=== PATIENT | male | born 1940 | race Caucasian/White ===

== ENCOUNTER 2019-01-05 12:33 | Inpatient (IN) ==
--- NOTE | 2019-01-05 09:19 | Discharge Summary ---
<Rey Arana - Last Filed: 01/05/19 09:22> Date of Encounter: 01/05/19 - Discharge Diagnosis (1) Status post right hip replacement Priority: Primary Status: Acute (2) Right hip pain Priority: Primary Status: Acute (3) Renal mass Priority: Secondary Status: Chronic (4) AAA (abdominal aortic aneurysm) Priority: Secondary Status: Chronic Qualifiers: Presence of rupture: without rupture Qualified Code(s): I71.4 - Abdominal aortic aneurysm, without rupture (5) Mass of right hip region Status: Acute (6) COPD (chronic obstructive pulmonary disease) Priority: Secondary Status: Acute Qualifiers: COPD type: unspecified COPD Qualified Code(s): J44.9 - Chronic obstructive pulmonary disease, unspecified (7) Afib Priority: Secondary Status: Acute Qualifiers: Atrial fibrillation type: unspecified Qualified Code(s): I48.91 - Unspecified atrial fibrillation (8) CAD (coronary artery disease) Priority: Secondary Status: Acute Qualifiers: Coronary Disease-Associated Artery/Lesion type: unspecified vessel or lesion type - Hospital Course Hospital course: Mr. Parker is a 78 year old male - Time Spent with Patient Total time spent providing and/or coordinating discharge services: - Discharge Medications Prescriptions: New Docusate [Colace] 100 mg PO BID 5 Days #10 capsule OxyCODONE Immed Rel [Roxicodone 5 MG] 5 mg PO Q6HR PRN 5 Days #20 tablet PRN Reason: Severe Pain OxyCODONE Immed Rel [Roxicodone 5 MG] 5 mg PO Q6HR PRN 5 Days #20 tablet PRN Reason: Pain Metoprolol XL (24 HR) Succ [Toprol Xl] 100 mg PO DAILY #30 tab.er.24h Continued Aspirin [Adult Aspirin] 81 mg PO DAILY Dabigatran Etexilate Mesylate [Pradaxa] 150 mg PO BID Diltiazem CD (24hr) [Cardizem CD] 240 mg PO DAILY GlipiZIDE XL (24 HR) [Glucotrol XL] 10 mg PO DAILY Ipratropium Neb [Atrovent Neb] 0.5 mg IH Q6HR PRN PRN Reason: Shortness Of Breath Levalbuterol Neb [Xopenex Neb] 1.25 mg IH Q8H PRN PRN Reason: Shortness Of Breath Losartan Potassium 100 mg PO DAILY Docusate [Colace] 100 mg PO QPM PRN PRN Reason: Constipation Changed Metoprolol Succinate 100 mg PO HS 30 Days #30 tab.er.24h Discontinued Metoprolol Tartrate 100 mg PO QAM Home Medications: Aspirin [Adult Aspirin] 81 mg PO DAILY 01/05/19 [History] Dabigatran Etexilate Mesylate [Pradaxa] 150 mg PO BID 01/05/19 [History] Diltiazem CD (24hr) [Cardizem CD] 240 mg PO DAILY 01/05/19 [History] Docusate [Colace] 100 mg PO BID 5 Days #10 capsule 01/05/19 [Rx] Docusate [Colace] 100 mg PO QPM PRN 01/05/19 [History] GlipiZIDE XL (24 HR) [Glucotrol XL] 10 mg PO DAILY 01/05/19 [History] Ipratropium Neb [Atrovent Neb] 0.5 mg IH Q6HR PRN 01/05/19 [History] Levalbuterol Neb [Xopenex Neb] 1.25 mg IH Q8H PRN 01/05/19 [History] Losartan Potassium 100 mg PO DAILY 01/05/19 [History] OxyCODONE Immed Rel [Roxicodone 5 MG] 5 mg PO Q6HR PRN 5 Days #20 tablet 01/05/19 [Rx] OxyCODONE Immed Rel [Roxicodone 5 MG] 5 mg PO Q6HR PRN 5 Days #20 tablet 01/05/19 [Rx] Metoprolol Succinate 100 mg PO HS 30 Days #30 tab.er.24h 01/08/19 [Rx] Metoprolol XL (24 HR) Succ [Toprol Xl] 100 mg PO DAILY #30 tab.er.24h 01/08/19 [Rx] Allergies/Adverse Reactions: Allergy/AdvReac Type Severity Reaction Status Date / Time albuterol Allergy See Verified 01/05/19 13:07 Comments heparin Allergy See Verified 01/05/19 13:22 Comments - Patient Status Disposition: Home Health Service Condition: Good - Discharge Instructions Instructions: Minimally Invasive Total Hip Replacement (DC), Precautions after Total Joint Replacement Surgery (DC), Joint Replacement Surgery (DC) Follow Up With: Ratna Arambula, REED WORKER [Primary Care Provider] - (Please call the office of your PCP on Wednesday to schedule a follow-up appointment. Make sure to tell the office that you were discharged on 01/08/19 and need to make an appointment.) <Crystal Ramirez - Last Filed: 01/09/19 18:02> - NOTES TO OUTPATIENT PROVIDER Notes to Outpatient Provider: Follow up cardiology within 1 week for afib management. Follow up oncology within 1 week for metastatic renal cell carcinoma. Date of Encounter: 01/09/19 Time of Encounter: 17:55 - Discharge Diagnosis (1) Status post right hip replacement Priority: Primary Status: Acute (2) Osteoarthritis of right hip Priority: Primary Status: Chronic Qualifiers: Osteoarthritis type: unspecified Qualified Code(s): M16.11 - Unilateral primary osteoarthritis, right hip (3) Lytic bone lesion of right femur Priority: Primary Status: Acute (4) Diabetes mellitus Priority: Secondary Status: Chronic Qualifiers: Diabetes mellitus type: type 2 Diabetes mellitus box brander insulin use: without fpc use Diabetes mellitus complication status: without complication Qualified Code(s): E11.9 - Type 2 diabetes mellitus without complications (5) History of CHF (congestive heart failure) Priority: Secondary Status: Chronic (6) Pacemaker Priority: Secondary Status: Chronic (7) Tobacco dependence Priority: Secondary Status: Chronic (8) HTN (hypertension) Priority: Secondary Status: Chronic Qualifiers: Hypertension type: unspecified Qualified Code(s): I10 - Essential (primary) hypertension (9) HLD (hyperlipidemia) Priority: Secondary Status: Chronic Qualifiers: Hyperlipidemia type: unspecified Qualified Code(s): E78.5 - Hyperlipidemia, unspecified (10) Rheumatoid arthritis Priority: Secondary Status: Chronic Qualifiers: Rheumatoid arthritis location: unspecified site Rheumatoid factor presence: unspecified presence Qualified Code(s): M06.9 - Rheumatoid arthritis, unspecified (11) Afib Priority: Secondary Status: Chronic Qualifiers: Atrial fibrillation type: chronic Qualified Code(s): I48.2 - Chronic atrial fibrillation (12) CAD (coronary artery disease) Priority: Secondary Status: Chronic Qualifiers: Coronary Disease-Associated Artery/Lesion type: unspecified vessel or lesion type [place] vs. transplanted heart: [place] heart Associated angina: angina presence unspecified Qualified Code(s): I25.10 - Atherosclerotic heart disease of [place] coronary artery without angina pectoris (13) COPD (chronic obstructive pulmonary disease) Priority: Secondary Status: Chronic Qualifiers: COPD type: unspecified COPD Qualified Code(s): J44.9 - Chronic obstructive pulmonary disease, unspecified (14) AAA (abdominal aortic aneurysm) Priority: Secondary Status: Acute Qualifiers: Presence of rupture: without rupture Qualified Code(s): I71.4 - Abdominal aortic aneurysm, without rupture (15) Renal mass Priority: Secondary Status: Acute - Hospital Course Hospital course: Mr. Parker is a 78 year old male status post right THR 01/05 secondary to OA and right proximal femur lytic mass with medical history of DM, CAD on pradaxa, CHF, Afib with pacemaker, COPD, smoker, HTN, RA, AAA and renal mass. Hospitalist team consulted for medical management and patient did develop afib rvr after surgery which was controlled with cardizem drip then weaned to PO cardizem. Patient will have follow up with steam shovel oiler within 1 week for fu rther management and evaluation. Oncology was consulted for the new finding of renal mass just before surgery with likely diagnosis of metastatic renal cell carcinoma and secondary lytic lesion to right hip. chest scan did also show multiple noncalcified pulmonary nodules. Patient will follow up with oncology later this week to discuss further management. Patient did participate in therapy and was deemed stable at time of discharge, order given by Dr. Carr yesterday. He will follow up in [facility] office in 1 week for reevaluation. - Time Spent with Patient Total time spent providing and/or coordinating discharge services: Date of admission: 01/05/19 Consults: 01/05/19 14:35 Consult to Hospitalist [CONS] Routine Consulting Provider: Hospitalist Zack Reason for Consult: postop medical care - significant comorbidities, new renal mass Time Notified: 14:42 Call Completed: Yes 01/05/19 14:46 Consult to Oncology [CONS] Routine Consulting Provider: Oncology [facility] Reason for Consult: renal mass Time Notified: 14:48 Call Completed: Yes 01/05/19 18:28 Consult to Nurse Navigator [CONS] Routine Comment: ortho navigator Consult to Nutrition [CONS] Routine Comment: Chocolate Ensure or Boost Consulting Provider: NUTRITION Reason for Dietary Consult: Other PO Supplementation Other:: Proper nutrition to facilitate wound healing Consult to Occupational Therapy [CONS] Routine Comment: Evaluate, develop and implement POC Reason for Consult: total hip replacement Does patient have active BEDREST order?: No Is patient medically & hemodynamically stable?: Yes Consult to Physical Therapy [CONS] Routine Comment: Evaluate, develop and implement POC Reason for Consult: total hip replacement Does patient have active BEDREST order?: No Is patient medically & hemodynamically stable?: Yes Consult to Filter Operator [CONS] Routine Reason for SW Consult: post op joint replacement RT Post Op Consult [CONS] Routine 01/06/19 06:03 Consult to Filter Operator [CONS] Routine Reason for SW Consult: d/c planning Discharging clinician: Chico Carr Anticipated date of discharge: 01/08/19 Labs on day of discharge: All Lab Results (24 Hours) 01/06/19 Range/Units 18:22 Prot Electrophor EER SEE NOTE Total Protein (PEP) 5.90 L (6.00-8.30) g/dL Albumin (PEP) 3.17 L (3.75-5.01) g/dL Weonz-6-Crelmredc 0.47 H (0.19-0.46) g/dL Unlsn-0-Sgyoxanvs 0.71 (0.48-1.05) g/dL Beta Globulins 0.81 (0.48-1.10) g/dL Gamma Globulins 0.74 (0.62-1.51) g/dL PEP Interpretation SEE NOTE Serum Immunofix Reflex NOT DONE IgG TNP IgA TNP IgM TNP - Impressions Hip X-Ray 01/05/19 01:00 IMPRESSION: Anatomic alignment status post right hip arthroplasty. No evidence of hardware complication. D/ / Valeriy Diehl MD / Valeriy Diehl MD Interpreting Provider: Valeriy Diehl MD Chest CT 01/06/19 15:40 IMPRESSION: Small bilateral pleural effusions with bilateral dependent lower lobe consolidation, likely passive atelectasis, new since 01/03/2019. Scattered noncalcified pulmonary nodules throughout both lungs most compatible with metastatic disease, new since 2013, measuring up to 1.1 cm. Focal area of ill-defined increased attenuation within the lateral right upper lobe, increased in extent and density since the prior study, worrisome for neoplasm to adenocarcinoma. D/ / Samantha Dempsey Cha, MD / Samantha Dempsey Cha, MD Interpreting Provider: Samantha Dempsey Cha, MD Bone Scan Nuclear Medicine 01/07/19 06:00 IMPRESSION: Focal activity at the right greater trochanter can be in keeping with recent postoperative change. Residual metastasis at the site cannot be excluded given patient history of femoral mass. Left hydronephrosis. Multifocal degenerative changes are otherwise favored as outlined above. D/ / Efrain Woody MD / Efrain Woody MD Interpreting Provider: Efrain Woody MD - Patient Status Functional capacity at discharge: uses cane/walker Overall status at discharge: patient is progressing back to baseline - Diet and Activity Activity: ambulate only with your walker, as per physical therapy Diet: advance to your usual diet
--- NOTE | 2019-01-05 12:06 | Physician Discharge Referral ---
ExtendedCare Referral Info Transfer To: [facility] Provider in Charge: Dr. Carr - Diagnosis (1) Status post right hip replacement Priority: Primary Status: Acute (2) Osteoarthritis of right hip Priority: Primary Status: Chronic (3) Lytic bone lesion of right femur Priority: Primary Status: Acute (4) Diabetes mellitus Priority: Secondary Status: Chronic (5) History of CHF (congestive heart failure) Priority: Secondary Status: Chronic (6) Pacemaker Priority: Secondary Status: Chronic (7) Tobacco dependence Priority: Secondary Status: Chronic (8) HTN (hypertension) Priority: Secondary Status: Chronic (9) HLD (hyperlipidemia) Priority: Secondary Status: Chronic (10) Rheumatoid arthritis Priority: Secondary Status: Chronic (11) Afib Priority: Secondary Status: Chronic (12) CAD (coronary artery disease) Priority: Secondary Status: Chronic (13) COPD (chronic obstructive pulmonary disease) Priority: Secondary Status: Chronic (14) AAA (abdominal aortic aneurysm) Priority: Secondary Status: Acute (15) Renal mass Priority: Secondary Status: Acute Expected Duration of Placement: <30 days Prognosis: Good Aware of Diagnosis: Patient Aware of Prognosis: Patient - Transfer Medications Prescriptions: Docusate [Colace] 100 mg PO BID 5 Days #10 capsule OxyCODONE Immed Rel [Roxicodone 5 MG] 5 mg PO Q6HR PRN 5 Days #20 tablet PRN Reason: Severe Pain OxyCODONE Immed Rel [Roxicodone 5 MG] 5 mg PO Q6HR PRN 5 Days #20 tablet PRN Reason: Pain Home Medications: Docusate [Colace] 100 mg PO BID 5 Days #10 capsule 01/05/19 [Rx] OxyCODONE Immed Rel [Roxicodone 5 MG] 5 mg PO Q6HR PRN 5 Days #20 tablet 01/05/19 [Rx] OxyCODONE Immed Rel [Roxicodone 5 MG] 5 mg PO Q6HR PRN 5 Days #20 tablet 01/05/19 [Rx] Allergies/Adverse Reactions: Allergy/AdvReac Type Severity Reaction Status Date / Time heparin Allergy Anaphylaxis Verified 01/03/19 12:58 - Respiratory Orders Oxygen / L per min (1.5L O2 as needed at home) Smoking Cessation: Smoking cessation has been advised. For more information, call the [place] Tobacco Quit Line at 7-931-XUAC-NOW. - Ancillary Orders May use pressure relief devices daily prn, May go on ARCELIA w/family/respon libertarian w/meds at nurse discretion PRN, May consult with Dentist, Auto Transport Driver, Plumber Apprentice PRN - Advance Directives Code Status: Full Code - Mobility Orders Chair, Ambulate - Rehabiliation Orders Rehab Potential: Good Rehab Orders: ROM Exercises, Evaluation for Physical Therapy, Evaluation for Occupational Therapy Other: Opsite dressing, leave intact until first post-operative visit. If dressing becomes >50% saturated, contact office, remove dressing and place appropriate dressing in its place. Do not allow for dressing to get wet. Zipline/Stan[place] in place, plan to remove at post-operative day #14-16. Total Joint Precautions x 6 weeks Apply cold therapy wrap 3-6x/day for 20 minutes at a time. Encourage ambulation throughout the day Use Incentive spirometer 10x/hour. Elevate affected extremity above heart as tolerated. Brace: Wear hip abductor brace at night x 6 weeks. - Treatments Skin tear care topically daily PRN per policy - Diet Orders Regular CERTIFICATION: I certify that the transfer of the above named patient to an Extended Care Facility is necessary for the continuing treatment of the diagnosis listed. The above information is true and accurate reflection of patient's current condition. Confidential - Redisclosure prohibited without a patient's written consent.
--- NOTE | 2019-01-05 13:26 | Anesthesia Evaluation PreOp ---
Date of Encounter: 01/05/19 Time of Encounter: 13:49 - Past History Planned Operation: Total robotic hip arthroplasty Cardiac History: [place] (1999), HTN, Hyperlipidemia, Arrhythmia (chronic Afib/SVT - poorly controlled - on pradaxa (last dose yesterday AM)), Cardiac Surgery ([facility] in 1999), Pacemaker/ICD (pacemaker), Other (prior to hip fracture, good functional capacity) Pulmonary History: Smoker, COPD (uses oxygen at home as needed) PARKING REGULATION ENFORCEMENT OFFICER History: Denies Any Significant HX Other Medical History: Renal (mass on left kidney (renal carcinoma likely), left hydronephrosis, lytic bone lesion), Diabetes Type II (oral medications only), Other (AAA, 3.[address] 12/2018) Anesthesia History: No Prior Anesthetic Complications, Past Anesthesia Medications and Allergies Aspirin [Adult Aspirin] 81 mg PO DAILY 01/05/19 [History] Dabigatran Etexilate Mesylate [Pradaxa] 150 mg PO BID 01/05/19 [History] Diltiazem CD (24hr) [Cardizem CD] 240 mg PO DAILY 01/05/19 [History] Docusate [Colace] 100 mg PO BID 5 Days #10 capsule 01/05/19 [Rx] Docusate [Colace] 100 mg PO QPM PRN 01/05/19 [History] GlipiZIDE XL (24 HR) [Glucotrol XL] 10 mg PO DAILY 01/05/19 [History] Ipratropium Neb [Atrovent Neb] 0.5 mg IH Q6HR PRN 01/05/19 [History] Levalbuterol Neb [Xopenex Neb] 1.25 mg IH Q8H PRN 01/05/19 [History] Losartan Potassium 100 mg PO DAILY 01/05/19 [History] Metoprolol Succinate 50 mg PO HS 01/05/19 [History] Metoprolol Tartrate 100 mg PO QAM 01/05/19 [History] OxyCODONE Immed Rel [Roxicodone 5 MG] 5 mg PO Q6HR PRN 5 Days #20 tablet 01/05/19 [Rx] OxyCODONE Immed Rel [Roxicodone 5 MG] 5 mg PO Q6HR PRN 5 Days #20 tablet 01/05/19 [Rx] Allergy/AdvReac Type Severity Reaction Status Date / Time albuterol Allergy See Verified 01/05/19 13:07 Comments heparin Allergy See Verified 01/05/19 13:22 Comments - Meds/Allergy Pre-op Review Medications Reviewed: Yes Allergies Reviewed: Yes Beta Blockers on Current Med List: Yes (metoprolol) If Beta Blockers taken, Date/Time (Last Dose taken): 01-05-2019 metoprolol at 9:30 Anesthesia Results - Labs Laboratory Tests 01/03/19 01/03/19 01/03/19 13:53 13:53 13:53 WBC 11.2 H Hgb 15.0 Hct 48.1 Plt Count 193 PT 21.0 H INR 1.8 APTT 75.3 H Sodium Potassium Chloride Carbon Dioxide BUN Creatinine Est GFR ( Amer) Est GFR (Non-Af Amer) BUN/Creatinine Ratio Est Mean Plasma Glucose 134 Hemoglobin A1c 6.3 H 01/03/19 13:53 WBC Hgb Hct Plt Count PT INR APTT Sodium 139 Potassium 4.5 Chloride 104 Carbon Dioxide 27 BUN 11 Creatinine 1.06 Est GFR ( Amer) > 60 Est GFR (Non-Af Amer) > 60 BUN/Creatinine Ratio 10 Est Mean Plasma Glucose Hemoglobin A1c - Imaging EKG: report reviewed, image reviewed (ATRIAL FIBRILLATION WITH ABERRANT CONDUCTION OR VENTRICULAR PREMATURE COMPLEXES PROBABLE INFERIOR MYOCARDIAL INFARCTION, OF INDETERMINATE AGE) Anesthesia Exam Last Vital Signs Temp 98.0 F 01/05/19 12:56 Pulse 99 01/05/19 12:56 Resp 18 01/05/19 12:56 BP 133/71 01/05/19 12:56 Pulse Ox 96 01/05/19 12:56 Weight: 82 kg NPO (# of Hours): > 8 hrs - HEENT Pupil (Motor): Pupils equal, EOMI Mallampati: III Teeth: Edentulous Oral Opening: Greater than 3 - PARKING [employer]ATION ENFORCEMENT OFFICER LOC: Oriented - Cardiac Rhythm: Irregular - Pulmonary Breath Sounds: bilateral Clear Respiratory Effort: Symmetrical Anesthesia Assess/Plan ASA Score: 4 Level of consciousness: Cooperative Anesthetic Plan: General Reason for No Neuroaxial/Regional Block: Patient on blood thinner Monitoring Plan: Standard Monitors Recovery Plan: PACU
--- NOTE | 2019-01-05 13:27 | History & Physical Report ---
Date of Encounter: 01/05/19 Time of Encounter: 13:27 24 Hour HP Update - Instructions Instructions: If the History and Physical is less than 30 days old and was completed prior to A.M. admission and or procedure and has NOT been updated on calendar day of procedure please complete this update prior to performing procedure. - Update Patient reports changes in Medical Condition: No Changes in examination, assessment, or condition: No Changes in Medication: No Preop tests/diagnostics Reviewed: Yes Surgery Remains Indicated: Yes Consent for Planned Operative Procedure(s) Verified: Yes - Pre-Operative Checklist Preoperative Checklist Indicated: No Prophylactic Antibiotic Ordered: Yes Is VTE Prophylaxis Indicated?: Yes
[2019-01-05] MEDS ORDERED: CeFAZolin Syr 2,000MG/20 ML 2,000 MG/20 ML SYRINGE IVPB ONE (13:29)
[2019-01-05] MEDS ORDERED: Albuterol 2.5 MG/3 ML NEBULIZER IH ONE (13:30)
[2019-01-05] MEDS ORDERED: Ringers Solution, Lactated 1,000 ML IVC SCH (13:30)
[2019-01-05] MEDS ORDERED: Levalbuterol Neb 1.25 MG/3 ML IH STA (13:49)
[2019-01-05] MEDS ORDERED: *HR* OxyCODONE ER (12 HR) 10 MG TABLET PO ONE (14:00)
[2019-01-05] MEDS ORDERED: Ethanol\\Acetic Acid\\Na Ace\\Ben 1,000 ML IRRIG.SOLN IR ONE (14:48)
[2019-01-05] MEDS ORDERED: Lidocaine -MPF 2% 2 ML VIAL ONE (14:52)
[2019-01-05] MEDS ORDERED: *HR* Propofol 200 MG/20 ML VIAL IVP ONE (14:52)
[2019-01-05] MEDS ORDERED: *HR* Midazolam HCl 2 MG/2 ML VIAL ONE (14:52)
[2019-01-05] MEDS ORDERED: *HR* Succinylcholine 200 MG/10 ML VIAL IVP ONE (14:52)
[2019-01-05] MEDS ORDERED: *HR* FentaNYL (PF) 100 MCG/2 ML VIAL ONE (14:52)
[2019-01-05] MEDS ORDERED: Lidocaine HCL 4 ML Topical Solution (Laryng-O-Jet Kit Sterile Pak) TP ONE (14:53)
[2019-01-05] MEDS ORDERED: *HR* Rocuronium Bromide 50 MG/5 ML VIAL ONE (14:54)
--- NOTE | 2019-01-05 15:02 | Event Note ---
Date of Encounter: 01/05/19 Time of Encounter: 14:54 Due to patient's significant medical comorbidities and recent finding of renal mass consult placed to hospitalist group. I did speak with Dr. Don who agreed to see patient for medical management of comorbidities. I spoke with 3NE charge nurse who is aware to call the hospitalist admitter phone once this patient arrives to the floor so they are aware this patient is ready to be seen. I also consulted oncology for further evaluation of patient's recent discovery of renal mass. I spoke with Lissy Duque. I believe Dr. Allen has already spoken to Dr. Marks about this patient and he will be concrete bucket hooker tomorrow with plans to see patient tomorrow.
[2019-01-05] MEDS ORDERED: EPHEDrine 50 MG/ML VIAL ONE (15:44)
[2019-01-05] MEDS ORDERED: Ondansetron 4 MG/2 ML VIAL ONE (15:44)
[2019-01-05] MEDS ORDERED: Dexamethasone 4 MG/ML VIAL ONE (15:44)
--- NOTE | 2019-01-05 16:41 | Orthopedic Operative Note ---
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 [place] DM Cup: 58 cup Femoral size 7 Anato Anteverted stem Head: 0 head with Shanita Procedural Notes: Palpable soft lesion superior femoral neck through the cortex, procedure performed with robotic assistance. Operative leg 2 mm longer than nonoperative as measured by preoperative CT scan. Operative procedure: The patient was brought to the operating room and placed on the operating room table. After general anesthesia was administered the patient was placed in the lateral decubitus position with the operative leg up. All pressure points were padded appropriately and the head was stabilized in the neutral position. The operative extremity was prepped and draped in the sterile surgical fashion patient received IV antibiotic prior to skin incision. 3 Steinmann pins were placed in the iliac crest 3 cm proximal to the anterior superior iliac spine this was for the robotic-assisted sensor. This was done through a small 2 cm incision. A standard posterior approach is made to the operative hip, the incision was made through the skin and subcutaneous tissue hemostasis was obtained with Bovie cautery. Using careful sharp dissection the fascia was i dentified and incised exposing the external rotators. The greater trochanter was marked, and length was measured at this time utilizing robotic assistance. The external rotators were released off the greater trochanter and tagged with #2 FiberWire suture. The capsule was T'd open and the hip was brought into internal rotation. Patient noted to have palpable softness in the area the lesion superior femoral neck. The femoral neck cut was made at the appropriate level roughly 15 mm proximal to the lesser trochanter aced on preoperative templating. An anterior capsulotomy was performed for the anterior retractor. Soft tissues removed from the acetabulum. The acetabulum reference point was confirmed. The acetabulum was then mapped with robotic assistance. Based on the preoperative plan the acetabulum was reamed in one step with a 58 reamer. The 58 acetabulum was impacted with robotic assistance and 40 degrees of abduction and 23 degrees of anteversion. The hip was brought back in to internal rotation and prepared with the box brander followed by the canal finder followed by the reaming process to a size 4 broaching process in 20 degrees anteversion. It was broached up to the appropriate size 7 Trial reduction revealed leg lengths close to normal. The femoral implant was impacted in place in 20 degrees of anteversion. Trial reduction found the hip to be stable with 0 head and Shanita. The trials were removed and the real implants were impacted in place. The hip was reduced, patient had robotic confirmed leg length of 10 mm longer than the contralateral side. The hip had excellent stability with forward flexion to 90 degrees adduction of 30 degrees and internal rotation of 60 degrees. The hip had no shuck. The hip sat with an antibacterial solution. It was irrigated out with 2 L of pulse irrigation. The Steinmann pins were removed. The hip was closed by the PA. The deep tissue was irrigated and closed deep with #1 PDS suture superficially with 0 PDS suture and skin was closed with skin luciano and zip tie. The patient was placed in a sterile dressing and abduction pillow. The patient was extubated and transferred to the recovery room in stable condition. Anesthesia: GETA Surgeon: Chico Carr Was there an mri assistant present: Yes Production Broacher: Rey Arana Estimated blood loss (cc): 400 Condition: stable Disposition: PACU
[2019-01-05] MEDS ORDERED: *HR* OxyCODONE Immed Rel 5 MG TABLET PO ONE (17:11)
[2019-01-05] MEDS ORDERED: Ondansetron 4 MG/2 ML VIAL IVP ONE (17:11)
[2019-01-05] MEDS: *HR* HYDROmorphone (PF) 1 MG/ML SYRINGE IVP PRN ×4 (17:18→17:40)
[2019-01-05] MEDS ORDERED: *HR* Promethazine 25 MG/ML VIAL IVP PRN ×2 (17:43→18:28)
[2019-01-05] MEDS ORDERED: *HR* Enoxaparin 30 MG/0.3 ML SYRINGE SQ SCH (18:00)
[2019-01-05 18:05] LABS: Hemoglobin 13.8 g/dL (12.9-16.9)
--- NOTE | 2019-01-05 18:12 | Anesthesia Evaluation Post Op ---
Date of Encounter: 01/05/19 Time of Encounter: 18:11 - Vital Signs Vital Signs: Vital Signs/O2 Sat, Most Current Temp Pulse Resp BP Pulse Ox 97.0 F L 105 18 139/80 93 01/05/19 18:09 01/05/19 18:09 01/05/19 18:09 01/05/19 18:09 01/05/19 18:09 - Lungs Lungs: Clear Ascult./Percussion - Airway Airway: Non-obstructed - Cardiovascular Regular Rate - Mental Status Mental Status: Asleep with brisk response to light stimulation - Pain Pain Scale: 1 Pain Scale used: Numeric (1 - 10) - Nausea Vomiting Nausea Vomiting: Responds to treatment with IV Meds - Hydration Hydration: NPO, Has not voided - Discharge PostOp Status: Transfer Patient to floor
[2019-01-05] MEDS ORDERED: Dextrose Gel 15 GM/37.5 ML TUBE PO PRN ×2 (18:28)
[2019-01-05] MEDS ORDERED: Levalbuterol Neb 1.25 MG/3 ML IH PRN (18:28)
[2019-01-05] MEDS ORDERED: *HR* Dextrose 50 % in Water (Syg) 50 ML SYRINGE IVP PRN (18:28)
[2019-01-05] MEDS ORDERED: Ondansetron 4 MG/2 ML VIAL IVP PRN (18:28)
[2019-01-05] MEDS ORDERED: Ipratropium Neb 0.5 MG NEBULIZER IH PRN (18:28)
[2019-01-05] MEDS ORDERED: Temazepam 15 MG CAPSULE PO PRN (18:28)
[2019-01-05] MEDS ORDERED: Naloxone 0.4 MG/ML INJ IVP PRN (18:28)
[2019-01-05] MEDS ORDERED: D5% in Water 1,000 ML IVC PRN (18:28)
[2019-01-05] MEDS ORDERED: traMADol 50 MG TABLET PO PRN (18:28)
[2019-01-05] MEDS ORDERED: Sennosides 8.6 MG TABLET PO PRN (18:28)
[2019-01-05] MEDS ORDERED: MOM Conc 10 ML UD.LIQ PO PRN (18:28)
[2019-01-05] MEDS: Ascorbic Acid 500 MG TABLET PO SCH (21:03)
[2019-01-05] MEDS: Insulin LISPRO 300 UNITS/3 ML VIAL SQ SCH ×2 (21:04→21:15)
[2019-01-05] MEDS: *HR* OxyCODONE Immed Rel 5 MG TABLET PO PRN (21:05)
[2019-01-05] MEDS: Metoprolol XL (24 HR) Succ 50 MG TAB.ER.24H PO SCH (21:05)
[2019-01-05] MEDS: Ringers Solution, Lactated 1,000 ML IVC SCH (21:12)
[2019-01-05] MEDS ORDERED: *HR* Promethazine 25 MG/ML VIAL IVP ONE (21:15)
[2019-01-05] MEDS: *HR* Dabigatran 150 MG CAPSULE PO SCH (22:24)
--- NOTE | 2019-01-06 00:59 | Internal Medicine Consult Note ---
Date of Encounter: 01/05/19 Time of Encounter: 23:15 - Assessment and Plan (1) Status post right hip replacement Current Visit: Yes Status: Acute Assessment and plan: Acute status post-right hip replacement on 01/05/19. Prior to surgery, it was discovered that the pt. 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 Patient reports no pain post-procedure and is resting comfortably. Stair-step pain medications ordered for pain mgmt. PT/OT consults ordered for rehabilitation needs. Pt. to be followed by Ortho. Patient is high risk for complications and further morbidity d/t discovered metastatic cancer to right femorial neck, new discovery of renal mass and concern for further metastases, advanced age; and risk factors and co-morbidities. Inpatient. (2) Renal mass Current Visit: Yes Status: Acute Assessment and plan: Acute renal mass discovered recently. Oncology consulted for mgmt. (3) HTN (hypertension) Current Visit: Yes Status: Chronic Assessment and plan: Hx of chronic HTN. Monitor pt. and VS. Will continue pts. HTN medications and approach cautiously d/t current hypotension. Monitor. Qualifiers: Hypertension type: essential hypertension Qualified Code(s): I10 - Essential (primary) hypertension (4) Afib Current Visit: Yes Status: Chronic Assessment and plan: Hx of chronic atrial fibrillation. Patient takes PO Cardizem daily but states he is always in Afib. On exam, patient is in Afib w/RVR according to ordered EKG, with HR bouncing from 100s to 130s but asymptomatic. Will hold PO Cardizem and start Cardizem gtt w/parameters. Monitor. Qualifiers: Atrial fibrillation type: chronic Qualified Code(s): I48.2 - Chronic atrial fibrillation (5) CAD (coronary artery disease) Current Visit: Yes Status: Chronic Assessment and plan: Hx of CAD. Pacemaker. Continuous cardiac telemetry. Will continue pts. HTN medications. Qualifiers: Coronary Disease-Associated Artery/Lesion type: unspecified vessel or lesion type [place] vs. transplanted heart: jamul heart Associated angina: angina presence unspecified Qualified Code(s): I25.10 - Atherosclerotic heart disease of [place] coronary artery without angina pectoris (6) COPD (chronic obstructive pulmonary disease) Current Visit: Yes Status: Chronic Assessment and plan: Hx of chronic COPD. Supplemental O2 w/titration and SpO2 monitoring. Continue pts. home dose Nebs. Qualifiers: COPD type: unspecified COPD Qualified Code(s): J44.9 - Chronic obstructive pulmonary disease, unspecified (7) Diabetes mellitus Current Visit: Yes Status: Chronic Assessment and plan: Hx of chronic diabetes controlled by oral anti-hyperglycemic medication. Glipizide has been continued. BG checks ACHS. Medium dose correction sliding scale insulin at bedtime and high dose correction sliding scale insulin TIDWM. A1c in a.m. labs. Qualifiers: Diabetes mellitus type: type 2 Diabetes mellitus care home insulin use: without care home use Diabetes mellitus complication status: without complicat ion Qualified Code(s): E11.9 - Type 2 diabetes mellitus without complications (8) Pacemaker Current Visit: Yes Status: Chronic Assessment and plan: Hx of Pacemaker placement. Monitor. (9) Tobacco dependence Current Visit: Yes Status: Chronic Assessment and plan: Hx of chronic tobacco abuse. Patient reports smoking 1 PPD. Denies current need for nicotine patch. Patient counseled on cessation. (10) Tobacco abuse counseling Current Visit: Yes Status: Acute Assessment and plan: Patient counseled >10 minutes on the dangers of continued tobacco abuse and the benefits of cessation, especially regarding his CAD and Afib hx. (11) DVT prophylaxis Current Visit: Yes Status: Acute Assessment and plan: Bilateral SCDs on LEs for DVT prophylaxis. - Time Spent With Patient Total time spent is greater than 50% in coordination of care (as documented) at patient's floor/unit and/or counseling patient: Greater than 35 minutes Internal Medicine - CN: HPI - Data of Consult Patient: new to practice Consult date: 01/05/19 Requesting Physician: Chico Carr MD - Consult Narrative Reason for consult: Medical mgmt of co-morbidities History of present illness: Mr. Parker is a 78 year old male w/PMH of HTN, DM, Atrial fibrillation, Pacemaker, CAD, COPD, and current tobacco abuse who was admitted for right total hip replacement. It was discovered that the pt. 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 Patient was also recently found to have a newly discovered renal mass. Oncology has been consulted. On exam, patient reports that he is not having any pain post-surgery. However, patient is in Afib w/RVR. During examination, the patient's HR was bouncing from 100s to 130s. Patient states that he is always in atrial fibrillation and that he takes Cardizem PO daily but it doesn't seem to help. Patient denies any SOB or CP. Patient reports he has had no real appetite recently and doesn't eat much. He also reports constipation and back pain but denies recent sick contacts, fever, chills, nausea, vomiting, headache, changes in vision, unusual bleeding, abdominal pain, diarrhea, cough, chest congestion, numbness, tingling, dizziness, lightheadedness, pre-syncope, or syncope. Past Med Surg Social Fam HX - Past Medical History Source: patient, old records reviewed Medical history: cancer, CHF, COPD, coronary artery disease, diabetes, hypertension Additional medical history: Pacemaker. PVD. Irregular Heart Beat. CVD. Rheumatiod Arthritis. Cataracts. Home O2 at 1.5L/Min PRN. Heart Attack. Right Hip Lytic Lesion Femoral Neck Psychiatric history: no psych history - Past Surgical History Surgical History: cancer surgery, cataract Additional surgical history: Stent to Kidney. Left Carotid Artery. Open Heart Sx - Social History Smoking Status: Current every day smoker Packs per day: 1 PPD Smokeless Tobacco Status: No Alcohol use: occasionally Drug use: none Current living situation: Home, With Family Activity Level: Independent ambulation Recent Out of Country Travel Within the Last 8 Weeks: No Exposure or Possible Exposure to Illness During Travel: No - Family History Father Race: Family Member Ethnicity: Non- Living Status: Age at : 66 Cause of : CVA Hx Family Cardiac Disorders: Yes (CVA) Hx Family Cancer: Yes (Type unknown) Hx Family Neurologic Disorders: Yes (CVA) Mother Race: Family Member Ethnicity: Non- Living Status: Age at : 88 Cause of : Natural causes Hx Family Medical Disorders: No Brother Race: Family Member Ethnicity: Non- Living Status: Age at : 89 Cause of : Cancer - Type unknown Hx Family Cardiac Disorders: Yes (CAD) Hx Family Cancer: Yes (Type unknown) Sister Race: Family Member Ethnicity: Non- Living Status: Age at : 79 Cause of : Cancer - Type unknown Hx Family Cancer: Yes (Type unknown) - Constitutional Constitutional: as per HPI - EENT Eyes: as per HPI Ears: as per HPI Nose, mouth and throat: as per HPI - Breasts Breasts: as per HPI - Cardiovascular Cardiovascular ROS IM: as per HPI - Respiratory Respiratory: as per HPI - Gastrointestinal Gastrointestinal: as per HPI, constipation, other (Reduced appetite) - Genitourinary Genitourinary ROS male: as per HPI - Musculoskeletal Musculoskeletal ROS IM: as per HPI, back pain - Integumentary Integumentary IM: as per HPI - Neurological Neurological ROS: as per HPI - Psychiatric Psychiatric: as per HPI - Endocrine Endocrine IM: as per HPI - Hematologic/Lymphatic Hematologic/Lymphatic: as per HPI - Allergic/Immunologic Allergic/Immunologic: as per HPI Internal Medicine - CN: Meds Aspirin [Adult Aspirin] 81 mg PO DAILY 01/05/19 [History] Dabigatran Etexilate Mesylate [Pradaxa] 150 mg PO BID 01/05/19 [History] Diltiazem CD (24hr) [Cardizem CD] 240 mg PO DAILY 01/05/19 [History] Docusate [Colace] 100 mg PO BID 5 Days #10 capsule 01/05/19 [Rx] Docusate [Colace] 100 mg PO QPM PRN 01/05/19 [History] GlipiZIDE XL (24 HR) [Glucotrol XL] 10 mg PO DAILY 01/05/19 [History] Ipratropium Neb [Atrovent Neb] 0.5 mg IH Q6HR PRN 01/05/19 [History] Levalbuterol Neb [Xopenex Neb] 1.25 mg IH Q8H PRN 01/05/19 [History] Losartan Potassium 100 mg PO DAILY 01/05/19 [History] Metoprolol Succinate 50 mg PO HS 01/05/19 [History] Metoprolol Tartrate 100 mg PO QAM 01/05/19 [History] OxyCODONE Immed Rel [Roxicodone 5 MG] 5 mg PO Q6HR PRN 5 Days #20 tablet 01/05/19 [Rx] OxyCODONE Immed Rel [Roxicodone 5 MG] 5 mg PO Q6HR PRN 5 Days #20 tablet 01/05/19 [Rx] Allergy/AdvReac Type Severity Reaction Status Date / Time albuterol Allergy See Verified 01/05/19 13:07 Comments heparin Allergy See Verified 01/05/19 13:22 Comments Hospitalist - CN: Exam - Constitutional Vitals: Temp Pulse Resp BP Pulse Ox 98.1 F 112 15 123/64 97 01/05/19 18:19 01/05/19 23:41 01/05/19 23:41 01/05/19 23:41 01/05/19 23:41 General appearance IM: Present: cooperative, A&O X 3, pleasant, no acute distress, answers questions appropriately Exam: Patient examined at bedside. Patient reports no pain currently. Patient is in Afib w/RVR but asymptomatic. HR bouncing from 100s to 130s. Patient denies any other symptoms or complaints at this time. VS: 98.1F temp, HR 112, RR 15, BP 123/64, SpO2 97% on RA. - Head Head exam: Present: atraumatic, normal inspection - Eye Eye exam: Present: normal appearance, PERRL, conjuntiva pink Pupils: Present: normal accommodation, PERRL - ENT ENT exam: Present: normal exam - Neck Neck exam general surgery: Present: normal inspection, supple, trachea midline - Respiratory Respiratory exam: Present: CTAB - Cardiovascular Cardiovascular exam IM: Present: irregular rhythm - GI/Abdominal GI/Abdominal exam IM: Present: soft, no peritoneal signs - Rectal Rectal exam: Present: deferred - Additional comments: exam deferred. - Extremities Exam Extremities exam IM: Present: warm, radial pulses palpable and symmetrical - Back Exam Back exam: Present: normal inspection - Neurological Exam Neurological exam: Present: alert, CN II-XII intact, oriented X3, no focal deficits, strengths equal and symetr throughout - Psychiatric Psychiatric exam: Present: normal affect, normal mood - Skin Skin exam IM: Present: dry, intact Internal Medicine - CN: Reslt - Labs CBC & Chem 7: 01/05/19 17:53 Labs: Short CBC 01/05/19 Range/Units 17:53 Hgb 13.8 (12.9-16.9) g/dL Hct 42.0 (37.5-50.1) % - Impressions Impressions Hip X-Ray 01/05/19 01:00 IMPRESSION: Anatomic alignment status post right hip arthroplasty. No evidence of hardware complication. D/ / Valeriy Diehl MD / Valeriy Diehl MD Interpreting Provider: Valeriy Diehl MD - Diagnostic Studies Other Images Additional comments: EXAMINATION: 2 XRAY VIEWS OF THE RIGHT HIP 01/05/2019 5:48 pm COMPARISON: 01/03/2019 HISTORY: ORDERING SYSTEM PROVIDED HISTORY: s/p thr Follow-up after hip surgery. Subsequent exam. FINDINGS: Postsurgical changes status post right hip arthroplasty. There is anatomic alignment of the hardware. No evidence of complication. No acute fracture or dislocation is demonstrated. Soft tissue air and skin luciano due to the recent surgery are noted. XR/XR hip complete RT IMPRESSION: Anatomic alignment status post right hip arthroplasty. No evidence of hardware complication. D/ / Valeriy Diehl MD / Valeriy Diehl MD Interpreting Provider: Valeriy Diehl MD Consult Discharge Plan - Plan Referrals: Ratna Arambula, [facility] [Primary Care Provider] -
[2019-01-06] MEDS: HYDROcodone BIT/Homatropine 5 MG TABLET PO PRN ×2 (03:36→12:34)
[2019-01-06 05:24] LABS: Basophils % 0.1 %; Hematocrit 39.1 % (37.5-50.1); Hemoglobin 12.3 g/dL (12.9-16.9); Immature Granulocytes % 0.5 % (0-4); Lymphocytes # 0.5 K/mcL (0.6-4.6); Lymphocytes % 3.6 %; Mean Corpuscular HGB Conc 31.5 g/dL (31.6-35.5); Mean Corpuscular Hemoglobin 30.2 pg (28.0-33.3); Mean Corpuscular Volume 96.1 fL (83.0-100.0); Mean Platelet Volume 11.1 fL (9.4-12.4); Monocytes # 1.1 K/mcL (0.0-1.3); Monocytes % 7.9 %; Neutrophils # 12.5 K/mcL (1.6-8.9); Platelet Count 164 K/mcL (140-400); Red Blood Count 4.07 M/mcL (4.19-5.50); Red Cell Distribution Width 13.2 % (11.5-14.5); Segmented Neutrophils % 87.9 %; White Blood Count 14.2 K/mcL (4.3-11.1)
[2019-01-06 05:43] LABS: BUN/Creatinine Ratio 14 (6-26); Blood Urea Nitrogen 20 mg/dL (8-23); Calcium 8.7 mg/dL (8.6-10.3); Carbon Dioxide 22 mEq/L (23-29); Chloride 100 mEq/L (98-107); Glucose 389 mg/dL (70-105); Osmolality,Calculated 289 (280-300); Potassium 5.3 mEq/L (3.5-5.1); Sodium 130 mEq/L (136-145); eGFR For African Americans > 60 (> 60); eGFR For Non-African Americans 50 (> 60)
[2019-01-06 06:01] LABS: Chol/HDL Ratio 3.3 (0-4.9)
--- NOTE | 2019-01-06 06:47 | Orthopedics Progress Note ---
Date of Encounter: 01/06/19 Time of Encounter: 06:46 Subjective Interval history: Patient was seen this morning doing well without complaints. Afebrile vital signs stable. Operative extremity: Neurovascularly intact Dressing clean dry and intact Calves nontender Assessment and plan: Continue with postoperative care Hematocrit 39 possible discharge today Objective Vital signs: Vital Signs Temp Pulse Resp BP Pulse Ox 01/06/19 03:38 97.6 F 109 15 122/64 96 01/06/19 01:30 88 110/68 01/06/19 01:15 109 109/70 01/06/19 00:59 108 112/69 01/05/19 23:41 112 15 123/64 97 01/05/19 21:40 131 116/70 95 01/05/19 21:16 93 01/05/19 20:40 126 117/77 93 01/05/19 19:40 113 129/79 95 01/05/19 19:19 110 117/76 93 01/05/19 18:19 98.1 F 104 18 132/78 94 01/05/19 18:09 97.0 F L 105 18 139/80 93 01/05/19 17:59 97.0 F L 99 18 123/84 93 01/05/19 17:49 120 20 133/85 93 01/05/19 17:39 84 20 133/71 93 01/05/19 17:29 97.5 F L 89 20 116/79 93 01/05/19 17:19 92 20 126/72 93 01/05/19 17:09 107 20 127/76 95 01/05/19 16:59 99.0 F 95 22 117/66 95 01/05/19 14:47 98.0 F 99 18 133/71 96 01/05/19 14:01 18 133/71 96 01/05/19 12:56 98.0 F 99 18 133/71 96 Intake and Output 01/05/19 01/05/19 01/06/19 15:59 23:59 07:59 Intake Total 20 / 260 240 / 260 110.4 / 110.4 Output Total 400 / 400 475 / 475 Balance 20 / -140 -160 / -140 -364.6 / -364.6 Intake: IV Fluids 20 / 20 110.4 / 110.4 Cardizem 50 MG In 0.9 % Sodium 10.4 / 10.4 Chloride 40 ML @ 2.5 MG/HR 2.5 mls/hr IVC CONT MOISES Rx#: [id number] Ancef Syringe 2,000 MG/20 ML 2, 20 / 20 000 mg In 20 ml @ 200 mls/hr IVPB PREOP ONE Rx#:[id number] Ancef 2,000 MG In 0.9 % Sodium 100 / 100 Chloride 100 ML @ 200 mls/hr IVPB Q8HR MOISES Rx#:[id number] Oral 240 / 240 Output: Urine 0 / 0 225 / 225 Emesis 250 / 250 Estimated Blood Loss 400 / 400 Other: Weight 82.1 kg 82.3 kg Blood Glucose* 84 230 Patient Weight 01/06/19 23:59 Weight 82.3 kg - Labs CBC & BMP: 01/06/19 05:09 01/06/19 05:09 Labs: Abnormal lab results WBC 14.2 K/mcL (4.3-11.1) H 01/06/19 05:09 RBC 4.07 M/mcL (4.19-5.50) L 01/06/19 05:09 Hgb 12.3 g/dL (12.9-16.9) L D 01/06/19 05:09 MCHC 31.5 g/dL (31.6-35.5) L 01/06/19 05:09 Neutrophils # 12.5 K/mcL (1.6-8.9) H 01/06/19 05:09 Lymphocytes # 0.5 K/mcL (0.6-4.6) L 01/06/19 05:09 Sodium 130 mEq/L (136-145) L 01/06/19 05:09 Potassium 5.3 mEq/L (3.5-5.1) H 01/06/19 05:09 Carbon Dioxide 22 mEq/L (23-29) L 01/06/19 05:09 Creatinine 1.38 mg/dL (0.70-1.30) H 01/06/19 05:09 Est GFR (Non-Af Amer) 50 (> 60) L 01/06/19 05:09 Glucose 389 mg/dL (70-105) H 01/06/19 05:09 POC Glucose 230 mg/dL (70-99) H 01/05/19 21:13 HDL Cholesterol 28 mg/dL (40-59) L 01/06/19 05:09 Consult Discharge Plan - Plan Referrals: Ratna Arambula, [employer] [Primary Care Provider] -
[2019-01-06 08:27] LABS: Estimated Average Glucose 131 mg/dl
[2019-01-06] MEDS: Metoprolol 100 MG TABLET PO SCH (08:41)
[2019-01-06] MEDS: Multivit/Ca/Min/Fe/FA 1 TAB TABLET PO SCH (08:41)
[2019-01-06] MEDS: *HR* GlipiZIDE XL (24 HR) 10 MG TABLET PO SCH ×2 (08:41→08:42)
[2019-01-06] MEDS: Ascorbic Acid 500 MG TABLET PO SCH ×2 (08:41→17:23)
[2019-01-06] MEDS: *HR* Dabigatran 150 MG CAPSULE PO SCH ×2 (08:41→22:03)
[2019-01-06] MEDS: Insulin LISPRO 300 UNITS/3 ML VIAL SQ SCH ×4 (08:42→22:05)
[2019-01-06] MEDS ORDERED: Diltiazem CD (24hr) 240 MG CAPSULE PO SCH (09:00)
--- NOTE | 2019-01-06 09:23 | Event Note ---
Date of Encounter: 01/06/19 Time of Encounter: 10:00 I have seen and assessed this patient and I agree with plan per night team Plan Atrial fibrillation with RVR. Weaned off cardizem drip and started on po cardizem and beta blockers. Rate controlled. Continue pradaxa for anticoagulation Renal mass and right hip mass. Oncology consulted. Hip biopsy report pending
[2019-01-06] MEDS: Aspirin Enteric Coated 81 MG Tablet PO SCH (09:32)
--- NOTE | 2019-01-06 10:42 | Oncology Inp Consult Note ---
<Enzo Schultz - Last Filed: 01/06/19 16:15> Date of Encounter: 01/06/19 Time of Encounter: 10:10 Assessment and Plan (1) Renal mass Status: Acute Assessment and plan: 7.6x 7.2 x 4.6 cm mass in lower pole of left kidney, previously unidentified Unclear at this time what the origin is, possibly RCC vs. Lung cancer vs. Myeloma, etc Concern for metastatic disease with bony involvement in right femoral head, biopsy pending We will check SPEP, Free Labette light chains, LDH CT Chest w/o, Bone scan F/u at cancer center on 01/12/19 (2) Mass of right hip region Status: Acute Assessment and plan: Right femoral neck lytic lesion, suspect metastatic disease S/p total right hip replacement yesterday Intraoperative biopsy is pending (3) History of skin cancer of unknown type Status: Chronic Assessment and plan: Unknown type, poorly ressected per patient Not clearly evident on PE (4) History of bladder cancer Status: Resolved Assessment and plan: Remote history - Data of Consult Patient: new to practice Consult date: 01/06/19 Requesting Physician: Chico Carr MD Primary Care Provider: Ratna Arambula CNP - Consult Narrative Reason for consult: Concern for metastatic cancer to right femoral neck History of present illness: Mr. Parker is a 78yo man who presented to [facility] on 01/05/19 due to new mass on his right femoral neck. Hematology oncology was consulted on 01/06/19 due to concern for metastatic disease with masses noted on left kidney and right femoral neck. In short, Mr. Parker is a 78-year-old gentleman with history of extensive CAD status post CABG, carotid stenosis status post carotid endarterectomy, renal artery stenosis status post stent, unknown skin malignancy on his nose one year ago, bladder cancer in 2004 with chemotherapy lost follow-up 3 years ago who presented to [facility] for total right hip replacement after identification of mass on right femoral neck with suspicion of metastatic cancer to the right small neck and large lytic lesion. The patient states that he has had pain in his bilateral hips for approximately 6-7 years which he assumed was arthritic pain, however approximately 4-5 days ago he had sudden onset severe right hip pain which caused him to go to his primary care physician. This pain was sharp in nature, and it made it difficult for him to walk. He had never had anything quite so severe as for his hip pain was concerned. The pain was also worse when he pushed on his hip. He does say that he recently bought some shoe inserts and had been walking on them. He was told initially that he should only use them for 1 hour a day, however he wore them for about a week. He has not suffered any recent injuries or traumas. He is unsure whether or not there is anything else going on with this hip. He does deny any fevers, chills, however he says that he occasionally does have some night sweats which are infrequent. He says that he has lost approximately 20 pounds over the past 2-3 years which has been unintentional. He does say that he is had poor by mouth intake due to early satiety he otherwise has no positive review of systems. The patient did visit his primary care provider at which time he had x-rays of his hip that demonstrated a large lytic lesion of his right femoral neck. He was admitted to [facility] for right total hip replacement but also had a CT of his abdomen and pelvis at which time he was found to have a mass in the lower pole of his left kidney that is 7.6 cm in diameter with obstruction to the left ureter. Oncology Hx The patient does have history of bladder cancer in 2004 which was treated in [place]. He states that he had intravesicular chemotherapy once weekly for a number of weeks however he is unsure of exactly what the regimen was. He did have yearly follow-up for several years, however he apparently stopped approximately 3 years ago. 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 Social Hx The patient does have a [id number] history of smoking and continues to smoke this time. He does drink approximately 3 drinks 3-4 times a week. He drinks several cups of coffee a day. He lives with his . Family Hx Admits to extensive family history of cancer with 2 brothers who had cancer and 3 sisters who have had cancer however he is unsure of what types of cancers they had. Past Med Surg Social Fam HX - Past Medical History Medical history: cancer, CHF, COPD, coronary artery disease, diabetes, hypertension Additional medical history: Pacemaker. PVD. Irregular Heart Beat. CVD. Rheumatiod Arthritis. Cataracts. Home O2 at 1.5L/Min PRN. Heart Attack. Right Hip Lytic Lesion Femoral Neck Psychiatric history: no psych history - Past Surgical History Surgical History: cancer surgery, cataract Additional surgical history: Stent to Kidney. Left Carotid Artery. Open Heart Sx - Social History Smoking Status: Current every day smoker Packs per day: 1 PPD Smokeless Tobacco Status: No Alcohol use: occasionally Drug use: none - Family History Father Race: Family Member Ethnicity: Non- Living Status: Age at : 66 Cause of : CVA Hx Family Cardiac Disorders: Yes (CVA) Hx Family Cancer: Yes (Type unknown) Hx Family Neurologic Disorders: Yes (CVA) Mother Race: Family Member Ethnicity: Non- Living Status: Age at : 88 Cause of : Natural causes Hx Family Medical Disorders: No Brother Race: Family Member Ethnicity: Non- Living Status: Age at : 89 Cause of : Cancer - Type unknown Hx Family Cardiac Disorders: Yes (CAD) Hx Family Cancer: Yes (Type unknown) Sister Race: Family Member Ethnicity: Non- Living Status: Age at : 79 Cause of : Cancer - Type unknown Hx Family Cancer: Yes (Type unknown) Medications and Allergies Aspirin [Adult Aspirin] 81 mg PO DAILY 01/05/19 [History] Dabigatran Etexilate Mesylate [Pradaxa] 150 mg PO BID 01/05/19 [History] Diltiazem CD (24hr) [Cardizem CD] 240 mg PO DAILY 01/05/19 [History] Docusate [Colace] 100 mg PO BID 5 Days #10 capsule 01/05/19 [Rx] Docusate [Colace] 100 mg PO QPM PRN 01/05/19 [History] GlipiZIDE XL (24 HR) [Glucotrol XL] 10 mg PO DAILY 01/05/19 [History] Ipratropium Neb [Atrovent Neb] 0.5 mg IH Q6HR PRN 01/05/19 [History] Levalbuterol Neb [Xopenex Neb] 1.25 mg IH Q8H PRN 01/05/19 [History] Losartan Potassium 100 mg PO DAILY 01/05/19 [History] Metoprolol Succinate 50 mg PO HS 01/05/19 [History] Metoprolol Tartrate 100 mg PO QAM 01/05/19 [History] OxyCODONE Immed Rel [Roxicodone 5 MG] 5 mg PO Q6HR PRN 5 Days #20 tablet 01/05/19 [Rx] OxyCODONE Immed Rel [Roxicodone 5 MG] 5 mg PO Q6HR PRN 5 Days #20 tablet 01/05/19 [Rx] Allergy/AdvReac Type Severity Reaction Status Date / Time albuterol Allergy See Verified 01/05/19 13:07 Comments heparin Allergy See Verified 01/05/19 13:22 Comments Review of systems: Constitutional: Denies fevers, chills, generalized fatigue. Admits to 40 pound weight loss over 2-3 years, admits to night sweats Head/Neck: Denies JARAMILLO, neck stiffness EENT: Denies vision changes/blurriness, rhinorrhea, congestion, sore throat CVS: Denies chest pain, palpitations, RAINES, orthopnea, edema, PND Pulm: Denies SOB, cough, sputum, hemoptysis, wheezing GI: Denies abdominal pain, nausea, vomiting, diarrhea, constipation, melena, hematemasis. Admits to early satiety. : Denies dysuria, increased frequency, urgency, hematuria Heme: Denies ease of bleeding or bruising MSK: Admits to bilateral hip pain. Skin: Denies rashes, ulcers, color changes Neuro: Denies JARAMILLO, paresthesias, focal deficits, ataxia Oncology - Exam - Constitutional Exam: Gen: Vitals noted. No acute distress. Eyes: anicteric sclerae, moist conjunctivae; no lid-lag; Pupils equal and reactive to light HENT: Atraumatic; oropharynx clear with moist mucous membranes and no mucosal ulcerations; normal hard and soft palate Neck: Trachea midline; supple, no thyromegaly or lymphadenopathy Cardiac: RRR, no murmur, +S1/S2 Pulmonary: CTA bilaterally, no wheezes, rales or rhonchi, equal chest expansion Abdomen: soft, nontender, no guarding. Fullness noted in left lower quadrant without discrete margins which is nontender. MSK: ROM intact, no joint swelling noted Extremities: no BLE edema, nontender calf, no cyanosis or clubbing. Post op right hip which is tender to palpation Skin: Normal temperature, turgor and texture; no rash, ulcers or subcutaneous nodules Neuro: moves all extremities, no focal deficits. Psych: Appropriate mood and behavior. A&Ox3 Consult Discharge Plan - Plan Instructions: Minimally Invasive Total Hip Replacement (DC), Precautions after Total Joint Replacement Surgery (DC), Joint Replacement Surgery (DC) Referrals: Ratna Arambula CNP [Primary Care Provider] - Inpatient Charges Provider: Dr. Toro Marks <Vinay Marks - Last Filed: 01/06/19 21:57> Date of Encounter: 01/06/19 - Data of Consult Requesting Physician: Chico Carr MD Primary Care Provider: Ratna Arambula CNP - Attending Attestation I have seen and examined Mr. Parker and agree with the assessment put in place by the resident. Mr. Parker presented with an impending right hip pathologic fracture and is s/p right CECI. CT A/P with left renal mass most c/w RCC, the likely primary site. Other considerations include lung cancer and myeloma. I have requested CT chest and bone scan to complete workup. He may be d/c from the hospital, and I will arrange for f/u next to review pathology and finalize treatment plan. We did discuss potential treatment options using immunotherapy working under the assumption of RCC. He would be interested in pursuing therapy. All questions answered to the best of my ability. Inpatient Charges Provider: Dr. Toro Marks Consult - Inpatient Medicare Only: [id number]
[2019-01-06] MEDS: Ringers Solution, Lactated 1,000 ML IVC SCH ×3 (11:48→23:34)
--- NOTE | 2019-01-06 13:30 | Event Note ---
Date of Encounter: 01/06/19 Time of Encounter: 12:00 PCR - POD#1 s/p right THR 01/05/19 secondary to arthritis and lytic lesion to proximal femur Patient seen at bedside, without complaints. A&O x 3 Afebrile, vital signs stable. Dressings c/d/i, no calf tenderness to palpation, good dorsiflexion of foot, sensation intact distally. Labs reviewed. H/H - 12.3/39.1 stable, asymptomatic Pain control: adequate Participating in PT. All questions and concerns addressed. Educated on use of incentive spirometer. Encouraged ambulation and proper hydration. Patient educated on post-operative restrictions and post-operative care. Appreciate hospitalist input on medical management. Patient did require cardizem drip overnight after surgery due to afib rvr. stable today. Oncology has also been consulted due to recent finding of renal mass. Pending work up recommendations from oncology team. Assessment and plan: Continue with postoperative care Discharge plan: Home with home health, discharge pending medical clearance.
--- NOTE | 2019-01-06 13:33 | Physician Discharge Referral ---
<Crystal Ramirez - Last Filed: 01/06/19 13:32> Home Health/Hosp Referral Info Transfer to: Home Health Attending Provider: Dr. Carr - Diagnosis (1) Status post right hip replacement Priority: Primary Status: Acute (2) Osteoarthritis of right hip Priority: Primary Status: Chronic (3) Lytic bone lesion of right femur Priority: Primary Status: Acute (4) Diabetes mellitus Priority: Secondary Status: Chronic (5) History of CHF (congestive heart failure) Priority: Secondary Status: Chronic (6) Pacemaker Priority: Secondary Status: Chronic (7) Tobacco dependence Priority: Secondary Status: Chronic (8) HTN (hypertension) Priority: Secondary Status: Chronic (9) HLD (hyperlipidemia) Priority: Secondary Status: Chronic (10) Rheumatoid arthritis Priority: Secondary Status: Chronic (11) Afib Priority: Secondary Status: Chronic (12) CAD (coronary artery disease) Priority: Secondary Status: Chronic (13) COPD (chronic obstructive pulmonary disease) Priority: Secondary Status: Chronic (14) AAA (abdominal aortic aneurysm) Priority: Secondary Status: Acute (15) Renal mass Priority: Secondary Status: Acute - Respiratory Orders Smoking Cessation: Smoking cessation has been advised. For more information, call the [place] Tobacco Quit Line at 6-018-CIAS-NOW. - Diet/Nutrition Diet/Nutrition Orders: Regular - Activity Activity Orders: Ambulate, Chair, Walker - Services Needed Following services are medically necessary services: Nursing, Home Health Aide, Physical Therapy, Occupational Therapy Home Care Orders: Opsite dressing, leave intact until first post-operative visit. If dressing becomes >50% saturated, contact office, remove dressing and place appropriate dressing in its place. Do not allow for dressing to get wet. Zipline/Vladimir in place, plan to remove at post-operative day #14-16. Total Joint Precautions x 6 weeks Apply cold therapy wrap 3-6x/day for 20 minutes at a time. Encourage ambulation throughout the day Use Incentive spirometer 10x/hour. Elevate affected extremity above heart as tolerated. Brace: Wear hip abductor brace at night x 6 weeks. - Transfer Medications Prescriptions: Metoprolol Succinate 100 mg PO HS 30 Days #30 tab.er.24h Metoprolol XL (24 HR) Succ [Toprol Xl] 100 mg PO DAILY #30 tab.er.24h Home Medications: Aspirin [Adult Aspirin] 81 mg PO DAILY 01/05/19 [History] Dabigatran Etexilate Mesylate [Pradaxa] 150 mg PO BID 01/05/19 [History] Diltiazem CD (24hr) [Cardizem CD] 240 mg PO DAILY 01/05/19 [History] Docusate [Colace] 100 mg PO BID 5 Days #10 capsule 01/05/19 [Rx] Docusate [Colace] 100 mg PO QPM PRN 01/05/19 [History] GlipiZIDE XL (24 HR) [Glucotrol XL] 10 mg PO DAILY 01/05/19 [History] Ipratropium Neb [Atrovent Neb] 0.5 mg IH Q6HR PRN 01/05/19 [History] Levalbuterol Neb [Xopenex Neb] 1.25 mg IH Q8H PRN 01/05/19 [History] Losartan Potassium 100 mg PO DAILY 01/05/19 [History] OxyCODONE Immed Rel [Roxicodone 5 MG] 5 mg PO Q6HR PRN 5 Days #20 tablet 01/05/19 [Rx] OxyCODONE Immed Rel [Roxicodone 5 MG] 5 mg PO Q6HR PRN 5 Days #20 tablet 01/05/19 [Rx] Metoprolol Succinate 100 mg PO HS 30 Days #30 tab.er.24h 01/08/19 [Rx] Metoprolol XL (24 HR) Succ [Toprol Xl] 100 mg PO DAILY #30 tab.er.24h 01/08/19 [Rx] Allergies/Adverse Reactions: Allergy/AdvReac Type Severity Reaction Status Date / Time albuterol Allergy See Verified 01/05/19 13:07 Comments heparin Allergy See Verified 01/05/19 13:22 Comments Certification: Further, I certify that my clinical findings support that this patient is homebound (i.e. absences from home require considerable and taxing effort and are for medical reasons or anabaptist services or infrequently or short duration when for other reasons) because: Homebound Reason: Post-surgery restriction and or conditions limit ability to leave home Attestation: My signature below is to certify that this patient is under my care and that I, or nurse practitioner, or a physician dental laboratory assistant working with me, has a [id number] encounter with this patient. <Ty Lindsey - Last Filed: 01/08/19 14:40> - Diagnosis (1) Atrial fibrillation with RVR Status: Acute (2) Renal mass Status: Acute (3) Status post right hip replacement Status: Acute (4) COPD (chronic obstructive pulmonary disease) Status: Chronic (5) CAD (coronary artery disease) Status: Chronic (6) Diabetes mellitus Status: Chronic (7) Pacemaker Status: Chronic (8) Tobacco dependence Status: Chronic (9) HTN (hypertension) Status: Chronic (10) DVT prophylaxis Status: Acute (11) Tobacco abuse counseling Status: Acute - Respiratory Orders Smoking Cessation: Smoking cessation has been advised. For more information, call the [place] Tobacco Quit Line at 6-280-RGZNNOW. Certification: Further, I certify that my clinical findings support that this patient is homebound (i.e. absences from home require considerable and taxing effort and are for medical reasons or anabaptist services or infrequently or short duration when for other reasons) because: Attestation: My signature below is to certify that this patient is under my care and that I, or nurse practitioner, or a physician's dental laboratory assistant working with me, has a [id number] encounter with this patient.
[2019-01-06] MEDS: Metoprolol XL (24 HR) Succ 50 MG TAB.ER.24H PO SCH (22:04)
[2019-01-07] MEDS: HYDROcodone BIT/Homatropine 5 MG TABLET PO PRN ×2 (01:19→12:03)
[2019-01-07 02:32] LABS: Basophils % 0.2 %; Eosinophils % 0.2 %; Hematocrit 35.4 % (37.5-50.1); Hemoglobin 11.4 g/dL (12.9-16.9); Immature Granulocytes % 0.5 % (0-4); Lymphocytes # 1.3 K/mcL (0.6-4.6); Lymphocytes % 7.4 %; Mean Corpuscular HGB Conc 32.2 g/dL (31.6-35.5); Mean Corpuscular Hemoglobin 29.7 pg (28.0-33.3); Mean Corpuscular Volume 92.2 fL (83.0-100.0); Mean Platelet Volume 11.4 fL (9.4-12.4); Monocytes # 1.6 K/mcL (0.0-1.3); Monocytes % 8.8 %; Neutrophils # 14.9 K/mcL (1.6-8.9); Platelet Count 178 K/mcL (140-400); Red Blood Count 3.84 M/mcL (4.19-5.50); Red Cell Distribution Width 13.1 % (11.5-14.5); Segmented Neutrophils % 82.9 %; White Blood Count 17.9 K/mcL (4.3-11.1)
[2019-01-07 02:46] LABS: Calcium 9.2 mg/dL (8.6-10.3); Potassium 4.8 mEq/L (3.5-5.1)
[2019-01-07] MEDS: *HR* OxyCODONE Immed Rel 5 MG TABLET PO PRN (05:38)
[2019-01-07] MEDS: *HR* Dabigatran 150 MG CAPSULE PO SCH ×2 (08:24→21:35)
[2019-01-07] MEDS: Multivit/Ca/Min/Fe/FA 1 TAB TABLET PO SCH (08:25)
[2019-01-07] MEDS: Metoprolol 100 MG TABLET PO SCH (08:25)
[2019-01-07] MEDS: Aspirin Enteric Coated 81 MG Tablet PO SCH (08:25)
[2019-01-07] MEDS: Insulin LISPRO 300 UNITS/3 ML VIAL SQ SCH ×4 (08:25→21:36)
[2019-01-07] MEDS: Ascorbic Acid 500 MG TABLET PO SCH ×2 (08:25→16:16)
[2019-01-07] MEDS: Metoprolol XL (24 HR) Succ 50 MG TAB.ER.24H PO SCH (09:25)
--- NOTE | 2019-01-07 09:28 | Internal Med Progress Note ---
Hospitalist Progress Note - Encounter Date of Encounter: 01/07/19 Time of Encounter: 10:00 - Subjective Interval History: No acute events overnight - Exam Vitals: Temp Pulse Resp BP Pulse Ox 97.9 F 107 17 108/52 89 01/07/19 05:42 01/07/19 05:42 01/07/19 05:42 01/07/19 05:42 01/07/19 05:42 Exam: General appearance: Present: A&O X 3, no acute distress Head exam: Present: normocephalic Respiratory exam: Present: CTAB. Absent: accessory muscle use, rales, rhonchi, wheezes Cardiovascular exam: Irregularly irregular GI/Abdominal exam: Soft, NT, ND, +BS Extremities exam: Absent: pedal edema Neurological exam: Present: alert, oriented X3, no focal deficits. Absent: altered - Assessment and Plan (1) Atrial fibrillation with RVR Current Visit: Yes Status: Acute Assessment and Plan: Patient went into afib with RVR post surgery and was started on a cardizem drip Was successfully weaned to po cardizem and beta blockers yesterday but reportedly was in RVR this am Back on oral rate control meds. Will increase night time dose of beta blockers Can be discharged in am if rate controlled over next 24hrs (2) Renal mass Current Visit: Yes Status: Acute Assessment and Plan: Renal mass and right hip mass discovered incidentally. Oncology consulted and will follow up outpatient CT chest and bone scan done for screening Increased activity noted at greater trochanter on bone scan may represent metastases (3) Status post right hip replacement Current Visit: Yes Status: Acute Assessment and Plan: Acute status post-right hip replacement on 01/05/19. Prior to surgery, it was discovered that the pt. 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 Patient reports no pain post-procedure and is resting comfortably. Stair-step pain medications ordered for pain mgmt. PT/OT consults ordered for rehabilitation needs. Pt. to be followed by Ortho. Patient is high risk for complications and further morbidity d/t discovered metastatic cancer to right femorial neck, new discovery of renal mass and concern for further metastases, advanced age; and risk factors and co-morbidities. Inpatient. (4) COPD (chronic obstructive pulmonary disease) Current Visit: Yes Status: Chronic Assessment and Plan: Hx of chronic COPD. Supplemental O2 w/titration and SpO2 monitoring. Continue pts. home dose Nebs. (5) CAD (coronary artery disease) Current Visit: Yes Status: Chronic Assessment and Plan: Hx of CAD. Pacemaker. Continuous cardiac telemetry. Will continue pts. HTN medications. (6) Diabetes mellitus Current Visit: Yes Status: Chronic Assessment and Plan: Hx of chronic diabetes controlled by oral anti-hyperglycemic medication. Glipizide has been continued. BG checks ACHS. Medium dose correction sliding scale insulin at bedtime and high dose correction sliding scale insulin TIDWM. A1c in a.m. labs. (7) Pacemaker Current Visit: Yes Status: Chronic Assessment and Plan: Hx of Pacemaker placement. Monitor. (8) Tobacco dependence Current Visit: Yes Status: Chronic Assessment and Plan: Hx of chronic tobacco abuse. Patient reports smoking 1 PPD. Denies current need for nicotine patch. Patient counseled on cessation. (9) HTN (hypertension) Current Visit: Yes Status: Chronic Assessment and Plan: Hx of chronic HTN. Monitor pt. and VS. Will continue pts. HTN medications and approach cautiously d/t current hypotension. Monitor. (10) DVT prophylaxis Current Visit: Yes Status: Acute Assessment and Plan: Bilateral SCDs on LEs for DVT prophylaxis. (11) Tobacco abuse counseling Current Visit: Yes Status: Acute Assessment and Plan: Patient counseled >10 minutes on the dangers of continued tobacco abuse and the benefits of cessation, especially regarding his CAD and Afib hx. - Time Spent with Patient Total time spent is greater than 50% in coordination of care (as documented) at patient's floor/unit and/or counseling patient: Internal Medicine: Result - Labs CBC & Chem 7: 01/07/19 02:00 01/07/19 02:00 Labs: Short CBC 01/07/19 Range/Units 02:00 WBC 17.9 H (4.3-11.1) K/mcL Hgb 11.4 L (12.9-16.9) g/dL Hct 35.4 L (37.5-50.1) % Plt Count 178 (140-400) K/mcL Neutrophils # 14.9 H (1.6-8.9) K/mcL BMP 01/07/19 02:00 Sodium 135 L Potassium 4.8 Chloride 100 Carbon Dioxide 25 BUN 27 H Creatinine 1.51 H Glucose 163 H Calcium 9.2 - Impressions Impressions Chest CT 01/06/19 15:40 IMPRESSION: Small bilateral pleural effusions with bilateral dependent lower lobe consolidation, likely passive atelectasis, new since 01/03/2019. Scattered noncalcified pulmonary nodules throughout both lungs most compatible with metastatic disease, new since 2013, measuring up to 1.1 cm. Focal area of ill-defined increased attenuation within the lateral right upper lobe, increased in extent and density since the prior study, worrisome for neoplasm to adenocarcinoma. D/ / Samantha Dempsey Cha, MD / Samantha Dempsey Cha, MD Interpreting Provider: Samantha Dempsey Cha, MD Consult Discharge Plan - Plan Instructions: Minimally Invasive Total Hip Replacement (DC), Precautions after Total Joint Replacement Surgery (DC), Joint Replacement Surgery (DC) Referrals: Ratna Arambula, [employer] [Primary Care Provider] - (4) COPD (chronic obstructive pulmonary disease) Qualifiers: COPD type: unspecified COPD Qualified Code(s): J44.9 - Chronic obstructive pulmonary disease, unspecified (5) CAD (coronary artery disease) Qualifiers: Coronary Disease-Associated Artery/Lesion type: unspecified vessel or lesion type [place] vs. transplanted heart: [place] heart Associated angina: angina presence unspecified Qualified Code(s): I25.10 - Atherosclerotic heart disease of [place] coronary artery without angina pectoris (6) Diabetes mellitus Qualifiers: Diabetes mellitus type: type 2 Diabetes mellitus long wall shear operator insulin use: without long wall shear operator use Diabetes mellitus complication status: without complication Qualified Code(s): E11.9 - Type 2 diabetes mellitus without complications (9) HTN (hypertension) Qualifiers: Hypertension type: essential hypertension Qualified Code(s): I10 - Essential (primary) hypertension
[2019-01-07] MEDS: Ringers Solution, Lactated 1,000 ML IVC SCH (16:16)
[2019-01-07] MEDS ORDERED: *HR* Metoprolol 5 MG/5 ML VIAL IVP ONE (18:47)
[2019-01-07] MEDS ORDERED: Metoprolol XL (24 HR) Succ 50 MG TAB.ER.24H PO SCH (21:00)
[2019-01-08] MEDS: Ringers Solution, Lactated 1,000 ML IVC SCH (06:14)
[2019-01-08] MEDS: Insulin LISPRO 300 UNITS/3 ML VIAL SQ SCH ×2 (07:42→12:08)
[2019-01-08] MEDS: Aspirin Enteric Coated 81 MG Tablet PO SCH (07:42)
[2019-01-08] MEDS: Ascorbic Acid 500 MG TABLET PO SCH (07:42)
[2019-01-08] MEDS: Metoprolol XL (24 HR) Succ 50 MG TAB.ER.24H PO SCH (07:42)
[2019-01-08] MEDS: *HR* GlipiZIDE XL (24 HR) 10 MG TABLET PO SCH (07:42)
[2019-01-08] MEDS: *HR* Dabigatran 150 MG CAPSULE PO SCH (07:42)
[2019-01-08] MEDS: Multivit/Ca/Min/Fe/FA 1 TAB TABLET PO SCH (07:42)
--- NOTE | 2019-01-08 08:11 | Internal Med Progress Note ---
Hospitalist Progress Note - Encounter Date of Encounter: 01/08/19 Time of Encounter: 09:00 - Subjective Interval History: No acute events overnight - Exam Vitals: Temp Pulse Resp BP Pulse Ox 97.7 F 113 19 115/71 93 01/08/19 07:13 01/08/19 07:13 01/08/19 07:13 01/08/19 07:13 01/08/19 07:13 Exam: General appearance: Present: A&O X 3, no acute distress Head exam: Present: normocephalic Respiratory exam: Present: CTAB. Absent: accessory muscle use, rales, rhonchi, wheezes Cardiovascular exam: Irregularly irregular GI/Abdominal exam: Soft, NT, ND, +BS Extremities exam: Absent: pedal edema Neurological exam: Present: alert, oriented X3, no focal deficits. Absent: altered - Assessment and Plan (1) Atrial fibrillation with RVR Current Visit: Yes Status: Acute Assessment and Plan: Patient went into afib with RVR post surgery and was started on a cardizem drip Was successfully weaned to po cardizem and beta blockers yesterday but reportedly was in RVR this am Back on oral rate control meds. Inreased beta jorge luis dosing to 100mg BID and switched am metoprolol from tartrate to succinate Will loan counselor follow up with gyroscope repairer in a week. Okay for discharge today (2) Renal mass Current Visit: Yes Status: Acute Assessment and Plan: Renal mass and right hip mass discovered incidentally. Oncology consulted and will follow up outpatient CT chest and bone scan done for screening Increased activity noted at greater trochanter on bone scan may represent metastases (3) Status post right hip replacement Current Visit: Yes Status: Acute Assessment and Plan: Acute status post-right hip replacement on 01/05/19. Prior to surgery, it was discovered that the pt. 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 Patient reports no pain post-procedure and is resting comfortably. Stair-step pain medications ordered for pain mgmt. PT/OT consults ordered for rehabilitation needs. Pt. to be followed by Ortho. Patient is high risk for complications and further morbidity d/t discovered metastatic cancer to right f emorial neck, new discovery of renal mass and concern for further metastases, advanced age; and risk factors and co-morbidities. Inpatient. (4) COPD (chronic obstructive pulmonary disease) Current Visit: Yes Status: Chronic Assessment and Plan: Hx of chronic COPD. Supplemental O2 w/titration and SpO2 monitoring. Continue pts. home dose Nebs. (5) CAD (coronary artery disease) Current Visit: Yes Status: Chronic Assessment and Plan: Hx of CAD. Pacemaker. Continuous cardiac telemetry. Will continue pts. HTN medications. (6) Diabetes mellitus Current Visit: Yes Status: Chronic Assessment and Plan: Hx of chronic diabetes controlled by oral anti-hyperglycemic medication. Glipizide has been continued. BG checks ACHS. Medium dose correction sliding scale insulin at bedtime and high dose correction sliding scale insulin TIDWM. A1c in a.m. labs. (7) Pacemaker Current Visit: Yes Status: Chronic (8) Tobacco dependence Current Visit: Yes Status: Chronic (9) HTN (hypertension) Current Visit: Yes Status: Chronic Assessment and Plan: Hx of chronic HTN. Monitor pt. and VS. Will continue pts. HTN medications and approach cautiously d/t current hypotension. Monitor. (10) DVT prophylaxis Current Visit: Yes Status: Acute Assessment and Plan: Bilateral SCDs on LEs for DVT prophylaxis. (11) Tobacco abuse counseling Current Visit: Yes Status: Acute Assessment and Plan: Patient counseled >10 minutes on the dangers of continued tobacco abuse and the benefits of cessation, especially regarding his CAD and Afib hx. - Time Spent with Patient Total time spent is greater than 50% in coordination of care (as documented) at patient's floor/unit and/or counseling patient: Internal Medicine: Result - Labs CBC & Chem 7: 01/07/19 02:00 01/07/19 02:00 - Impressions Impressions Bone Scan Nuclear Medicine 01/07/19 06:00 IMPRESSION: Focal activity at the right greater trochanter can be in keeping with recent postoperative change. Residual metastasis at the site cannot be excluded given patient history of femoral mass. Left hydronephrosis. Multifocal degenerative changes are otherwise favored as outlined above. D/ / Efrain Woody MD / Efrain Woody MD Interpreting Provider: Efrain Woody MD Consult Discharge Plan - Plan Instructions: Minimally Invasive Total Hip Replacement (DC), Precautions after Total Joint Replacement Surgery (DC), Joint Replacement Surgery (DC) Referrals: Ratna Arambula, RAW MATERIAL HANDLER [Primary Care Provider] - Prescriptions: Metoprolol Succinate 100 mg PO HS 30 Days #30 tab.er.24h Metoprolol XL (24 HR) Succ [Toprol Xl] 100 mg PO DAILY #30 tab.er.24h (4) COPD (chronic obstructive pulmonary disease) Qualifiers: COPD type: unspecified COPD Qualified Code(s): J44.9 - Chronic obstructive p ulmonary disease, unspecified (5) CAD (coronary artery disease) Qualifiers: Coronary Disease-Associated Artery/Lesion type: unspecified vessel or lesion type [place] vs. transplanted heart: [place] heart Associated angina: angina presence unspecified Qualified Code(s): I25.10 - Atherosclerotic heart disease of [place] coronary artery without angina pectoris (6) Diabetes mellitus Qualifiers: Diabetes mellitus type: type 2 Diabetes mellitus [facility] insulin use: without [facility] use Diabetes mellitus complication status: without complication Qualified Code(s): E11.9 - Type 2 diabetes mellitus without complications (9) HTN (hypertension) Qualifiers: Hypertension type: essential hypertension Qualified Code(s): I10 - Essential (primary) hypertension
--- NOTE | 2019-01-08 08:41 | Oncology Inp Progress Note ---
Date of Encounter: 01/08/19 Time of Encounter: 08:40 (1) Renal mass Current Visit: Yes Status: Acute Assessment and plan: Patient with impending pathologic right hip fracture status post right CECI. Imaging revealed left renal mass. Multiple noncalcified pulmonary nodules concerning for metastatic disease. Bone scan without other foci of disease. Clinically is consistent with metastatic renal cell carcinoma. A primary lung malignancy cannot be completely excluded but is less likely. Pathology is currently pending. I have established care with the patient and my office this coming week to review pathology discuss further management. No new recommendations from my perspective. May discharge home when cleared by the primary team. I have discontinued MVI, iron, vitamin C per patient wishes. (2) Status post right hip replacement Current Visit: Yes Status: Acute Assessment and plan: Status post right CECI. Recovery delayed by atrial fibrillation currently managed by the hospitalist. Clinically improving. Oncology: Subj Interval history: Very angry this morning. "Why am I still here?" "I am taking too many pills." Atrial fibrillation remains problematic and patient wishes for d/c. Hip pain is controlled. No fever, chills or symptoms of infection. No N/V. Reviewed scan results with the patient. - Constitutional General appearance: cooperative, no acute distress - Head Head exam: Present: atraumatic, normal inspection, normocephalic - Eye Eye exam: Present: normal appearance, conjuntiva pink, sclera anicteric - ENT ENT exam: Present: mucous membranes moist, normal exam, normal oropharynx - Neck Neck exam: Present: full ROM, normal inspection - Respiratory Respiratory exam: Present: decreased breath sounds, CTAB - Cardiovascular Cardiovascular exam: Present: irregular rhythm, tachycardia - GI/Abdominal GI/Abdominal exam: Present: normal bowel sounds, soft - Extremities Exam Extremities exam: Present: normal inspection - Neurological Exam Neurological exam: Present: alert, CN II-XII intact, no focal deficits Oncology: Obj Data - Labs CBC & Chem 7: 01/07/19 02:00 01/07/19 02:00 - Imaging and cardiology CT scan - chest Status: image reviewed by me Additional comments: CT OF THE CHEST WITHOUT CONTRAST 01/06/2019 5:03 pm FINDINGS: Mediastinum: No mediastinal adenopathy. Coronary arterial and aortic calcifications are present. A left subclavian cardiac device is noted. Lungs/pleura: The central airways are patent. Upper lung predominant centrilobular and paraseptal emphysema is seen. There small bilateral pleural effusions, greater on the with associated dependent lower lobe consolidation, likely passive atelectasis. There are scattered bilateral noncalcified pulmonary nodules which are new since the prior study, most compatible with metastatic disease, measuring up to 1.1 cm in the superior segment left lower lobe. Additionally, there is focal irregular area density within the lateral right upper lobe which is increased in extent and density since the prior study measuring roughly up to 3.1 x 1.3 cm, previously 2.1 x 1.4 cm. Upper Abdomen: Noncontrast images of the upper abdomen show no acute abnormality. Soft Tissues/Bones: No acute or focal suspicious bony abnormality is identified. CT/CT chest wo con IMPRESSION: Small bilateral pleural effusions with bilateral dependent lower lobe consolidation, likely passive atelectasis, new since 01/03/2019. Scattered noncalcified pulmonary nodules throughout both lungs most compatible with metastatic disease, new since 2013, measuring up to 1.1 cm. Focal area of ill-defined increased attenuation within the lateral right upper lobe, increased in extent and density since the prior study, worrisome for neoplasm to adenocarcinoma. Other Images Status: image reviewed by me Additional comments: WHOLE BODY BONE SCAN 01/07/2019 Mild diffuse activity within the spine, focal to the right of midline within the cervical spine, typically degenerative. Photopenia related to right hip arthroplasty. Focal increased activity is seen at the right greater trochanter. By report, patient has had recent placement of the hardware. Linear photopenia within the sternum, compatible with history of sternotomy. Mild activity at bilateral shoulders, sternoclavicular joints, hips, left wrist, knees, ankles, feet, likely degenerative. Left hydronephrosis. Physiologic activity is seen within the bladder. NM/NM bone scan whole body IMPRESSION: Focal activity at the right greater trochanter can be in keeping with recent postoperative change. Residual metastasis at the site cannot be excluded given patient history of femoral mass. Left hydronephrosis. Multifocal degenerative changes are otherwise favored as outlined above. Consult Discharge Plan - Plan Instructions: Minimally Invasive Total Hip Replacement (DC), Precautions after Total Joint Replacement Surgery (DC), Joint Replacement Surgery (DC) Referrals: Ratna Arambula, TITLE I DIRECTOR [Primary Care Provider] - Inpatient Charges Provider: Dr. Toro Marks Follow up - Inpatient: [id number]
[2019-01-08] MEDS ORDERED: Diltiazem CD (24hr) 240 MG CAPSULE PO SCH (09:00)
[2019-01-08] MEDS: HYDROcodone BIT/Homatropine 5 MG TABLET PO PRN (09:44)
[2019-01-08 10:30] VITALS: BP 125/64
[2019-01-09 14:35] LABS: Alpha 2 Globulin (PEP) 0.71 g/dL (0.48-1.05); Beta Globulin (PEP) 0.81 g/dL (0.48-1.10)
[2019-01-09 14:46] LABS: IFE Reflexed NOT DONE
[2019-01-09 15:50] LABS: Kappa Qnt Free Light Chains 2.9 mg/dL (0.33-1.94); Lambda Qnt Free Light Chains 2.21 mg/dL (0.57-2.63)
--- NOTE | 2019-01-11 13:08 | Electrocardiograph Report ---
[address] [place] [id number] Test Date: 2019-01-06 Pat Name: Dimas Parker Department: 114 Room: [facility] Gender: Cardiology Physician: : [id number] Requested By: Dax Loaiza Order Number: [id number] Reading MD: Johnny Kuhn Measurements Intervals [place] Rate: 116 P: MO: 0 QRS: 37 QRSD: 102 T: 263 QT: 326 QTc: 395 Interpretive Statements ATRIAL FIBRILLATION WITH RAPID VENTRICULAR RESPONSE INFERIOR MYOCARDIAL INFARCTION, OF INDETERMINATE AGE WITH POSTERIOR EXTENSION LATERAL ISCHEMIA Electronically Signed On 01-11-2019 13:07:07 EDT by Johnny Kuhn
== END 2019-01-08 17:40 | disposition home health service (06) | DRG 470 ==
LOC: SAMDAY 12:33 → 3NENU 18:24
PROVIDERS: ADMIT Orthopaedic Surgery; ATTEND Orthopaedic Surgery

== ENCOUNTER 2019-01-12 09:48 | Inpatient (IN) ==
[2019-01-12] MEDS ORDERED: *HR* LORazepam 2 MG/ML VIAL IVP ONE (11:56)
[2019-01-12] MEDS ORDERED: Levalbuterol Neb 0.63 MG/3 ML ONE (11:57)
[2019-01-12 12:04] LABS: ABG Base Excess 0 mEq/L (-2 to 3); ABG HCO3 26 mEq/L (21-27); ABG Oxygen Saturation 94 % (95-98); ABG PCO2 50 mmHg (35-45); ABG PH 7.33 pH Units (7.32-7.45); ABG PO2 76 mmHg (85-104); ABG TCO2 28 mEq/L (20-26)
[2019-01-12] MEDS ORDERED: Naloxone 0.4 MG/ML INJ IVP PRN (12:16)
[2019-01-12] MEDS ORDERED: Ondansetron 4 MG/2 ML VIAL IVP PRN (12:16)
--- NOTE | 2019-01-12 12:28 | Internal Med History&Physical ---
Date of Encounter: 01/12/19 Time of Encounter: 11:45 Internal Medicine - H&P: HPI Chief complaint: shortness of breath Admitted From: Intrahospital Transfer Plans for Post Hospital Care: Home History of present illness: Mr. Parker is a 78 year old male HTN, DM, Atrial fibrillation on Pradaxa, Pacemaker, CAD, COPD on home O2 1.5L continuous, tobacco abuse, PVD, RA, 01/05/19 right total hip repair for lytic lesion from left renal cell carcinoma, with mets to bone and multiple lung nodules presumed mets but cannot rule out underlying lung primary with path pending. He was discharged to home 01/08/19. He is a transfer from [facility]. He presented there today with sudden increased sob that began 01/11 evening. Pt is is notable respiratory distress and history is obtained from his and daughter whom is a nurse at that bedside. He started with rather sudden sob last night after dinner. He tried using home xopenex nebs and increased home o2 up to 2.5 L without effect. He has had non productive cough. They deny he has had wheezing, fevers or chills. Deny orthopnea, however note that he has had difficulty getting a position of comfort and when he can he is sitting upright. He has had no complaint of cp, pressure, palpitations, arm/jaw pain. He cannot tell when is is in afib, hr currently 140s on tele and his main sx is sob and labored breathing. He admits to bipap mask making him very anxious and not tolerating well. daughter at bedside notes he received 0.5 mg IV ativan with good effect at [place] which helped him to tolerate bipap. ROS and HPI limited by resp distress with conversation Per verbal [place] report upon acceptance in transfer: Pt presented dyspneic, diaphroetic, failed home nebs and increasing o2 nc. Given he just had hip sx there was concern for PE and cTA preformed was NEGATIVE for PE, showed prior lung nodules, and a questionable ground glass opacity. His afib rvr had improved rate into the 90s-100s with cardizem bolus and then initiation of gtt. Pt was on and off of bipap due to his anxiety/panic with it in place. [place] attending was not present when he first arrived and does not see hypoxia documented though noted when he was on 2.5L NC he was satting 88-90%. He received solu medrol, ativan, his home pain med and xopenex nebs with some improvement. At time of transfer he was reported to be tolerating bipap with o2 sat 98-100% and HR in 90-110s, BP 118/97. Labs there included wbc 14.5, hgb 11, trop[ 0.03, na 135, K 5.1, bun 17, creat 1.04, abg ph 7.35, pco2 53. 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 Daughter noting that he had good effect with low dose IV ativan and was able to tolerate the bipap mask at [facility]. One time dose ordered stat labs sent Family notes he was due to see Dr Marks and Dr Carr today Family confirmed no med changes since discharge from [facility] 01/08 ros as above and otherwise limited by pt resp distress with conversation Past Med Surg Social Fam HX - Past Medical History Medical history: cancer (renal and mets to bone and lung), CHF (no echo on file), COPD, coronary artery disease, diabetes, hypertension Additional medical history: Pacemaker. PVD. Irregular Heart Beat. CVD. Rheumatiod Arthritis. Cataracts. Home O2 at 1.5L/Min PRN. Heart Attack. Right Hip Lytic Lesion Femoral Neck Psychiatric history: no psych history - Past Surgical History Surgical History: cancer surgery, cataract, hip replacement (01/05/19) Additional surgical history: Stent to Kidney. Left Carotid Artery. Open Heart Sx - Social History Smoking Status: Current every day smoker Smokeless Tobacco Status: No Alcohol use: occasionally Drug use: none Current living situation: With Family - Family History Father Family Member Ethnicity: Non- Living Status: Hx Family Cardiac Disorders: Yes (CVA) Hx Family Cancer: Yes (Type unknown) Hx Family Neurologic Disorders: Yes (CVA) Mother Family Member Ethnicity: Non- Living Status: Brother Family Member Ethnicity: Non- Living Status: Hx Family Cardiac Disorders: Yes (CAD) Hx Family Cancer: Yes (Type unknown) Sister Family Member Ethnicity: Non- Living Status: Hx Family Cancer: Yes (Type unknown) Internal Medicine - H&P: Meds Aspirin [Adult Aspirin] 81 mg PO DAILY 01/05/19 [History] Dabigatran Etexilate Mesylate [Pradaxa] 150 mg PO BID 01/05/19 [History] Diltiazem CD (24hr) [Cardizem CD] 240 mg PO DAILY 01/05/19 [History] Docusate [Colace] 100 mg PO BID 5 Days #10 capsule 01/05/19 [Rx] Docusate [Colace] 100 mg PO QPM PRN 01/05/19 [History] GlipiZIDE XL (24 HR) [Glucotrol XL] 10 mg PO DAILY 01/05/19 [History] Ipratropium Neb [Atrovent Neb] 0.5 mg IH Q6HR PRN 01/05/19 [History] Levalbuterol Neb [Xopenex Neb] 1.25 mg IH Q8H PRN 01/05/19 [History] Losartan Potassium 100 mg PO DAILY 01/05/19 [History] OxyCODONE Immed Rel [Roxicodone 5 MG] 5 mg PO Q6HR PRN 5 Days #20 tablet 01/05/19 [Rx] OxyCODONE Immed Rel [Roxicodone 5 MG] 5 mg PO Q6HR PRN 5 Days #20 tablet 01/05/19 [Rx] Metoprolol Succinate 100 mg PO HS 30 Days #30 tab.er.24h 01/08/19 [Rx] Metoprolol XL (24 HR) Succ [Toprol Xl] 100 mg PO DAILY #30 tab.er.24h 01/08/19 [Rx] Allergy/AdvReac Type Severity Reaction Status Date / Time albuterol Allergy See Verified 01/05/19 13:07 Comments heparin Allergy See Verified 01/05/19 13:22 Comments ROS unobtainable: other (ros as above and otherwise limited by pt resp distress with conversation) All Systems PM: pertinent findings except as documented above in the HPI. - Constitutional Vitals: Temp Pulse Resp BP Pulse Ox 97.9 F 130 31 123/79 94 01/12/19 11:41 01/12/19 11:41 01/12/19 12:11 01/12/19 11:41 01/12/19 12:11 Exam: General: awake, alert, resp distress HEENT:EOM intact, pupils equal, round Neck: supple, trachea midline Cardiovascular:tachy rate and irreg/irreg rhythm, normal S1 & S2, No JVD. radial pulses 2+, trace pitting lower extremity edema Lungs: very diminished air movement throughout, no wheezing or crackles, tripod position w accessory muscle use on oxymask 6L Abdomen:Soft, non-tender, distended, no rigidity Extremities:No deformity, no edema or tenderness Neurological: AAOx3, CN grossly intact Skin:Normal color, no rash, no pallor, no jaundice Internal Med - H&P Results - Labs CBC & Chem 7: 01/12/19 12:21 01/12/19 12:21 - ABG Interpretation ABG results: 01/12/19 11:52 ABG pH 7.33 ABG pCO2 50 H ABG pO2 76 L ABG HCO3 26 ABG Total CO2 28 H ABG O2 Saturation 94 L ABG Base Excess 0 - Assessment and Plan (1) Acute and chronic respiratory failure with hypoxia Current Visit: Yes Status: Acute (2) Atrial fibrillation with RVR Current Visit: Yes Status: Acute (3) History of right hip hemiarthroplasty Current Visit: Yes Status: Chronic (4) Hyperkalemia Current Visit: Yes Status: Acute (5) COPD exacerbation Current Visit: Yes Status: Acute (6) Constipation Current Visit: Yes Status: Acute Qualifiers: Constipation type: drug induced constipation Qualified Code(s): K59.03 - Drug induced constipation (7) Metastatic renal cell carcinoma to bone Current Visit: Yes Status: Chronic (8) Renal cell carcinoma of left kidney Current Visit: Yes Status: Chronic - Summary of Assessment and Plan Summary of Assessment and Plan: Acute on Chronic Hypoxic Resp Failure Home o2 is 1.5L NC, currently on continuous Bipap Suspected COPDE + Afib RVR as etiology CTA at OSH ruled out PE, questionable new lung opacity noted, prior lung nodules concerning for lungs mets vs underlying primary noted as well CXR without effusion -appreciate pulm input -cont bipap today/overnight and will likely trial off it in am- he required low dose ativan 0.5 mg IV to tolerate bipap due to anxiety, this med makes him somnolent but arousable and tolerating bipap without incidence currently -cont IV steroids, scheduled and prn nebs, Azithro -Afib tx as below -check procal, legionella/strep and sputum cx -low dose one time lasix Afib with RVR, uncontrolled Arrived in Afib rvr with HR 140s, previously controlled at OSH on cardizem gtt -cardizem gtt resumed and weaning down -cont pradaxa -hold home BB and cardizem at this time, given resp status will stabilize with cardizem gtt overnight and attempt transition off once able to not be on continuous bipap as his resp distress significantly worsens his rate as expected -check echo -trop trend is negative and EKG without acute ischemic changes when compared to priors as noted in HPI -monitor lytes Hyperkalemia, mild without EKG changes -ca gluconate and RC kayexalate given -repeat level this evening Constipation, opiate induced KUB without ileus/osbtruction + constipation -cont home colace, kayexlate was given this afternoon, will give rectal suppository tonight at HS -further regimen pending results by am Metastatic suspected renal cell carcinoma with bone and presumed lung mets though underlying lung primary cannot be excluded -oncology has been consulted as family would like to further discuss prognosis and pt was due to see Dr Marks team s/p R total hip 01/05 for lytic lesion -Dr Carr team following and checking US LE for leg pain -I d/w Dr Carr and ok to resume home pradaxa vte ppx pradaxa full code as d/w pt and family
[2019-01-12] MEDS ORDERED: Levalbuterol Neb 1.25 MG/3 ML IH SCH (12:30)
[2019-01-12] MEDS ORDERED: Ipratropium Neb 0.5 MG NEBULIZER IH PRN (12:32)
[2019-01-12 12:42] LABS: Basophils # 0.1 K/mcL (0.0-0.2); Basophils % 0.4 %; Eosinophils # 0.4 K/mcL (0.0-0.6); Eosinophils % 2.5 %; Hemoglobin 11.2 g/dL (12.9-16.9); Immature Granulocytes % 1.1 % (0-4); Lymphocytes # 0.4 K/mcL (0.6-4.6); Lymphocytes % 2.3 %; Mean Corpuscular Hemoglobin 30.2 pg (28.0-33.3); Mean Corpuscular Volume 94.3 fL (83.0-100.0); Monocytes # 0.3 K/mcL (0.0-1.3); Monocytes % 1.8 %; Neutrophils # 14.1 K/mcL (1.6-8.9); Platelet Count 237 K/mcL (140-400); Red Blood Count 3.71 M/mcL (4.19-5.50); Red Cell Distribution Width 13.5 % (11.5-14.5); Segmented Neutrophils % 91.9 %; White Blood Count 15.4 K/mcL (4.3-11.1)
[2019-01-12] MEDS ORDERED: D5% in Water 1,000 ML IVC PRN (12:45)
[2019-01-12] MEDS ORDERED: *HR* Dextrose 50 % in Water (Syg) 50 ML SYRINGE IVP PRN (12:45)
[2019-01-12] MEDS ORDERED: Dextrose Gel 15 GM/37.5 ML TUBE PO PRN ×2 (12:45)
[2019-01-12 12:53] LABS: BUN/Creatinine Ratio 17 (6-26); Blood Urea Nitrogen 18 mg/dL (8-23); Calcium 8.9 mg/dL (8.6-10.3); Carbon Dioxide 24 mEq/L (23-29); Chloride 101 mEq/L (98-107); Glucose 206 mg/dL (70-105); Magnesium 2.3 mg/dL (1.6-2.6); Osmolality,Calculated 284 (280-300); Potassium 5.2 mEq/L (3.5-5.1); Sodium 133 mEq/L (136-145); eGFR For African Americans > 60 (> 60); eGFR For Non-African Americans > 60 (> 60)
--- NOTE | 2019-01-12 12:59 | Pulmonology Consult Note ---
Date of Encounter: 01/12/19 Time of Encounter: 12:55 Assessment and Plan (1) Acute and chronic respiratory failure Current Visit: Yes Status: Acute Hypoxia appears to be multifactorial in etiology. He has poor underlying pulmonary reserve secondary to COPD and likely metastatic disease to the lung. No chest imaging available for my review, but I suspect there is a degree of heart failure from rapid A. fib. COPD exacerbation may also be contributing. Low FRC related to abdominal bloating may be contributing as well. He is not a good candidate for intubation in my opinion given his advanced lung disease and likely poor prognosis related to metastatic renal cell carcinoma. We will continue to trial BiPAP and attempts to avoid intubation. I would leave him on BiPAP all night and give him a break tomorrow morning 01/13/2019. Qualifiers: Respiratory failure complication: hypoxia and hypercapnia Qualified Code(s): J96.21 - Acute and chronic respiratory failure with hypoxia; J96.22 - Acute and chronic respiratory failure with hypercapnia (2) COPD with acute exacerbation Current Visit: Yes Status: Acute Agree with steroids and scheduled bronchodilators. I have added a 5 day course of azithromycin to treat an acute exacerbation of COPD. (3) Abdominal distention Current Visit: Yes Status: Acute He has recently been started on opioids and has been rather constipated with abdominal bloating. I will check a KUB to evaluate for an ileus. This could be contributing to his respiratory issues, therefore we should aggressively treat with a bowel regimen. (4) Atrial fibrillation with RVR Current Visit: No Status: Acute Management per primary service. Plan is for the initiation of a diltiazem drip to assist with improved rate control. Patient may also benefit from diuresis if his workup is indicative of acute diastolic congestive heart failure. Comment: Pulmonary team will continue to follow. Overall prognosis guarded. Palliative care consultation would be reasonable. History of Present Illness Consult date: 01/12/19 Requesting physician: Fatuma Eason Reason for consult: other (Respiratory failure) Chief complaint: Respiratory failure History of present illness: Of note, the patient has received some Ativan and he is rather sleepy. Furthermore, he is dependent on BiPAP. Overall unable to fully participate in history or review of systems. Information was obtained from the medical record and in discussion with hospital staff. Also discussed with family at bedside. The patient was recently discharged from the hospital. He had a pathologic hip fracture related to a metastatic tumor that was found. The patient was discharged to a rehabilitation facility, and he had his first session of physical therapy. He developed fairly severe dyspnea during the session, and he never fully recovered. His shortness of breath became progressive, and he was transferred from the nursing facility to a local hospital. Workup at the outside facility revealed abnormal chest imaging and A. fib with RVR. He was transferred from the local hospital to [facility]. Past Med Surg Social Fam HX - Past Medical History Medical history: cancer, CHF, COPD, coronary artery disease, diabetes, hy pertension Additional medical history: Pacemaker. PVD. Irregular Heart Beat. CVD. Rheumatiod Arthritis. Cataracts. Home O2 at 1.5L/Min PRN. Heart Attack. Right Hip Lytic Lesion Femoral Neck Psychiatric history: no psych history - Past Surgical History Surgical History: cancer surgery, cataract Additional surgical history: Stent to Kidney. Left Carotid Artery. Open Heart Sx - Social History Smoking Status: Current every day smoker Smokeless Tobacco Status: No Alcohol use: occasionally Drug use: none - Family History Father Family Member Ethnicity: Non- Living Status: Hx Family Cardiac Disorders: Yes (CVA) Hx Family Cancer: Yes (Type unknown) Hx Family Neurologic Disorders: Yes (CVA) Mother Family Member Ethnicity: Non- Living Status: Brother Family Member Ethnicity: Non- Living Status: Hx Family Cardiac Disorders: Yes (CAD) Hx Family Cancer: Yes (Type unknown) Sister Family Member Ethnicity: Non- Living Status: Hx Family Cancer: Yes (Type unknown) Medications and Allergies Aspirin [Adult Aspirin] 81 mg PO DAILY 01/05/19 [History] Dabigatran Etexilate Mesylate [Pradaxa] 150 mg PO BID 01/05/19 [History] Diltiazem CD (24hr) [Cardizem CD] 240 mg PO DAILY 01/05/19 [History] Docusate [Colace] 100 mg PO BID 5 Days #10 capsule 01/05/19 [Rx] Docusate [Colace] 100 mg PO QPM PRN 01/05/19 [History] GlipiZIDE XL (24 HR) [Glucotrol XL] 10 mg PO DAILY 01/05/19 [History] Ipratropium Neb [Atrovent Neb] 0.5 mg IH Q6HR PRN 01/05/19 [History] Levalbuterol Neb [Xopenex Neb] 1.25 mg IH Q8H PRN 01/05/19 [History] Losartan Potassium 100 mg PO DAILY 01/05/19 [History] OxyCODONE Immed Rel [Roxicodone 5 MG] 5 mg PO Q6HR PRN 5 Days #20 tablet 01/05/19 [Rx] OxyCODONE Immed Rel [Roxicodone 5 MG] 5 mg PO Q6HR PRN 5 Days #20 tablet 01/05/19 [Rx] Metoprolol Succinate 100 mg PO HS 30 Days #30 tab.er.24h 01/08/19 [Rx] Metoprolol XL (24 HR) Succ [Toprol Xl] 100 mg PO DAILY #30 tab.er.24h 01/08/19 [Rx] Allergy/AdvReac Type Severity Reaction Status Date / Time albuterol Allergy See Verified 01/05/19 13:07 Comments heparin Allergy See Verified 01/05/19 13:22 Comments ROS unobtainable: due to mental status, other (BiPAP dependence) Physical Examination Vital Signs: Vital Signs, Last 4 Hours Temp Pulse Resp BP Pulse Ox 01/12/19 12:44 110 25 122/68 96 01/12/19 12:11 31 94 01/12/19 11:41 97.9 F 130 16 123/79 96 General appearance: other (Ill-appearing with moderate work of breathing at rest, BiPAP dependent) Eyes: nonicteric ENT: oropharynx dry, other (BiPAP mask in place.) Neck: supple, no lymphadenopathy Effort: mildly labored Auscultation: bilateral: diminished breath sounds Cardiovascular: irregular rhythm Gastrointestinal: non-tender, other (Soft but distended) Integumentary: normal Extremities: no cyanosis, edema non-focal exam (But the patient is rather sleepy after receiving Ativan) Results - Laboratory Findings CBC and BMP: 01/12/19 12:21 01/12/19 12:21 ABG ABG pH 7.33 pH Units (7.32-7.45) 01/12/19 11:52 ABG pCO2 50 mmHg (35-45) H 01/12/19 11:52 ABG pO2 76 mmHg (85-104) L 01/12/19 11:52 ABG O2 Saturation 94 % (95-98) L 01/12/19 11:52 Abnormal lab findings: Abnormal lab results WBC 15.4 K/mcL (4.3-11.1) H 01/12/19 12:21 RBC 3.71 M/mcL (4.19-5.50) L 01/12/19 12:21 Hgb 11.2 g/dL (12.9-16.9) L 01/12/19 12:21 Hct 35.0 % (37.5-50.1) L 01/12/19 12:21 Neutrophils # 14.1 K/mcL (1.6-8.9) H 01/12/19 12:21 Lymphocytes # 0.4 K/mcL (0.6-4.6) L 01/12/19 12:21 ABG pCO2 50 mmHg (35-45) H 01/12/19 11:52 ABG pO2 76 mmHg (85-104) L 01/12/19 11:52 ABG Total CO2 28 mEq/L (20-26) H 01/12/19 11:52 ABG O2 Saturation 94 % (95-98) L 01/12/19 11:52 Sodium 133 mEq/L (136-145) L 01/12/19 12:21 Potassium 5.2 mEq/L (3.5-5.1) H 01/12/19 12:21 Glucose 206 mg/dL (70-105) H 01/12/19 12:21 - Clinical Findings Intake & Output: Intake & Output 01/11/19 01/12/19 01/12/19 23:59 07:59 15:59 Intake Total 0 / 0 Output Total 250 / 250 Balance -250 / -250 Weight 82.5 kg Consult Discharge Plan - Plan Referrals: Ratna Arambula, SANDER OPERATOR [Primary Care Provider] -
[2019-01-12] MEDS: MethylPREDNISolone 40 MG/ML VIAL IVP SCH ×2 (13:00→16:23)
[2019-01-12] MEDS ORDERED: Calcium Gluconate 1gm/50mL 1 GM/50 ML BAG IVPB ONE (13:03)
--- NOTE | 2019-01-12 13:18 | Orthopedics Progress Note ---
Date of Encounter: 01/12/19 Time of Encounter: 12:30 - Assessment and Plan (1) Status post right hip replacement Current Visit: Yes Status: Acute Subjective Principal diagnosis: s/p right total hip Interval history: Mr. Parker was admitted to [facility] respiratory compromise. He is postop day #7 status post right total hip replacement performed on 01/[address] Carr. Patient was found to have an abnormal x-ray and was referred to Dr. Allen with [facility]. He was seen by Dr. Allen on 01/03/19. On that same day, he had CT of the right hip, CT abdomen and pelvis and a nuclear medicine whole body bone scan. These revealed lytic mass to the right hip with concerns for metastatic disease. Patient had a consultation with Dr. Carr orthopedic surgeon on 01/03/19 as well and was recommended for right total hip replacement with plans for the bone mass to be sent for pathology testing. Patient found on pathology testing to have renal cell carcinoma on bone pathology. Patient's spouse and daughter at beside. On exam, patient noted to be on Bipap. Patient is somnolent and is difficult to arouse. Patient's spouse is able to awaken for short periods to cooperate with exam commands. Patient is able to follow commands. Right hip incision has dressing with yellow serous drainage noted to be nearly saturating honeycomb dressing. Sensor incision c/d/i. 1+ pitting edema with scattered ecchymosis noted surrounding surgical sites. Scattered ecchymosis noted to the RLE. LLE is unremarkable with exception of chronic skin changes noted which are bilateral shins. Patient has exquisite calf tenderness for the right calf - palpation of this area leads to patient to withdraw the leg and reach forward with b/l UE. Patient is noted to have mild calf tenderenss to the left calf with palpation. Patient has intact ankle and foot motion bilaterally. Sensation appears to be intact b/l LE and neurovascularly intact b/l LE. Patient is s/p right total hip Continue total hip precautions x 6 weeks postoperatively Hip abduction wedge between legs while laying and sleeping Will have staff change patient's honeycomb dressing today and will monitor for drainage Stat doppler to r/o DVT as patient noted to have had CTA chest, but no evaluation for DVT lower extremities. Patient is noted to have exquisite calf tenderness. PT/OT consultation once patient becomes more medically stable Thank you for this consultation. We will continue to follow patient while inpatient and rearrange his outpatient follow up as he was to be seen in office today. Please reach out with any concerns regarding patient's orthopedic health. Objective Vital signs: Vital Signs Temp Pulse Resp BP Pulse Ox 01/12/19 12:44 110 25 122/68 96 01/12/19 12:11 31 94 01/12/19 11:41 97.9 F 130 16 123/79 96 Intake and Output 01/11/19 01/12/19 01/12/19 23:59 07:59 15:59 Intake Total 0 / 0 Output Total 250 / 250 Balance -250 / -250 Intake: Oral 0 / 0 Output: Urine 250 / 250 Other: Weight 82.5 kg Blood Glucose* 221 Patient Weight 01/12/19 23:59 Weight 82.5 kg - Labs CBC & BMP: 01/13/19 01:05 01/13/19 01:05 Labs: Abnormal lab results WBC 15.4 K/mcL (4.3-11.1) H 01/12/19 12:21 RBC 3.71 M/mcL (4.19-5.50) L 01/12/19 12:21 Hgb 11.2 g/dL (12.9-16.9) L 01/12/19 12:21 Hct 35.0 % (37.5-50.1) L 01/12/19 12:21 Neutrophils # 14.1 K/mcL (1.6-8.9) H 01/12/19 12:21 Lymphocytes # 0.4 K/mcL (0.6-4.6) L 01/12/19 12:21 ABG pCO2 50 mmHg (35-45) H 01/12/19 11:52 ABG pO2 76 mmHg (85-104) L 01/12/19 11:52 ABG Total CO2 28 mEq/L (20-26) H 01/12/19 11:52 ABG O2 Saturation 94 % (95-98) L 01/12/19 11:52 Sodium 133 mEq/L (136-145) L 01/12/19 12:21 Potassium 5.2 mEq/L (3.5-5.1) H 01/12/19 12:21 Glucose 206 mg/dL (70-105) H 01/12/19 12:21 Consult Discharge Plan - Plan Referrals: Ratna Arambula, EKG MANAGER [Primary Care Provider] -
[2019-01-12] MEDS ORDERED: Levalbuterol Neb 0.63 MG/3 ML IH SCH (13:30)
[2019-01-12] MEDS: Azithromycin 500 MG in D5% in Water 250 ML IVPB SCH (14:36)
[2019-01-12] MEDS: Ipratropium Neb 0.5 MG NEBULIZER IH SCH ×4 (15:14→23:47)
[2019-01-12] MEDS: Levalbuterol Neb 1.25 MG/3 ML IH SCH ×4 (15:15→23:47)
[2019-01-12] MEDS ORDERED: Perflutren Lipid Microsphere 1.3 ML in 0.9 % Sodium Chloride 8.7 ML IVP ONE (15:34)
--- NOTE | 2019-01-12 15:35 | Electrocardiograph Report ---
[place] [id number] Test Date: 2019-01-12 Pat Name: Dimas Parker Department: 111 Room: 2NE27 Gender: M Decision Support Analyst: : 1940 Requested By: Fatuma Eason Order Number: [id number] Reading MD: Meño Doshi Measurements Intervals [place] Rate: 138 P: CT: 0 QRS: 49 QRSD: 101 T: 265 QT: 282 QTc: 363 Interpretive Statements ATRIAL FIBRILLATION WITH RAPID VENTRICULAR RESPONSE Electronically Signed On 01-12-2019 15:33:47 EDT by Meño Doshi
--- NOTE | 2019-01-12 16:36 | Oncology Inp Consult Note ---
<Enzo Schultz - Last Filed: 01/12/19 17:47> Date of Encounter: 01/12/19 Time of Encounter: 16:33 Assessment and Plan (1) Atrial fibrillation with RVR Status: Acute Assessment and plan: Atrial fibrillation with rapid ventricular response. The patient appears to have rapid heart rate which has been controlled adequately with Cardizem drip since his arrival, however this seems to have caused to decompensated heart failure picture and the patient has had acute respiratory failure as a result. We suspect that a large majority of his clinical symptoms are a result of this rapid heart rate at this time, especially given his appearance of vascular congestion on chest x-ray. At this time, stabilization of the patient's heart rate as has been done by the hospitalist, along with diuresis and continued use of BiPAP for respiratory stabilization is the most appropriate treatment plan. Discussed with the patient's family that treatment of cancer can be discussed once the patient has stabilized him and discharged, however it is not pertinent at this time. They understand. The patient was asleep for much of the discussion today, we will discuss further when he is alert and conjoined in the discussion. (2) Acute and chronic respiratory failure Status: Acute Assessment and plan: Acute respiratory failure likely secondary to heart failure in the setting of [facility] [place] atrial fibrillation with rapid ventricular response. This is being controlled by the hospitalist. The patient may benefit from additional diuresis. 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 The patient was initially scheduled for follow-up at the cancer Center today, however he ended up in the hospital due to atrial fibrillation with rapid ventricular response and resultant respiratory failure. We will follow up in outpatient setting the patient stabilized. (4) Metastatic renal cell carcinoma to bone Status: Acute Assessment and plan: As above (5) Status post right hip replacement Status: Acute - Data of Consult Patient: known to practice within the last 3 years Consult date: 01/12/19 Requesting Physician: Fatuma Eason Primary Care Provider: Ratna W Horry, DIAGNOSTIC RADIOLOGIST - Consult Narrative Reason for consult: Metastatic renal cell carcinoma History of present illness: Mr. Parker is a 78yo man who presented to [facility] on 01/12/19 from [facility] due to severe dyspnea and atrial fibrillation with rapid ventricular response. Hematology and oncology was consulted on 01/12/19 due to recent diagnosis of metastatic renal cellular carcinoma to the right hip with left kidney primary mass. The patient was initially scheduled for outpatient follow-up with Dr. Marks today at the [facility]. The patient is very somnolent due to sedation with IV ativan, and is also on bipap at time of exam, so his history is primarily obtained from his , daughter, and prior documentation. In short, Mr. Parker is a 78-year-old gentleman with history of CAD, carotid stenosis, renal artery stenosis, unknown skin malignancy on his nose about one year ago, bladder cancer in 2004 with chemotherapy, and total hip replacement on 01/03/19 following identification of a mass on the right femoral neck which was later biopsied and found to be metastatic renal cellular carcinoma. The patient was also identified to have a 7.6 cm mass on the left kidney with left ureteral obstruction, and multiple scattered noncalcified pulmonary nodules throughout both lungs compatible with metastatic disease versus possible primary lung cancer on chest CT on 01/06/19. The patient re-presented to [facility] from [facility] on 01/12/19 due to severe shortness of breath and rapid heart rate which has been going on for 24 hours. The patient apparently was doing physical therapy and had been doing very well however he started to develop this shortness of breath and was no longer able to completely even mild to moderate physical activity. He has had this kind of shortness of breath before when he has had atrial fibrillation with rapid ventricular response. The patient apparently has had RAINES, orthopnea and dry cough. He denies fever, chills, sweats. His appetite has been poor. He does continue to have pain in his right hip. His only other complaint at this time is constipation and abdominal pain. He otherwise has no acute complaints. At [facility], the patient was found to have a heart rate in the 140s, and was apparently labored in breathing in addition this, he was requiring increased oxygen demand and was tripoding in position. He had a CTA of his chest which apparently showed a groundglass appearance and redemonstrated prior lung nodules with groundglass opacities, however there were no PEs documented. The patient did receive Ativan to ease his anxiety which apparently was helpful, and he was started on a Cardizem drip which also was somewhat helpful for him. Past Med Surg Social Fam HX - Past Medical History Medical history: cancer (renal and mets to bone and lung), CHF (no echo on file), COPD, coronary artery disease, diabetes, hypertension Additional medical history: Pacemaker. PVD. Irregular Heart Beat. CVD. Rheumatiod Arthritis. Cataracts. Home O2 at 1.5L/Min PRN. Heart Attack. Right Hip Lytic Lesion Femoral Neck Psychiatric history: no psych history - Past Surgical History Surgical History: cancer surgery, cataract, hip replacement (01/05/19) Additional surgical history: Stent to Kidney. Left Carotid Artery. Open Heart Sx - Social History Smoking Status: Current every day smoker Smokeless Tobacco Status: No Alcohol use: occasionally Drug use: none - Family History Father Family Member Ethnicity: Non- Living Status: Hx Family Cardiac Disorders: Yes (CVA) Hx Family Cancer: Yes (Type unknown) Hx Family Neurologic Disorders: Yes (CVA) Mother Family Member Ethnicity: Non- Living Status: Brother Family Member Ethnicity: Non- Living Status: Hx Family Cardiac Disorders: Yes (CAD) Hx Family Cancer: Yes (Type unknown) Sister Family Member Ethnicity: Non- Living Status: Hx Family Cancer: Yes (Type unknown) Medications and Allergies Aspirin [Adult Aspirin] 81 mg PO DAILY 01/05/19 [History] Dabigatran Etexilate Mesylate [Pradaxa] 150 mg PO BID 01/05/19 [History] Diltiazem CD (24hr) [Cardizem CD] 240 mg PO DAILY 01/05/19 [History] Docusate [Colace] 100 mg PO BID 5 Days #10 capsule 01/05/19 [Rx] Docusate [Colace] 100 mg PO QPM PRN 01/05/19 [History] GlipiZIDE XL (24 HR) [Glucotrol XL] 10 mg PO DAILY 01/05/19 [History] Ipratropium Neb [Atrovent Neb] 0.5 mg IH Q6HR PRN 01/05/19 [History] Levalbuterol Neb [Xopenex Neb] 1.25 mg IH Q8H PRN 01/05/19 [History] Losartan Potassium 100 mg PO DAILY 01/05/19 [History] OxyCODONE Immed Rel [Roxicodone 5 MG] 5 mg PO Q6HR PRN 5 Days #20 tablet 01/05/19 [Rx] OxyCODONE Immed Rel [Roxicodone 5 MG] 5 mg PO Q6HR PRN 5 Days #20 tablet 01/05/19 [Rx] Metoprolol Succinate 100 mg PO HS 30 Days #30 tab.er.24h 01/08/19 [Rx] Metoprolol XL (24 HR) Succ [Toprol Xl] 100 mg PO DAILY #30 tab.er.24h 01/08/19 [Rx] Allergy/AdvReac Type Severity Reaction Status Date / Time albuterol Allergy See Verified 01/05/19 13:07 Comments heparin Allergy See Verified 01/05/19 13:22 Comments ROS unobtainable: due to mental status Oncology - Exam - Constitutional Exam: Gen: Vitals noted. No acute distress. Patient is quite somnolent and on BiPAP Eyes: anicteric sclerae, moist conjunctivae; no lid-lag; Pupils equal and reactive to light HENT: Atraumatic; oropharynx clear with moist mucous membranes Neck: Trachea midline; supple, no thyromegaly or lymphadenopathy Cardiac: Rapid and irregular, no murmur, +S1/S2 Pulmonary: Diminished breath sounds bilaterally with faint crackles in the bases Abdomen: Distended abdomen with facial grimace on deep palpation but no obvious masses noted MSK: ROM intact, no joint swelling noted Extremities: 2+ right lower extremity edema with no left lower extremity edema, nontender calf, no cyanosis or clubbing Skin: Normal temperature, turgor and texture; no rash, ulcers or subcutaneous nodules Neuro: moves all extremities, no focal deficits. Psych: Patient is somnolent, unable to assess Consult Discharge Plan - Plan Referrals: Ratna Arambula, DIAGNOSTIC RADIOLOGIST [Primary Care Provider] - Inpatient Charges Provider: Dr. Toro Marks <Vinay Marks - Last Filed: 01/12/19 20:49> Date of Encounter: 01/12/19 - Data of Consult Requesting Physician: Fatuma Eason Primary Care Provider: Ratna Aramblua, DIAGNOSTIC RADIOLOGIST - Attending Attestation I have seen and examined Mr. Parker and agree with the assessment plan put in place by the resident. He has been admitted with CHF exacerbation from atrial fibrillation with RVR. He is sedated and on bipap. I reviewed pathology which confirmed our suspicion of metastatic renal carcinoma. I discussed potential treatment options with family at his bedside as requested. He would be considered to have poor risk disease by IMDC criteria, and I discussed utilizing immunotherapy or combination TKI/immunotherapy. Nature of his therapy will depend upon patient wishes as well as physical fitness. We discussed prognosis as well. All questions answered to the best of my ability. I spent 45 minutes in face-face counseling with the family. THe patient was unable to participate in the conversation secondary to sedation. Inpatient Charges Provider: Dr. Toro Marks Consult - Inpatient Medicare Only: [id number]
[2019-01-12] MEDS: Insulin LISPRO 300 UNITS/3 ML VIAL SQ SCH (18:12)
[2019-01-12] MEDS ORDERED: Furosemide 20 MG/2 ML VIAL IVP ONE (18:27)
[2019-01-12] MEDS ORDERED: Bisacodyl 10 MG RECTAL SUPPOSITORY RC ONE (21:00)
[2019-01-12] MEDS: *HR* Dabigatran 150 MG CAPSULE PO SCH (21:30)
[2019-01-13] MEDS: MethylPREDNISolone 40 MG/ML VIAL IVP SCH ×3 (01:20→17:29)
[2019-01-13] MEDS: Insulin LISPRO 300 UNITS/3 ML VIAL SQ SCH ×4 (01:20→18:38)
[2019-01-13 01:25] LABS: Basophils % 0.1 %; Eosinophils % 0.1 %; Hematocrit 35.1 % (37.5-50.1); Hemoglobin 11.2 g/dL (12.9-16.9); Immature Granulocytes % 0.9 % (0-4); Lymphocytes # 0.5 K/mcL (0.6-4.6); Lymphocytes % 3.9 %; Mean Corpuscular HGB Conc 31.9 g/dL (31.6-35.5); Mean Corpuscular Hemoglobin 29.7 pg (28.0-33.3); Mean Corpuscular Volume 93.1 fL (83.0-100.0); Mean Platelet Volume 11.1 fL (9.4-12.4); Monocytes # 0.4 K/mcL (0.0-1.3); Monocytes % 2.8 %; Neutrophils # 12.9 K/mcL (1.6-8.9); Platelet Count 246 K/mcL (140-400); Red Blood Count 3.77 M/mcL (4.19-5.50); Red Cell Distribution Width 13.3 % (11.5-14.5); Segmented Neutrophils % 92.2 %
[2019-01-13 01:44] LABS: Alanine Aminotransferase 14 Units/L (7-52); Albumin 3.8 g/dL (3.5-5.7); Albumin/Globulin Ratio 1.2 (1.1-2.2); Alkaline Phosphatase 61 Units/L (34-104); Aspartate Amino Transferase 18 Units/L (13-39); BUN/Creatinine Ratio 21 (6-26); Bilirubin,Total 1.2 mg/dL (0.3-1.0); Blood Urea Nitrogen 23 mg/dL (8-23); Calcium 9.4 mg/dL (8.6-10.3); Carbon Dioxide 24 mEq/L (23-29); Chloride 100 mEq/L (98-107); Globulin 3.2 g/dL (2.4-3.5); Glucose 204 mg/dL (70-105); Magnesium 2.3 mg/dL (1.6-2.6); Osmolality,Calculated 286 (280-300); Phosphorous 3.3 mg/dL (2.7-4.5); Potassium 4.5 mEq/L (3.5-5.1); Sodium 133 mEq/L (136-145); eGFR For African Americans > 60 (> 60); eGFR For Non-African Americans > 60 (> 60)
[2019-01-13] MEDS: Levalbuterol Neb 1.25 MG/3 ML IH SCH ×4 (07:31→19:57)
[2019-01-13] MEDS: Ipratropium Neb 0.5 MG NEBULIZER IH SCH ×4 (07:31→19:57)
--- NOTE | 2019-01-13 08:39 | Electrocardiograph Report ---
[place] [id number] Test Date: 2019-01-12 Pat Name: Dimas Parker Department: 111 Room: 2NE27 Gender: M Senior Construction Manager: : 1940 Requested By: Efrain Villanueva Order Number: [id number] Reading MD: John Prajapati Measurements Intervals [place] Rate: 108 P: [place]: 0 QRS: 31 QRSD: 95 T: 188 QT: 341 QTc: 404 Interpretive Statements ATRIAL FIBRILLATION WITH RAPID VENTRICULAR RESPONSE PROBABLE INFERIOR MYOCARDIAL INFARCTION [35 ms Q WAVE IN II/aVF], PROBABLY OLD MODERATE T-WAVE ABNORMALITY, CONSIDER LATERAL ISCHEMIA [-0.1+ mV T WAVE IN I/aVL/V5/V6] Electronically Signed On 01-13-2019 8:37:55 EDT by John Prajapati
[2019-01-13] MEDS: *HR* Dabigatran 150 MG CAPSULE PO SCH ×2 (09:14→22:00)
[2019-01-13] MEDS: Aspirin Enteric Coated 81 MG Tablet PO SCH (09:14)
--- NOTE | 2019-01-13 10:42 | Oncology Inp Progress Note ---
<Enzo Schultz - Last Filed: 01/13/19 14:06> Date of Encounter: 01/13/19 Time of Encounter: 11:30 (1) Atrial fibrillation with RVR Current Visit: Yes Status: Acute Assessment and plan: Atrial fibrillation with rapid ventricular response. The patient was rate controlled on Cardizem drip yesterday and was taken off the with the intention of transitioning back to by mouth meds however he went back into rapid ventricular response at that time. He did have some decompensated heart failure with diastolic dysfunction as result. Agree with continued attempts at rate control, diuresis as patient is able to tolerate. (2) Acute and chronic respiratory failure Current Visit: Yes Status: Acute Assessment and plan: Acute respiratory failure likely secondary to heart failure in the setting of acute atrial fibrillation with rapid ventricular response. This is being controlled by the hospitalist. The patient may benefit from additional diuresis. He is now off of BiPAP. 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 The patient was initially scheduled for follow-up at the cancer Center today, however he ended up in the hospital due to atrial fibrillation with rapid ventricular response and resultant respiratory failure. We will follow up in outpatient setting the patient stabilized. (4) Metastatic renal cell carcinoma to bone Current Visit: Yes Status: Chronic Assessment and plan: As above (5) Status post right hip replacement Current Visit: Yes Status: Acute Oncology: Subj Interval history: The patient is resting comfortably in bed at time of examination. He is off BiPAP today and says that he is breathing much better than he was yesterday. His heart rate was rate controlled overnight for most of the evening and he was off the drip, however he did go back into rapid ventricular response at in this morning and was placed back on the Cardizem drip. He overall does not have any acute complaints this morning. His family did not discuss with him the renal cell carcinoma diagnosis that he received and this was news to him this morning. He does have a lot of thinking to do about this. Any significant pain, nausea, vomiting, fatigue. The patient does mention that he has yet to have a bowel movement at this time and continues to have abdominal pain as a result. - Constitutional Exam: Gen: Vitals noted. No acute distress. Eyes: anicteric sclerae, moist conjunctiva Neck: Trachea midline; supple, no thyromegaly or lymphadenopathy Cardiac: Irregularly irregular and rapid, no murmur, +S1/S2 Pulmonary: Mild crackles heard on auscultation bilaterally especially in the bases, otherwise diminished Abdomen: Generally distended with some tenderness noted in the left lower quadrant but no peritoneal signs Extremities: Decreased edema in the right lower extremity but still 1-2+. No calf tenderness Skin: Normal temperature, turgor and texture; no rash, ulcers or subcutaneous nodules Neuro: moves all extremities, no focal deficits. Psych: Appropriate mood and behavior. A&Ox3 Oncology: Obj Data - Labs CBC & Chem 7: 01/13/19 01:05 01/13/19 01:05 Consult Discharge Plan - Plan Referrals: Ratna Arambula, REGULATORY AFFAIRS PORTFOLIO LEADER [Primary Care Provider] - <Levon Rivera - Last Filed: 01/13/19 17:47> Date of Encounter: 01/13/19 Oncology: Obj Data - Labs CBC & Chem 7: 01/13/19 01:05 01/13/19 01:05 Inpatient Charges Provider: Dr. Estephanie Rivera Follow up - Inpatient: [id number] - Attending Attestation I examined this patient and my medical decision-making was reviewed with the Advanced Practice Nurse. I agree with the documented findings, disposition and treatment plan as described except to the extent set forth below. D/w patient that he has renal cell carcinoma, clear cell histology He has Stage IV disease based on presentation Will have him follow up in our clinic as an outpatient
--- NOTE | 2019-01-13 10:51 | Pulmonology Progress Note ---
Date of Encounter: 01/13/19 Time of Encounter: 10:49 Assessment and Plan (1) Acute and chronic respiratory failure Current Visit: Yes Status: Acute Hypoxia and work of breathing appear to be multifactorial in etiology. He has poor underlying pulmonary reserve secondary to COPD and likely metastatic disease to the lung. Acute worsening secondary to diastolic congestive heart failure due to A. fib with RVR. COPD exacerbation may also be contributing. Low FRC related to abdominal bloating may be contributing as well. Okay to trial off BiPAP from my standpoint, it may be reasonable to utilize BiPAP nightly + as needed for work of breathing or refractory hypoxia. Qualifiers: Respiratory failure complication: hypoxia Qualified Code(s): J96.21 - Acute and chronic respiratory failure with hypoxia (2) COPD with acute exacerbation Current Visit: Yes Status: Acute Agree with steroids and scheduled bronchodilators. I have added a 5 day course of azithromycin to treat an acute exacerbation of COPD. I will transition him to by mouth prednisone 5 days starting on 01/14/2019. (3) Abdominal distention Current Visit: Yes Status: Acute He has recently been started on opioids and has been rather constipated with abdominal bloating. No clear evidence of ileus on KUB. Due to his poor pulmonary reserve from COPD abdominal bloating could be contributing to his respiratory issues, therefore we should aggressively treat with a bowel regimen and minimizing opioids as able. (4) Atrial fibrillation with RVR Current Visit: No Status: Acute Management per primary service. He is on diltiazem for rate control. Agree with diuresis to tolerance. Comment: Pulmonary team will continue to follow. Overall prognosis guarded. Palliative care consultation would be reasonable. Subjective Principal diagnosis: s/p right total hip Interval history: No acute overnight events. Patient did spend some time off BiPAP yesterday evening. He did display significant work of breathing with out of bed activities such as toileting. He is still constipated. No fevers or chills. Objective PUL Vital signs: Last Vital Signs Temp 97.5 F L 01/13/19 07:28 Pulse 84 01/13/19 07:28 Resp 21 01/13/19 07:31 BP 114/67 01/13/19 07:31 Pulse Ox 97 01/13/19 07:31 General appearance: no acute distress, alert Eyes: nonicteric ENT: oropharynx dry, other (BiPAP mask in place) Effort: mildly labored Auscultation: bilateral: rales (Soft bilateral inspiratory crackles posteriorly) Cardiovascular: irregular rhythm Gastrointestinal: soft, non-tender, other (Distended) Integumentary: normal Extremities: no cyanosis normal mental status, non-focal exam mood appropriate Results - Laboratory Findings CBC and BMP: 01/13/19 01:05 01/13/19 01:05 ABG ABG pH 7.33 pH Units (7.32-7.45) 01/12/19 11:52 ABG pCO2 50 mmHg (35-45) H 01/12/19 11:52 ABG pO2 76 mmHg (85-104) L 01/12/19 11:52 ABG O2 Saturation 94 % (95-98) L 01/12/19 11:52 Abnormal lab findings: Abnormal lab results WBC 14.0 K/mcL (4.3-11.1) H 01/13/19 01:05 RBC 3.77 M/mcL (4.19-5.50) L 01/13/19 01:05 Hgb 11.2 g/dL (12.9-16.9) L 01/13/19 01:05 Hct 35.1 % (37.5-50.1) L 01/13/19 01:05 Neutrophils # 12.9 K/mcL (1.6-8.9) H 01/13/19 01:05 Lymphocytes # 0.5 K/mcL (0.6-4.6) L 01/13/19 01:05 ABG pCO2 50 mmHg (35-45) H 01/12/19 11:52 ABG pO2 76 mmHg (85-104) L 01/12/19 11:52 ABG Total CO2 28 mEq/L (20-26) H 01/12/19 11:52 ABG O2 Saturation 94 % (95-98) L 01/12/19 11:52 Sodium 133 mEq/L (136-145) L 01/13/19 01:05 Potassium 5.8 mEq/L (3.5-5.1) H 01/12/19 18:40 Glucose 204 mg/dL (70-105) H 01/13/19 01:05 POC Glucose 241 mg/dL (70-99) H 01/13/19 00:55 Total Bilirubin 1.2 mg/dL (0.3-1.0) H 01/13/19 01:05 Troponin I 0.08 ng/mL (< 0.04) H* 01/13/19 01:05 B-Natriuretic Peptide 438 pg/mL (Less than 100) H 01/13/19 01:05 - Clinical Findings Intake & Output: Intake & Output 01/12/19 01/13/19 01/13/19 23:59 07:59 15:59 Intake Total 100 / 400 100 / 100 0 / 100 Output Total 0 / 250 1200 / 1200 Balance 100 / 150 -1100 / -1100 0 / -1100 Consult Discharge Plan - Plan Referrals: Ratna Arambula, DENTURE MODEL MAKER [Primary Care Provider] -
--- NOTE | 2019-01-13 12:10 | Orthopedics Progress Note ---
Date of Encounter: 01/13/19 Time of Encounter: 12:30 - Assessment and Plan (1) Status post right hip replacement Current Visit: Yes Status: Acute Subjective Principal diagnosis: s/p right total hip Interval history: Mr. Parker was admitted to [facility] respiratory compromise. He is postop day #8 status post right total hip replacement performed on 01/[address] Carr. Patient was found to have an abnormal x-ray and was referred to Dr. Allen with [facility]. He was seen by Dr. Allen on 01/03/19. On that same day, he had CT of the right hip, CT abdomen and pelvis and a nuclear medicine whole body bone scan. These revealed lytic mass to the right hip with concerns for metastatic disease. Patient had a consultation with Dr. Carr orthopedic surgeon on 01/03/19 as well and was recommended for right total hip replacement with plans for the bone mass to be sent for pathology testing. Patient found on pathology testing to have renal cell carcinoma on bone pathology. On exam, patient resting comfortably in bed with Nebulizer mask and O2 via NC. Patient in no acute distress. Right hip incision has dressing clean/dry, intact. Sensor incision c/d/i. 1+ pitting edema with scattered ecchymosis noted surrounding surgical sites. Scattered ecchymosis noted to the RLE. LLE is unremarkable with exception of chronic skin changes noted which are bilateral shins. Patient has calf tenderness for the right calf. No left calf tenderness. Patient has intact ankle and foot motion bilaterally. Sensation appears to be intact b/l LE and neurovascularly intact b/l LE. Patient is s/p right total hip Continue total hip precautions x 6 weeks postoperatively Hip abduction wedge between legs while laying and sleeping Will have staff change patient's honeycomb dressing today and will monitor for drainage Stat doppler 01/12 was negative for DVT/PE. PT/OT consultation once patient becomes more medically stable Thank you for this consultation. We will continue to follow patient while inpatient and rearrange his outpatient follow up as he was to be seen in office today. Please reach out with any concerns regarding patient's orthopedic health. Objective Vital signs: Vital Signs Temp Pulse Resp BP Pulse Ox 01/13/19 11:39 97.4 F L 104 16 111/72 92 01/13/19 07:31 21 114/67 97 01/13/19 07:28 97.5 F L 84 16 114/67 95 01/13/19 04:11 18 96 01/13/19 00:51 97.8 F 119 22 109/65 100 01/12/19 23:49 16 96 01/12/19 21:30 94 01/12/19 20:39 25 97 01/12/19 20:17 97.7 F 102 20 140/87 99 01/12/19 18:02 90 21 130/72 96 01/12/19 15:33 26 98 01/12/19 15:27 97.3 F L 96 14 124/73 97 01/12/19 14:43 98 24 116/69 96 01/12/19 12:44 110 25 122/68 96 01/12/19 12:11 31 94 Intake and Output 01/12/19 01/13/19 01/13/19 23:59 07:59 15:59 Intake Total 100 / 400 100 / 150 50 / 150 Output Total 0 / 250 1200 / 1200 Balance 100 / 150 -1100 / -1050 50 / -1050 Intake: IV Fluids 100 / 400 100 / 150 50 / 150 Cardizem 50 MG In 0.9 % Sodium 100 / 100 100 / 150 50 / 150 Chloride 40 ML @ 15 MG/HR 15 mls/hr IVC CONT MOISES Rx#: [id number] Oral 0 / 0 0 / 0 0 / 0 Output: Urine 0 / 250 1200 / 1200 Other: Meal Dinner Breakfast Percent of Meal Consumed 0% 0% Blood Glucose* 261 181 - Labs CBC & BMP: 01/13/19 01:05 01/13/19 01:05 Labs: Abnormal lab results WBC 14.0 K/mcL (4.3-11.1) H 01/13/19 01:05 RBC 3.77 M/mcL (4.19-5.50) L 01/13/19 01:05 Hgb 11.2 g/dL (12.9-16.9) L 01/13/19 01:05 Hct 35.1 % (37.5-50.1) L 01/13/19 01:05 Neutrophils # 12.9 K/mcL (1.6-8.9) H 01/13/19 01:05 Lymphocytes # 0.5 K/mcL (0.6-4.6) L 01/13/19 01:05 ABG pCO2 50 mmHg (35-45) H 01/12/19 11:52 ABG pO2 76 mmHg (85-104) L 01/12/19 11:52 ABG Total CO2 28 mEq/L (20-26) H 01/12/19 11:52 ABG O2 Saturation 94 % (95-98) L 01/12/19 11:52 Sodium 133 mEq/L (136-145) L 01/13/19 01:05 Potassium 5.8 mEq/L (3.5-5.1) H 01/12/19 18:40 Glucose 204 mg/dL (70-105) H 01/13/19 01:05 POC Glucose 241 mg/dL (70-99) H 01/13/19 00:55 Total Bilirubin 1.2 mg/dL (0.3-1.0) H 01/13/19 01:05 Troponin I 0.07 ng/mL (< 0.04) H* 01/13/19 09:10 B-Natriuretic Peptide 438 pg/mL (Less than 100) H 01/13/19 01:05 Consult Discharge Plan - Plan Referrals: Ratna Arambula, MANAGEMENT TECH [Primary Care Provider] -
[2019-01-13] MEDS: Azithromycin 500 MG in D5% in Water 250 ML IVPB SCH (12:47)
--- NOTE | 2019-01-13 15:54 | Internal Med Progress Note ---
Hospitalist Progress Note - Encounter Date of Encounter: 01/13/19 Time of Encounter: 08:45 - Subjective Interval History: No acute events overnight. Patient is currently more awake and alert. He complains of constipation and abdominal discomfort. - Exam Vitals: Temp Pulse Resp BP Pulse Ox 36.3 C L 104 16 111/72 97 01/13/19 11:39 01/13/19 11:39 01/13/19 15:30 01/13/19 11:39 01/13/19 15:30 Exam: GENERAL: Not in distress. Alert and Oriented HEENT: EOMI, PERRLA MOUTH: Moist oral mucosa NECK:No JVD, No lymph nodes. CHEST AND LUNGS: Currently on BiPAP, Reduced air entry bilaterally. No wheezes or crackles. HEART: S1 and S2 normal, irregular rhythm, no murmurs ABDOMEN: Soft, nontender, no organomegaly SKIN: Normal color, no rashes, no lesions EXTREMITIES: No deformity, no edema, no tenderness, no joint swelling or clubbing NEUROLOGICAL: Normal cognition, normal motor and sensory exam. - Assessment and Plan (1) Acute and chronic respiratory failure with hypoxia Current Visit: Yes Status: Acute Assessment and Plan: Pateint currently saturating well on BiPAP Pulmonology on board Recommend BiPAP use nightly + as needed for work of breathing or refractory hypoxia (2) Renal cell carcinoma of left kidney Current Visit: Yes Status: Chronic Assessment and Plan: Oncology on board. Oncologist met family and explained condition to patient. Plan is to follow up in outpatient setting after discharge. (3) Metastatic renal cell carcinoma to bone Current Visit: Yes Status: Chronic Assessment and Plan: Patient has metastatic lesions to right femoral neck along with likely pulmonary mets. He had right hip repair on 01/05/19 Ortho on board Oncology to see as outpatient (4) Atrial fibrillation with RVR Current Visit: Yes Status: Acute Assessment and Plan: Rate currently controlled with cardizem Rhythm still irregular Will transition to oral rate control On Dabigatran for AC (5) History of right hip hemiarthroplasty Current Visit: Yes Status: Chronic Assessment and Plan: Had surgery on 01/05/19 Ortho following during recovery. (6) Hyperkalemia Current Visit: Yes Status: Acute Assessment and Plan: Potassium has currently normalized Will monitor (7) COPD exacerbation Current Visit: Yes Status: Acute Assessment and Plan: Presented with respiratory failure requiring BiPaP No wheezes on exam Continue breathing treatments (8) Constipation Current Visit: Yes Status: Acute Assessment and Plan: Patient states he has not had a "decent" bowel in 8 days and has abdominal discomfort because of that Will give magnesium citrate DVT Prophylaxis: On Dabigatran - Time Spent with Patient Total time spent is greater than 50% in coordination of care (as documented) at patient's floor/unit and/or counseling patient: Internal Medicine: Result - Labs CBC & Chem 7: 01/13/19 01:05 01/13/19 01:05 Labs: Short CBC 01/13/19 Range/Units 01:05 WBC 14.0 H (4.3-11.1) K/mcL Hgb 11.2 L (12.9-16.9) g/dL Hct 35.1 L (37.5-50.1) % Plt Count 246 (140-400) K/mcL Neutrophils # 12.9 H (1.6-8.9) K/mcL BMP 01/12/19 01/13/19 18:40 01:05 Sodium 133 L Potassium 5.8 H 4.5 Chloride 100 Carbon Dioxide 24 BUN 23 Creatinine 1.09 Glucose 204 H Calcium 9.4 Cardiac Enzymes 01/12/19 01/13/19 01/13/19 Range/Units 18:40 01:05 09:10 Troponin I 0.07 H* 0.08 H* 0.07 H* (< 0.04) ng/mL Liver Function 01/13/19 Range/Units 01:05 Total Bilirubin 1.2 H (0.3-1.0) mg/dL AST 18 (13-39) Units/L ALT 14 (7-52) Units/L Alkaline Phosphatase 61 (34-104) Units/L Albumin 3.8 (3.5-5.7) g/dL - ABG Interpretation ABG results: ABG ABG pH 7.33 pH Units (7.32-7.45) 01/12/19 11:52 ABG pCO2 50 mmHg (35-45) H 01/12/19 11:52 ABG pO2 76 mmHg (85-104) L 01/12/19 11:52 ABG O2 Saturation 94 % (95-98) L 01/12/19 11:52 - Impressions Impressions Echocardiogram 01/12/19 12:34 Impressions: LVEF 45%. Normal LV chamber size, wall thickness. Segmental left ventricular systolic dysfunction. Atypical septal motion consistent with post-operative status. Indeterminate diastolic function. Normal right ventricular structure and function. Mild aortic regurgitation. Mild mitral regurgitation. No evidence of pulmonary hypertension. A device lead was visualized in the right atrium and right ventricle. 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 All other wall segments showed normal motion. Findings: Study Quality * Technically sub-optimal due to poor echocardiographic windows. ECG Findings * Atrial fibrillation. Left Ventricle * LVEF 45%. * Normal LV chamber size, wall thickness. * Segmental left ventricular systolic dysfunction. * Atypical septal motion consistent with post-operative status. * Indeterminate diastolic function. Right Ventricle * Normal right ventricular structure and function. Left Atrium * Mildly dilated left atrium. Right Atrium * Mildly dilated right atrium. Interatrial Septum * No evidence of PFO by color Doppler. Aortic Valve * Aortic valve not well visualized. * Mildly sclerotic aortic valve leaflets. * Mild aortic regurgitation. * No aortic stenosis. Mitral Valve * Mild mitral annular calcification * Mild mitral regurgitation. * No mitral stenosis. Tricuspid Valve * Normal tricuspid valve structure and function. * Trace tricuspid regurgitation. * No evidence of pulmonary hypertension. Pulmonic Valve * Pulmonic valve not well visualized. * No pulmonic regurgitation. Aorta * Normally sized aortic root. Pericardium * The pericardium appears normal. Pulmonary Artery * Normal visualized portions of the main pulmonary artery. Device lead * A device lead was visualized in the right atrium and right ventricle. Consult Discharge Plan - Plan Referrals: Ratna Arambula, CHAUFFEUR [Primary Care Provider] - (8) Constipation Qualifiers: Constipation type: drug induced constipation Qualified Code(s): K59.03 - Drug induced constipation
[2019-01-14] MEDS: Insulin LISPRO 300 UNITS/3 ML VIAL SQ SCH ×5 (00:58→21:43)
[2019-01-14] MEDS: Levalbuterol Neb 1.25 MG/3 ML IH SCH ×4 (07:46→20:02)
[2019-01-14] MEDS: Ipratropium Neb 0.5 MG NEBULIZER IH SCH ×4 (07:47→20:02)
[2019-01-14 08:35] LABS: Basophils % 0.1 %; Hematocrit 33.1 % (37.5-50.1); Hemoglobin 10.8 g/dL (12.9-16.9); Immature Granulocytes % 1.4 % (0-4); Lymphocytes # 0.7 K/mcL (0.6-4.6); Lymphocytes % 3.5 %; Mean Corpuscular HGB Conc 32.6 g/dL (31.6-35.5); Mean Corpuscular Hemoglobin 30.6 pg (28.0-33.3); Mean Corpuscular Volume 93.8 fL (83.0-100.0); Mean Platelet Volume 10.7 fL (9.4-12.4); Monocytes # 0.9 K/mcL (0.0-1.3); Monocytes % 4.4 %; Neutrophils # 17.7 K/mcL (1.6-8.9); Platelet Count 247 K/mcL (140-400); Red Blood Count 3.53 M/mcL (4.19-5.50); Red Cell Distribution Width 13.3 % (11.5-14.5); Segmented Neutrophils % 90.6 %; White Blood Count 19.5 K/mcL (4.3-11.1)
[2019-01-14 08:52] LABS: BUN/Creatinine Ratio 31 (6-26); Blood Urea Nitrogen 32 mg/dL (8-23); Calcium 8.9 mg/dL (8.6-10.3); Carbon Dioxide 29 mEq/L (23-29); Chloride 102 mEq/L (98-107); Glucose 186 mg/dL (70-105); Osmolality,Calculated 294 (280-300); Potassium 4.3 mEq/L (3.5-5.1); Sodium 136 mEq/L (136-145); eGFR For African Americans > 60 (> 60); eGFR For Non-African Americans > 60 (> 60)
[2019-01-14] MEDS: predniSONE 20 MG TABLET PO SCH (09:02)
[2019-01-14] MEDS: *HR* Dabigatran 150 MG CAPSULE PO SCH ×2 (09:02→21:43)
[2019-01-14] MEDS: Aspirin Enteric Coated 81 MG Tablet PO SCH (09:02)
[2019-01-14] MEDS ORDERED: Metoprolol 100 MG TABLET PO SCH (09:21)
--- NOTE | 2019-01-14 11:44 | Internal Med Progress Note ---
Hospitalist Progress Note - Encounter Date of Encounter: 01/14/19 Time of Encounter: 11:46 - Subjective Interval History: No acute events overnight. Patient states that he had a large bowel movement yesterday which has helped improve his SOB and abdominal discomfort. - Exam Vitals: Temp Pulse Resp BP Pulse Ox 36.4 C L 87 14 110/64 94 01/14/19 11:33 01/14/19 11:33 01/14/19 11:33 01/14/19 11:33 01/14/19 11:33 Exam: GENERAL: Not in distress. Alert and Oriented HEENT: EOMI, PERRLA MOUTH: Moist oral mucosa NECK:No JVD, No lymph nodes. CHEST AND LUNGS: Currently on INO2 at 3L/m, reduced air entry in posterior lower zones. No crackles or wheezes. HEART: S1 and S2 normal, irregular rhythm, no murmurs ABDOMEN: Soft, nontender, no organomegaly SKIN: Normal color, no rashes, no lesions EXTREMITIES: No deformity, no edema, no tenderness, no joint swelling or club vinny NEUROLOGICAL: Normal cognition, normal motor and sensory exam. - Assessment and Plan (1) Acute and chronic respiratory failure with hypoxia Current Visit: Yes Status: Acute Assessment and Plan: Patient states that SOB has significantly improved since his BM yesterday. Seen at bedside. He is on O2 via NC at 3L/min Pulmo recommends BiPAP at night and PRN during the day. Will continue to try to wean him down to his home O2 requirements. (2) Renal cell carcinoma of left kidney Current Visit: Yes Status: Chronic Assessment and Plan: Oncology on board. Oncologist met family and explained condition to patient. Plan is to follow up in outpatient setting after discharge. (3) Metastatic renal cell carcinoma to bone Current Visit: Yes Status: Chronic Assessment and Plan: Patient has metastatic lesions to right femoral neck along with likely pulmonary mets. He had right hip repair on 01/05/19 Ortho on board Oncology to see as outpatient (4) Atrial fibrillation with RVR Current Visit: Yes Status: Acute Assessment and Plan: Rate currently controlled with cardizem Rhythm still irregular Will resume patient's home metroprolol dose of 100mg bid. Will slowly wean off cardizem drip. (5) History of right hip hemiarthroplasty Current Visit: Yes Status: Chronic Assessment and Plan: Had surgery on 01/05/19 Surgical site looks clean and dry. Ortho following during recovery. (6) COPD exacerbation Current Visit: Yes Status: Acute Assessment and Plan: WBC elevated lilkely due to IV steroids. No wheezes on exam Continue breathing treatments (7) Constipation Current Visit: Yes Status: Acute Assessment and Plan: Patient had copious BM yesterday after Mag Citrate. States that he feels much better now. Counseled on including fibre in diet. DVT Prophylaxis: On Dabigatran - Time Spent with Patient Total time spent is greater than 50% in coordination of care (as documented) at patient's floor/unit and/or counseling patient: Internal Medicine: Result - Labs CBC & Chem 7: 01/14/19 08:20 01/14/19 08:20 Labs: Short CBC 01/14/19 Range/Units 08:20 WBC 19.5 H (4.3-11.1) K/mcL Hgb 10.8 L (12.9-16.9) g/dL Hct 33.1 L (37.5-50.1) % Plt Count 247 (140-400) K/mcL Neutrophils # 17.7 H (1.6-8.9) K/mcL BMP 01/14/19 08:20 Sodium 136 Potassium 4.3 Chloride 102 Carbon Dioxide 29 BUN 32 H Creatinine 1.02 Glucose 186 H Calcium 8.9 - ABG Interpretation ABG results: ABG ABG pH 7.33 pH Units (7.32-7.45) 01/12/19 11:52 ABG pCO2 50 mmHg (35-45) H 01/12/19 11:52 ABG pO2 76 mmHg (85-104) L 01/12/19 11:52 ABG O2 Saturation 94 % (95-98) L 01/12/19 11:52 Consult Discharge Plan - Plan Referrals: Ratna Arambula, DRY ROASTER [Primary Care Provider] - (7) Constipation Qualifiers: Constipation type: drug induced constipation Qualified Code(s): K59.03 - Drug induced constipation
[2019-01-14] MEDS: Azithromycin 500 MG in D5% in Water 250 ML IVPB SCH (11:52)
--- NOTE | 2019-01-14 13:40 | Pulmonology Progress Note ---
Date of Encounter: 01/14/19 Time of Encounter: 13:38 Assessment and Plan (1) Acute and chronic respiratory failure Current Visit: Yes Status: Acute Hypoxia and work of breathing appear to be multifactorial in etiology. He has poor underlying pulmonary reserve secondary to COPD and likely metastatic disease to the lung. Acute worsening secondary to diastolic congestive heart failure due to A. fib with RVR. COPD exacerbation may also be contributing. Low FRC related to abdominal bloating may be contributing as well. He appears stable on low-flow oxygen via nasal cannula at this time. Has BiPAP on an as needed basis moving forward. Qualifiers: Respiratory failure complication: hypoxia Qualified Code(s): J96.21 - Acute and chronic respiratory failure with hypoxia (2) COPD with acute exacerbation Current Visit: Yes Status: Acute Agree with steroids and scheduled bronchodilators. I have added a 5 day course of azithromycin to treat an acute exacerbation of COPD. I have transitioned him to by mouth prednisone 5 days starting on 01/14/2019. (3) Abdominal distention Current Visit: Yes Status: Acute He has recently been started on opioids and has been rather constipated with abdominal bloating. No clear evidence of ileus on KUB. Due to his poor pulmonary reserve from COPD abdominal bloating could be contributing to his respiratory issues, therefore we should aggressively treat with a bowel regimen and minimizing opioids as able. (4) Atrial fibrillation with RVR Current Visit: Yes Status: Acute Management per primary service. He is on diltiazem drip and enteral beta blockers for rate control. Comment: No further recommendations from a pulmonary standpoint. We will sign off. Subjective Principal diagnosis: s/p right total hip Interval history: No acute overnight events. Is now stable off the BiPAP. He continues to require low dose diltiazem infusion. He reports his breathing is improving. No fevers or chills. Objective PUL Vital signs: Last Vital Signs Temp 97.5 F L 01/14/19 11:33 Pulse 87 01/14/19 11:33 Resp 14 01/14/19 11:33 BP 110/64 01/14/19 11:33 Pulse Ox 94 01/14/19 11:33 General: no acute distress Eyes: nonicteric ENT: oropharynx moist Neck: supple, no lymphadenopathy Lungs: Clear to auscultation bilaterally Cardiovascular: Irregular rhythm, tachycardic Gastrointestinal: normoactive bowel sounds, soft, non-tender, non-distended Integumentary: normal Extremities: no cyanosis, no edema Musculoskeletal: no deformities Neuro: normal mental status, non-focal exam Psych: mood appropriate, affect normal Results - Laboratory Findings CBC and BMP: 01/14/19 08:20 01/14/19 08:20 ABG ABG pH 7.33 pH Units (7.32-7.45) 01/12/19 11:52 ABG pCO2 50 mmHg (35-45) H 01/12/19 11:52 ABG pO2 76 mmHg (85-104) L 01/12/19 11:52 ABG O2 Saturation 94 % (95-98) L 01/12/19 11:52 Abnormal lab findings: Abnormal lab results WBC 19.5 K/mcL (4.3-11.1) H 01/14/19 08:20 RBC 3.53 M/mcL (4.19-5.50) L 01/14/19 08:20 Hgb 10.8 g/dL (12.9-16.9) L 01/14/19 08:20 Hct 33.1 % (37.5-50.1) L 01/14/19 08:20 Neutrophils # 17.7 K/mcL (1.6-8.9) H 01/14/19 08:20 Lymphocytes # 0.5 K/mcL (0.6-4.6) L 01/13/19 01:05 ABG pCO2 50 mmHg (35-45) H 01/12/19 11:52 ABG pO2 76 mmHg (85-104) L 01/12/19 11:52 ABG Total CO2 28 mEq/L (20-26) H 01/12/19 11:52 ABG O2 Saturation 94 % (95-98) L 01/12/19 11:52 Sodium 133 mEq/L (136-145) L 01/13/19 01:05 Potassium 5.8 mEq/L (3.5-5.1) H 01/12/19 18:40 BUN 32 mg/dL (8-23) H 01/14/19 08:20 BUN/Creatinine Ratio 31 (6-26) H 01/14/19 08:20 Glucose 186 mg/dL (70-105) H 01/14/19 08:20 POC Glucose 338 mg/dL (70-99) H 01/14/19 00:43 Total Bilirubin 1.2 mg/dL (0.3-1.0) H 01/13/19 01:05 Troponin I 0.07 ng/mL (< 0.04) H* 01/13/19 09:10 B-Natriuretic Peptide 438 pg/mL (Less than 100) H 01/13/19 01:05 - Clinical Findings Intake & Output: Intake & Output 01/13/19 01/14/19 01/14/19 23:59 07:59 15:59 Intake Total 50 / 500 107 / 638.4 531.4 / 638.4 Output Total 0 / 1200 0 / 200 200 / 200 Balance 50 / -700 107 / 438.4 331.4 / 438.4 Consult Discharge Plan - Plan Referrals: Ratna Arambula, PET STYLIST [Primary Care Provider] -
[2019-01-14] MEDS ORDERED: Diltiazem CD (24hr) 240 MG CAPSULE PO SCH (16:45)
[2019-01-14] MEDS: Ibuprofen 400 MG TABLET PO PRN (18:37)
[2019-01-15] MEDS: GuaiFENesin Liq 200 MG/10 ML UDC PO PRN ×2 (01:42→11:06)
[2019-01-15] MEDS: Ipratropium Neb 0.5 MG NEBULIZER IH SCH ×6 (03:17→20:21)
[2019-01-15] MEDS: Levalbuterol Neb 1.25 MG/3 ML IH SCH ×6 (03:17→20:21)
[2019-01-15] MEDS: predniSONE 20 MG TABLET PO SCH (07:41)
[2019-01-15] MEDS: *HR* Dabigatran 150 MG CAPSULE PO SCH ×2 (07:41→21:31)
[2019-01-15] MEDS: Insulin LISPRO 300 UNITS/3 ML VIAL SQ SCH ×4 (07:41→21:31)
[2019-01-15] MEDS: Aspirin Enteric Coated 81 MG Tablet PO SCH (07:41)
[2019-01-15 07:42] LABS: Basophils % 0.1 %; Eosinophils % 0.1 %; Hematocrit 34.4 % (37.5-50.1); Hemoglobin 11.1 g/dL (12.9-16.9); Immature Granulocytes % 1.4 % (0-4); Lymphocytes # 1.5 K/mcL (0.6-4.6); Lymphocytes % 9.4 %; Mean Corpuscular HGB Conc 32.3 g/dL (31.6-35.5); Mean Corpuscular Hemoglobin 30.6 pg (28.0-33.3); Mean Corpuscular Volume 94.8 fL (83.0-100.0); Mean Platelet Volume 10.9 fL (9.4-12.4); Monocytes # 1.2 K/mcL (0.0-1.3); Monocytes % 7.7 %; Neutrophils # 12.9 K/mcL (1.6-8.9); Platelet Count 268 K/mcL (140-400); Red Blood Count 3.63 M/mcL (4.19-5.50); Red Cell Distribution Width 13.2 % (11.5-14.5); Segmented Neutrophils % 81.3 %; White Blood Count 15.9 K/mcL (4.3-11.1)
[2019-01-15 07:49] LABS: BUN/Creatinine Ratio 32 (6-26); Blood Urea Nitrogen 35 mg/dL (8-23); Carbon Dioxide 29 mEq/L (23-29); Chloride 99 mEq/L (98-107); Glucose 223 mg/dL (70-105); Osmolality,Calculated 297 (280-300); Potassium 4.5 mEq/L (3.5-5.1); Sodium 136 mEq/L (136-145); eGFR For African Americans > 60 (> 60); eGFR For Non-African Americans > 60 (> 60)
[2019-01-15] MEDS ORDERED: Metoprolol 100 MG TABLET PO SCH (09:00)
--- NOTE | 2019-01-15 10:05 | Cardiology Consult Note ---
<Kal Vasquez R - Last Filed: 01/15/19 10:03> Date of Encounter: 01/15/19 Time of Encounter: 10:03 Assessment and Plan (1) Atrial fibrillation with RVR Current Visit: Yes Status: Acute Known hx of A-Fib anticoagulated on Pradaxa. Home meds included Cardizem CD 240mg daily and Toprol XL 100mg daily. Presented with respiratory failure and COPD exacerbation, likely contributing to RVR. HR currently controlled on cardizem gtt at 10mg/hr. Received 240mg PO Cardizem CD yesterday afternoon. Will attempt to wean off cardizem gtt and transition to PO short acting, 90mg [id number]. Current BB dose is Lopressor 100mg QAM and 50mg QPM. Will increase to 100mg BID. Will re-evaluate HR control tomorrow AM. TTE 01/12/19: LVEF 45%. Normal LV chamber size, wall thickness. Segmental left ventricular systolic dysfunction. Mild aortic regurgitation. Mild mitral regurgitation. No evidence of phtn. A device lead was visualized in the right atrium and right ventricle. Follows with cardiology in [place]. EF mildly reduced. Will obtain records to compare. Will discuss and review with Dr. Clement. (2) CAD (coronary artery disease) Current Visit: No Status: Chronic Hx CAD and CABG. Denies chest pain. Continue ASA, BB. Start Statin. Qualifiers: Coronary Disease-Associated Artery/Lesion type: unspecified vessel or lesion type [place] vs. transplanted heart: [place] heart Associated angina: angina presence unspecified Qualified Code(s): I25.10 - Atherosclerotic heart disease of [place] coronary artery without angina pectoris (3) Elevated troponin Current Visit: Yes Status: Acute Troponin negative, then 0.07, 0.08, 0.07--flat and adynamic in setting of A-Fib RVR, respiratory failure and COPD exacerbation. Likely demand ischemia, nondiagnostic for ACS. Denies chest pain. TTE EF 45%. No prior to compare, follows in [place]. Will obtain records. Discussion w patient/family: The assessment and plan as outlined above was discussed with the patient and/or family members who expressed understanding and agreement. All questions were answered. Thank you for involving us in the care of your patient. Please call with any questions. I will discuss all the above with Dr. Clement and make changes as necessary. History of Present Illness Consult date: 01/15/19 Consult reason: A-Fib RVR History of present illness: Mr. Parker is a 78 year old male with PMH of HTN, DM, Atrial fibrillation on Pradaxa, Pacemaker, CAD s/p CABG, COPD on home O2 1.5L continuous, tobacco abuse, PVD, RA, 01/05/19 right total hip repair for lytic lesion from left renal cell carcinoma, with mets to bone and multiple lung nodules presumed mets but cannot rule out underlying lung primary with path pending. He was discharged to home 01/08/19. He was a transfer from [facility]. He presented in respira tory distress and has been treated for respiratory failure and COPD exacerbation. Noted to be difficult to rate control and cardiology consulted for further recs. HR 80s at bedside currently on cardizem gtt at 10mg/hr. He denies chest pain or palpitations. TTE 01/12/19: LVEF 45%. Normal LV chamber size, wall thickness. Segmental left ventricular systolic dysfunction. Atypical septal motion consistent with post- operative status. Indeterminate diastolic function. Normal right ventricular structure and function. Mild aortic regurgitation. Mild mitral regurgitation. No evidence of pulmonary hypertension. A device lead was visualized in the right atrium and right ventricle. Past Med Surg Social Fam HX - Past Medical History Medical history: cancer (renal and mets to bone and lung), CHF (no echo on file), COPD, coronary artery disease, diabetes, hypertension Additional medical history: Pacemaker. PVD. Irregular Heart Beat. CVD. Rheumatiod Arthritis. Cataracts. Home O2 at 1.5L/Min PRN. Heart Attack. Right Hip Lytic Lesion Femoral Neck Psychiatric history: no psych history - Past Surgical History Surgical History: cancer surgery, cataract, hip replacement (01/05/19) Additional surgical history: Stent to Kidney. Left Carotid Artery. Open Heart Sx - Social History Smoking Status: Current every day smoker Smokeless Tobacco Status: No Alcohol use: occasionally Drug use: none - Family History Father Family Member Ethnicity: Non- Living Status: Hx Family Cardiac Disorders: Yes (CVA) Hx Family Cancer: Yes (Type unknown) Hx Family Neurologic Disorders: Yes (CVA) Mother Family Member Ethnicity: Non- Living Status: Brother Family Member Ethnicity: Non- Living Status: Hx Family Cardiac Disorders: Yes (CAD) Hx Family Cancer: Yes (Type unknown) Sister Family Member Ethnicity: Non- Living Status: Hx Family Cancer: Yes (Type unknown) Medications and Allergies Aspirin [Adult Aspirin] 81 mg PO DAILY 01/05/19 [History] Dabigatran Etexilate Mesylate [Pradaxa] 150 mg PO BID 01/05/19 [History] Diltiazem CD (24hr) [Cardizem CD] 240 mg PO DAILY 01/05/19 [History] Docusate [Colace] 100 mg PO BID 5 Days #10 capsule 01/05/19 [Rx] GlipiZIDE XL (24 HR) [Glucotrol XL] 10 mg PO DAILY 01/05/19 [History] Ipratropium Neb [Atrovent Neb] 0.5 mg IH Q6HR PRN 01/05/19 [History] Levalbuterol Neb [Xopenex Neb] 1.25 mg IH Q8H PRN 01/05/19 [History] Losartan Potassium 100 mg PO DAILY 01/05/19 [History] OxyCODONE Immed Rel [Roxicodone 5 MG] 5 mg PO Q6HR PRN 5 Days #20 tablet 01/05/19 [Rx] Metoprolol Succinate 100 mg PO HS 30 Days #30 tab.er.24h 01/08/19 [Rx] Allergy/AdvReac Type Severity Reaction Status Date / Time albuterol Allergy See Verified 01/05/19 13:07 Comments heparin Allergy See Verified 01/05/19 13:22 Comments All Systems Review: The remainder of the systems were reviewed and are negative Physical Examination Vital Signs, Last 4 Hours Temp Pulse Resp BP Pulse Ox 01/15/19 07:30 14 92 01/15/19 06:57 97.9 F 86 14 128/72 92 Vital Signs Temp Pulse Resp BP Pulse Ox 01/15/19 07:30 14 92 01/15/19 06:57 97.9 F 86 14 128/72 92 01/15/19 03:19 18 95 01/15/19 02:59 97.8 F 88 14 112/71 94 01/14/19 23:15 97 01/14/19 22:52 97.8 F 81 14 116/66 96 01/14/19 20:03 18 96 01/14/19 19:09 97.6 F 120 14 117/66 94 01/14/19 16:00 97.6 F 112 14 109/69 95 01/14/19 15:49 18 96 01/14/19 11:33 97.5 F L 87 14 110/64 94 01/14/19 11:03 16 95 Intake and Output 01/14/19 01/15/19 01/15/19 23:59 07:59 15:59 Intake Total 129.6 / 818.0 502 / 622 120 / 622 Output Total 250 / 400 150 / 400 Balance 129.6 / 618.0 252 / 222 -30 / 222 Intake: IV Fluids 129.6 / 578.0 Cardizem 125 MG In 0.9 % Sodium 129.6 / 228.0 Chloride 100 ML @ 15 MG/HR 15 mls/hr IVC CONT [facility] Rx#: [id number] Oral 0 / 240 480 / 600 120 / 600 Output: Urine 250 / 400 150 / 400 Other: Meal Breakfast Percent of Meal Consumed 100% Stool Size Large Stool Consistency soft Stool Characteristics Normal for Patient Stool Color Brown # Voids 1 # Bowel Movements 1 Weight 83.7 kg Blood Glucose* 321 212 Patient Weight 01/15/19 23:59 Weight 83.7 kg General: Conversant, No Apparent Distress HEENT: Atraumatic, Normocephaly, Mucus Membranes Moist Neck: No JVD, Normal carotid pulses Cardiac: Other (irregularly irregular ) Lungs: Other (diminished) Neuro: Alert and responsive, No focal deficits noted Abdomen: Soft, Non-Tender Skin: No rashes noted on visualized skin Musculoskeletal: No Chest Wall Tenderness Extremities: No Clubbing, No Cyanosis, No Edema, Normal Pulses Results 01/15/19 07:07 01/15/19 07:07 Lab Results 01/15/19 01/15/19 07:07 07:07 WBC 15.9 H Hgb 11.1 L Hct 34.4 L Plt Count 268 Sodium 136 Potassium 4.5 Chloride 99 Carbon Dioxide 29 BUN 35 H Creatinine 1.08 Glucose 223 H Calcium 9.0 Short CBC 01/15/19 Range/Units 07:07 WBC 15.9 H (4.3-11.1) K/mcL Hgb 11.1 L (12.9-16.9) g/dL Hct 34.4 L (37.5-50.1) % Plt Count 268 (140-400) K/mcL Neutrophils # 12.9 H (1.6-8.9) K/mcL BMP 01/15/19 Range/Units 07:07 Sodium 136 (136-145) mEq/L Potassium 4.5 (3.5-5.1) mEq/L Chloride 99 (98-107) mEq/L Carbon Dioxide 29 (23-29) mEq/L BUN 35 H (8-23) mg/dL Creatinine 1.08 (0.70-1.30) mg/dL Glucose 223 H (70-105) mg/dL Calcium 9.0 (8.6-10.3) mg/dL Active Medications Aspirin (Aspirin Ec) 81 mg PO DAILY [facility] Stop: 07/15/19 09:01 Last Admin: 01/15/19 07:41 Dose: 81 mg Documented by: Dabigatran (Pradaxa) 150 mg PO BID [facility]; Protocol Stop: 07/14/19 21:01 Last Admin: 01/15/19 07:41 Dose: 150 mg Documented by: Dextrose/Water (Dextrose 50% (Syg)) 25 ml IVP AD PRN PRN Reason: Hypoglycemia Stop: 07/14/19 12:46 Diltiazem HCl (Cardizem Cd) 240 mg PO QPM [facility] Stop: 07/16/19 16:46 Last Admin: 01/14/19 17:23 Dose: 240 mg Documented by: Docusate Sodium (Colace) 100 mg PO BID [facility]; Protocol Stop: 07/14/19 21:01 Last Admin: 01/15/19 07:40 Dose: 100 mg Documented by: Glucagon (Glucagen) 1 mg IM ONCE PRN PRN Reason: Hypoglycemia Stop: 07/14/19 12:46 Glucose (Gluctose) 15 gm PO ONCE PRN PRN Reason: Hypoglycemia Stop: 07/14/19 12:46 Glucose (Gluctose) 30 gm PO ONCE PRN PRN Reason: Hypoglycemia Stop: 07/14/19 12:46 Guaifenesin (Robitussin Liq) 200 mg PO Q6HR PRN PRN Reason: Cough Stop: 07/17/19 01:40 Last Admin: 01/15/19 01:42 Dose: 200 mg Documented by: Dextrose (Dextrose 5%) 1,000 mls @ 100 mls/hr IVC .Q10H PRN PRN Reason: HYPOGLYCEMIA Stop: 07/14/19 12:46 Azithromycin 500 mg/ Dextrose 250 mls @ 252 mls/hr IVPB Q24H [facility] Stop: 01/16/19 14:00 Last Infusion: 01/14/19 12:57 Dose: Infused Documented by: Diltiazem HCl 125 mg/ Sodium (Chloride) 125 mls @ 15 mls/hr IVC CONT [facility]; Protocol Stop: 07/14/19 12:16 Last Admin: 01/15/19 01:28 Dose: 10 mg/hr, 10 mls/hr Documented by: Ibuprofen (Motrin) 400 mg PO Q8HR PRN PRN Reason: FEVER/PAIN Stop: 07/16/19 18:26 Last Admin: 01/14/19 18:37 Dose: 400 mg Documented by: Insulin Human Lispro (Humalog) 0 units SQ ACHS [facility]; Protocol Stop: 07/16/19 11:31 Last Admin: 01/15/19 07:41 Dose: 4 units Documented by: Ipratropium [place] (Atrovent Neb) 0.5 mg IH Q4HWA [facility] Stop: 07/14/19 13:01 Last Admin: 01/15/19 07:29 Dose: 0.5 mg Documented by: Levalbuterol HCl (Xopenex) 1.25 mg IH Q4HWA [facility] Stop: 07/14/19 13:01 Last Admin: 01/15/19 07:30 Dose: 1.25 mg Documented by: Metoprolol Tartrate (Lopressor) 100 mg PO QDPC [facility] Stop: 01/25/19 09:01 Last Admin: 01/15/19 07:41 Dose: 100 mg Documented by: Metoprolol Tartrate (Lopressor) 50 mg PO HS [facility] Stop: 02/13/19 21:01 Last Admin: 01/14/19 21:43 Dose: 50 mg Documented by: Naloxone HCl (Narcan) 0.4 mg IVP Q2MPRN PRN PRN Reason: SEE COMMENTS Stop: 07/14/19 12:17 Ondansetron HCl (Zofran) 4 mg IVP Q8HR PRN PRN Reason: Nausea And Vomiting Stop: 07/14/19 12:17 Oxycodone HCl (Roxicodone) 5 mg PO Q6HR PRN; Protocol PRN Reason: Severe Pain Stop: 07/14/19 12:29 Prednisone (Prednisone) 40 mg PO DAILY [facility] Stop: 01/18/19 09:01 Last Admin: 01/15/19 07:41 Dose: 40 mg Documented by: - Imaging and Cardiology Echo: report reviewed - EKG Interpretation EKG results cardiology: personally reviewed (A-Fib RVR), other (12 hr tele AVG HR 91, A-Fib) Consult Discharge Plan - Plan Referrals: Ratna Arambula, BOX LINER [Primary Care Provider] - <Ahsan Clement - Last Filed: 01/15/19 19:45> Date of Encounter: 01/15/19 - Attending Attestation Patient was seen and evaluated independently by me. Findings, assessment and plan were discussed at length with patient, questions answered. Agree with nurse practitioner's/resident's documentation. Addition as follows, 78yoCM ho RCC mets to R-femur, CABG unclear LVEF, Afib pradaxa, PPM, COPD. P/w acute dyspnea. Neg CTPE. Consulted for Afib RVR, trop. 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 Trop max 0.07. TTE EF 45%, RV nl, mild AR/MR, no evidence of PH. HD stable, NC O2 2-3L, VR ctr ok, B/L scattered rhonchi and bibasilar fine crackles, B/L LE soft edema to mid shins. A: Afib on A/C, rate ctr ok now, home meds BB+cardizem Low LVEF, unclear duration, ?TCMP vs ICMP Mild trop elevation, type II likely Sepsis, COPD exacerbation RCC bone mets, ? lung mets CAD s/p CABG PPM P: obtain OSH records (TTE etc) up BB trial of switching dilt drip to short acting cardizem given low EF of unclear duration pradaxa dose based on eGFR Ahsan Clement MD, PhD Assessment and Plan Discussion w patient/family: The assessment and plan as outlined above was discussed with the patient and/or family members who expressed understanding and agreement. All questions were answered. Thank you for involving us in the care of your patient. Please call with any questions. History of Present Illness History of present illness: Mr. Parker is a 78 year old male All Systems Review: The remainder of the systems were reviewed and are negative Physical Examination Vital Signs, Last 4 Hours Pulse Resp BP Pulse Ox 01/15/19 16:53 86 16 114/73 93 Results 01/15/19 07:07 01/15/19 15:24 Lab Results 01/15/19 01/15/19 01/15/19 07:07 07:07 07:07 WBC 15.9 H Hgb 11.1 L Hct 34.4 L Plt Count 268 Sodium 136 Potassium 4.5 Chloride 99 Carbon Dioxide 29 BUN 35 H Creatinine 1.08 Glucose 223 H Calcium 9.0 Total Bilirubin AST ALT Alkaline Phosphatase Troponin I B-Natriuretic Peptide 270 H 01/15/19 15:24 WBC Hgb Hct Plt Count Sodium 133 L Potassium 5.3 H Chloride 101 Carbon Dioxide 22 L BUN 37 H Creatinine 1.27 Glucose 246 H Calcium 8.8 Total Bilirubin 0.8 AST 22 ALT 29 Alkaline Phosphatase 57 Troponin I 0.04 H* B-Natriuretic Peptide
--- NOTE | 2019-01-15 10:47 | Internal Med Progress Note ---
Hospitalist Progress Note - Encounter Date of Encounter: 01/15/19 Time of Encounter: 10:44 - Subjective Interval History: No acute event overnight. Patient has no new complaints. He denies chest pain, SOB and palpitations. - Exam Vitals: Temp Pulse Resp BP Pulse Ox 36.6 C 86 14 128/72 92 01/15/19 06:57 01/15/19 06:57 01/15/19 07:30 01/15/19 06:57 01/15/19 07:30 Exam: GENERAL: Not in distress. Alert and Oriented HEENT: EOMI, PERRLA MOUTH: Moist oral mucosa NECK:No JVD, No lymph nodes. CHEST AND LUNGS: Few wheezes bilaterally. No crackles. On low-flow oxygen HEART: S1 and S2 normal, irregular rhythm, no murmurs ABDOMEN: Soft, nontender, no organomegaly SKIN: Normal color, no rashes, no lesions EXTREMITIES: No deformity, no edema, no tenderness, no joint swelling or clubbing NEUROLOGICAL: Normal cognition, normal motor and sensory exam. - Assessment and Plan (1) Atrial fibrillation with RVR Current Visit: Yes Status: Acute Assessment and Plan: Patient back on cardizem drip. Rhythm still irregular Cardio following: Lopressor will be increased from 100mg am and 50mg pm to 100mg bid. They intend on possibly starting short acting Cardizem 90mg POq6h. Monitor. (2) Acute and chronic respiratory failure with hypoxia Current Visit: Yes Status: Acute Assessment and Plan: Patient denies respiratory distress On Low-flow oxygen Pulmo recommends BiPAP at night and PRN during the day. Will continue to try to wean him down to his home O2 requirements. (3) Renal cell carcinoma of left kidney Current Visit: Yes Status: Chronic Assessment and Plan: Oncology on board. Oncologist met family and explained condition to patient. Plan is to follow up in outpatient setting after discharge. (4) Metastatic renal cell carcinoma to bone Current Visit: Yes Status: Chronic Assessment and Plan: Patient has metastatic lesions to right femoral neck along with likely pulmonary mets. He had right hip repair on 01/05/19 Ortho on board Oncology to see as outpatient (5) History of right hip hemiarthroplasty Current Visit: Yes Status: Chronic Assessment and Plan: Had surgery on 01/05/19 Surgical site looks clean and dry. Ortho following during recovery. (6) COPD exacerbation Current Visit: Yes Status: Acute Assessment and Plan: WBC elevated lilkely due to IV steroids. Few wheezes bilaterally on exam. Pulmo following. Started on a 5 day course of oral azithromycin and prednisone. Continue breathing treatments (7) Diabetes mellitus Current Visit: No Status: Chronic Assessment and Plan: Blood glucose curently difficult to control on account of steroid therapy for COPD. Will continue with accuchecks SSI Alter insulin dose till BG is controlled. DVT Prophylaxis: On Dabigatran - Time Spent with Patient Total time spent is greater than 50% in coordination of care (as documented) at patient's floor/unit and/or counseling patient: Internal Medicine: Result - Labs CBC & Chem 7: 01/15/19 07:07 01/15/19 07:07 Labs: Short CBC 01/15/19 Range/Units 07:07 WBC 15.9 H (4.3-11.1) K/mcL Hgb 11.1 L (12.9-16.9) g/dL Hct 34.4 L (37.5-50.1) % Plt Count 268 (140-400) K/mcL Neutrophils # 12.9 H (1.6-8.9) K/mcL BMP 01/15/19 07:07 Sodium 136 Potassium 4.5 Chloride 99 Carbon Dioxide 29 BUN 35 H Creatinine 1.08 Glucose 223 H Calcium 9.0 - ABG Interpretation ABG results: ABG ABG pH 7.33 pH Units (7.32-7.45) 01/12/19 11:52 ABG pCO2 50 mmHg (35-45) H 01/12/19 11:52 ABG pO2 76 mmHg (85-104) L 01/12/19 11:52 ABG O2 Saturation 94 % (95-98) L 01/12/19 11:52 Consult Discharge Plan - Plan Referrals: Ratna Arambula, RECEPTIONIST CLERK [Primary Care Provider] - _ (7) Diabetes mellitus Qualifiers: Diabetes mellitus type: type 2 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
[2019-01-15] MEDS: Azithromycin 500 MG in D5% in Water 250 ML IVPB SCH (13:42)
[2019-01-15 16:05] LABS: Alanine Aminotransferase 29 Units/L (7-52); Albumin 3.6 g/dL (3.5-5.7); Albumin/Globulin Ratio 1.4 (1.1-2.2); Alkaline Phosphatase 57 Units/L (34-104); Aspartate Amino Transferase 22 Units/L (13-39); BUN/Creatinine Ratio 29 (6-26); Bilirubin,Total 0.8 mg/dL (0.3-1.0); Blood Urea Nitrogen 37 mg/dL (8-23); Calcium 8.8 mg/dL (8.6-10.3); Carbon Dioxide 22 mEq/L (23-29); Chloride 101 mEq/L (98-107); Globulin 2.5 g/dL (2.4-3.5); Glucose 246 mg/dL (70-105); Osmolality,Calculated 293 (280-300); Potassium 5.3 mEq/L (3.5-5.1); Sodium 133 mEq/L (136-145); Total Protein 6.1 g/dL (6.4-8.9); Troponin I 0.04 ng/mL (< 0.04); eGFR For African Americans > 60 (> 60); eGFR For Non-African Americans 55 (> 60)
--- NOTE | 2019-01-15 17:45 | Event Note ---
Date of Encounter: 01/15/19 Time of Encounter: 15:13 Was called to see patient who was complaining of sudden onset left sided pressure like pain and lethargy. On encounter, BP was 118/72, RR 20 and pulse 70bpm. Pateint looked very lethargic compared to when i saw him earlier on rounds. Troponin 0.04, less than initial troponin of 0.07. EKG showed ventricular paced rhythm at 70bpm and T wave inversions in lateral leads (present in previous EKG). CMP was significant for a potassiu of 5.3 Although patient's EKG does not reveal classic signs of hyperkalemia, i will give a single dose of IV calcium gluconate 1g and 20 units of Iv regular insulin in 500ml of 10% dextrose to run for an hour. Will continue to monitor patient.
[2019-01-15] MEDS ORDERED: D10 IVC ONE (18:15)
[2019-01-15] MEDS ORDERED: WATER IVC ONE (18:15)
[2019-01-15] MEDS ORDERED: INSULIN HUMAN REGULAR IVC ONE (18:15)
[2019-01-15] MEDS ORDERED: Calcium Gluconate 1gm/50mL 1 GM/50 ML BAG IVPB ONE (18:39)
[2019-01-15] MEDS: Metoprolol 100 MG TABLET PO SCH (21:31)
[2019-01-16 03:01] LABS: Basophils % 0.2 %; Eosinophils # 0.1 K/mcL (0.0-0.6); Eosinophils % 0.6 %; Hematocrit 36.6 % (37.5-50.1); Hemoglobin 11.7 g/dL (12.9-16.9); Immature Granulocytes % 1.9 % (0-4); Lymphocytes # 1.9 K/mcL (0.6-4.6); Lymphocytes % 9.4 %; Mean Corpuscular Hemoglobin 29.5 pg (28.0-33.3); Mean Corpuscular Volume 92.4 fL (83.0-100.0); Mean Platelet Volume 10.8 fL (9.4-12.4); Monocytes # 1.5 K/mcL (0.0-1.3); Monocytes % 7.7 %; Platelet Count 300 K/mcL (140-400); Red Blood Count 3.96 M/mcL (4.19-5.50); Red Cell Distribution Width 13.1 % (11.5-14.5); Segmented Neutrophils % 80.2 %; White Blood Count 19.9 K/mcL (4.3-11.1)
[2019-01-16 03:17] LABS: BUN/Creatinine Ratio 26 (6-26); Blood Urea Nitrogen 28 mg/dL (8-23); Calcium 9.1 mg/dL (8.6-10.3); Carbon Dioxide 25 mEq/L (23-29); Chloride 100 mEq/L (98-107); Glucose 142 mg/dL (70-105); Osmolality,Calculated 286 (280-300); Potassium 4.5 mEq/L (3.5-5.1); Sodium 134 mEq/L (136-145); eGFR For African Americans > 60 (> 60); eGFR For Non-African Americans > 60 (> 60)
[2019-01-16] MEDS: Ipratropium Neb 0.5 MG NEBULIZER IH SCH ×4 (07:32→20:10)
[2019-01-16] MEDS: Levalbuterol Neb 1.25 MG/3 ML IH SCH ×4 (07:32→20:10)
[2019-01-16] MEDS: Insulin LISPRO 300 UNITS/3 ML VIAL SQ SCH ×4 (09:11→19:50)
[2019-01-16] MEDS: *HR* Dabigatran 150 MG CAPSULE PO SCH ×2 (09:17→19:46)
[2019-01-16] MEDS: predniSONE 20 MG TABLET PO SCH (09:19)
[2019-01-16] MEDS: Diltiazem CD (24hr) 180 MG CAPSULE PO SCH (09:19)
[2019-01-16] MEDS: Aspirin Enteric Coated 81 MG Tablet PO SCH (09:19)
[2019-01-16] MEDS: Metoprolol 100 MG TABLET PO SCH ×2 (09:19→19:46)
--- NOTE | 2019-01-16 10:07 | Cardiology Progress Note ---
Date of Encounter: 01/16/19 Time of Encounter: 10:05 Assessment and Plan (1) Atrial fibrillation with RVR Current Visit: Yes Status: Acute Known hx of A-Fib anticoagulated on Pradaxa. Home meds included Cardizem CD 240mg daily and Toprol XL 100mg daily. Presented with respiratory failure and COPD exacerbation, likely contributing to RVR. Yesterday transitioned cardizem gtt to PO short acting, 90mg [id number]. Will transition to long acting Cardizem CD 360mg daily. Increased BB dose is Lopressor 100mg BID yesterday. HR better controlled. 12 hr tele AVG HR 90 bpm. TTE 01/12/19: LVEF 45%. Normal LV chamber size, wall thickness. Segmental left ventricular systolic dysfunction. Mild AR. Mild MR. No evidence of phtn. A device lead was visualized in the right atrium and right ventricle. Follows with cardiology in [place], Dr. Coles at [facility]. EF mildly reduced. Will obtain records to compare. (2) CAD (coronary artery disease) Current Visit: No Status: Chronic Hx CAD and CABG. Continue ASA, BB. Start Statin. Qualifiers: Coronary Disease-Associated Artery/Lesion type: unspecified vessel or lesion type [place] vs. transplanted heart: [place] heart Associated angina: angina presence unspecified Qualified Code(s): I25.10 - Atherosclerotic heart disease of [place] coronary artery without angina pectoris (3) Elevated troponin Current Visit: Yes Status: Acute Troponin negative, then 0.07, 0.08, 0.07, 0.04--flat and adynamic in setting of A-Fib RVR, respiratory failure and COPD exacerbation. Likely demand ischemia, nondiagnostic for ACS. TTE EF 45%. No prior to compare, follows in [place]. Will obtain records. Plan for nuclear stress test for further evaluation. (4) Chest pain Current Visit: Yes Status: Acute Episode of chest pain yesterday afternoon. No recurrence. Mild troponins likely demand ischemia. TTE EF 45%--unclear chronicity, obtaining records. Plan for nuclear stress test tomorrow for further evaluation. Qualifiers: Chest pain type: unspecified Qualified Code(s): R07.9 - Chest pain, unspecified Discussion w patient/family: The assessment and plan as outlined above was discussed with the patient and/or family members who expressed understanding and agreement. All questions were answered. Thank you for involving us in the care of your patient. Please call with any questions. I will discuss all the above with Dr. You and make changes as necessary. Subjective Principal diagnosis: s/p right total hip Interval history: Pt denies acute complaints this AM. Notes reviewed. Event yesterday afternoon of chest pain that pt describes as tightness, he is unable to recall exact details, but states he thinks it lasted minutes and has not had any recurrence. Objective Vital Signs, Last 4 Hours Temp Pulse Resp BP Pulse Ox 01/16/19 07:32 16 96 01/16/19 07:09 97.6 F 76 18 115/63 97 Vital Signs Temp Pulse Resp BP Pulse Ox 01/16/19 07:32 16 96 01/16/19 07:09 97.6 F 76 18 115/63 97 01/16/19 03:52 97.6 F 85 16 126/71 95 01/16/19 01:04 97.5 F L 79 16 126/76 98 01/15/19 22:15 97 01/15/19 20:51 97.5 F L 122 18 157/111 97 01/15/19 20:22 16 98 01/15/19 16:53 86 16 114/73 93 01/15/19 15:28 69 20 112/68 96 01/15/19 12:00 97.8 F 68 12 111/76 92 01/15/19 11:30 14 92 Intake and Output 01/15/19 01/16/19 01/16/19 23:59 07:59 15:59 Intake Total 1040.2 / 2152.2 Output Total 9010 / 9010 Balance 1040.2 / 1752.2 -9010 / -9010 Intake: IV Fluids 800.2 / 1072.2 HumuLIN R 20 UNIT In Dextrose 500.2 / 500.2 10% Water 500 Ml Ivbag 500 ML @ 500.2 mls/hr IVC ONCE ONE Rx#: [id number] Zithromax 500 MG In Dextrose 5% 250 / 250 250 ML @ 252 mls/hr IVPB Q24H [facility] Rx#:[id number] Calcium Gluconate 1gm/50mL 1 gm 50 / 50 In 50 ml @ 100 mls/hr IVPB ONCE ONE Rx#:[id number] Oral 240 / 1080 Output: Urine 9010 / 9010 Other: Meal Dinner Percent of Meal Consumed 25% Weight 84.5 kg Blood Glucose* 184 133 Patient Weight 01/16/19 23:59 Weight 84.5 kg General: Conversant, No Apparent Distress HEENT: Atraumatic, Normocephaly, Mucus Membranes Moist Neck: No JVD, Normal carotid pulses Cardiac: Other (irregularly irregular rhythm) Lungs: Normal Breath Sounds, No Wheeze, Rales, Rhonchi Neuro: Alert and responsive, No focal deficits noted Abdomen: Soft, Non-Tender Skin: No rashes noted on visualized skin Musculoskeletal: No Chest Wall Tenderness Extremities: No Clubbing, No Cyanosis, No Edema, Normal Pulses Results 01/16/19 02:37 01/16/19 02:37 Lab Results 01/15/19 01/15/19 01/16/19 07:07 15:24 02:37 WBC 19.9 H Hgb 11.7 L Hct 36.6 L Plt Count 300 Sodium 133 L Potassium 5.3 H Chloride 101 Carbon Dioxide 22 L BUN 37 H Creatinine 1.27 Glucose 246 H Calcium 8.8 Total Bilirubin 0.8 AST 22 ALT 29 Alkaline Phosphatase 57 Troponin I 0.04 H* B-Natriuretic Peptide 270 H 01/16/19 02:37 WBC Hgb Hct Plt Count Sodium 134 L Potassium 4.5 Chloride 100 Carbon Dioxide 25 BUN 28 H Creatinine 1.07 Glucose 142 H Calcium 9.1 Total Bilirubin AST ALT Alkaline Phosphatase Troponin I B-Natriuretic Peptide Short CBC 01/16/19 Range/Units 02:37 WBC 19.9 H (4.3-11.1) K/mcL Hgb 11.7 L (12.9-16.9) g/dL Hct 36.6 L (37.5-50.1) % Plt Count 300 (140-400) K/mcL Neutrophils # 16.0 H (1.6-8.9) K/mcL BMP 01/16/19 01/15/19 Range/Units 02:37 15:24 Sodium 134 L 133 L (136-145) mEq/L Potassium 4.5 5.3 H (3.5-5.1) mEq/L Chloride 100 101 (98-107) mEq/L Carbon Dioxide 25 22 L (23-29) mEq/L BUN 28 H 37 H (8-23) mg/dL Creatinine 1.07 1.27 (0.70-1.30) mg/dL Glucose 142 H 246 H (70-105) mg/dL Calcium 9.1 8.8 (8.6-10.3) mg/dL Cardiac Enzymes 01/15/19 Range/Units 15:24 Troponin I 0.04 H* (< 0.04) ng/mL Liver Function 01/15/19 Range/Units 15:24 Total Bilirubin 0.8 (0.3-1.0) mg/dL AST 22 (13-39) Units/L ALT 29 (7-52) Units/L Alkaline Phosphatase 57 (34-104) Units/L Albumin 3.6 (3.5-5.7) g/dL Impressions Chest X-Ray 01/15/19 11:40 IMPRESSION: No acute cardiopulmonary process. D/ / Christophe Brody MD / Christophe Brody MD Interpreting Provider: Christophe Brody MD Active Medications Aspirin (Aspirin Ec) 81 mg PO DAILY [facility] Stop: 07/15/19 09:01 Last Admin: 01/16/19 09:19 Dose: 81 mg Documented by: Dabigatran (Pradaxa) 150 mg PO BID [facility]; Protocol Stop: 07/14/19 21:01 Last Admin: 01/16/19 09:17 Dose: 150 mg Documented by: Dextrose/Water (Dextrose 50% (Syg)) 25 ml IVP AD PRN PRN Reason: Hypoglycemia Stop: 07/14/19 12:46 Diltiazem HCl (Cardizem Cd) 360 mg PO DAILY [facility] Stop: 07/18/19 09:01 Last Admin: 01/16/19 09:19 Dose: 360 mg Documented by: Docusate Sodium (Colace) 100 mg PO BID [facility]; Protocol Stop: 07/14/19 21:01 Last Admin: 01/16/19 09:19 Dose: 100 mg Documented by: Glucagon (Glucagen) 1 mg IM ONCE PRN PRN Reason: Hypoglycemia Stop: 07/14/19 12:46 Glucose (Gluctose) 15 gm PO ONCE PRN PRN Reason: Hypoglycemia Stop: 07/14/19 12:46 Glucose (Gluctose) 30 gm PO ONCE PRN PRN Reason: Hypoglycemia Stop: 07/14/19 12:46 Guaifenesin (Robitussin Liq) 200 mg PO Q6HR PRN PRN Reason: Cough Stop: 07/17/19 01:40 Last Admin: 01/15/19 11:06 Dose: 200 mg Documented by: Dextrose (Dextrose 5%) 1,000 mls @ 100 mls/hr IVC .Q10H PRN PRN Reason: HYPOGLYCEMIA Stop: 07/14/19 12:46 Azithromycin 500 mg/ Dextrose 250 mls @ 252 mls/hr IVPB Q24H [facility] Stop: 01/16/19 14:00 Last Infusion: 01/15/19 16:19 Dose: Infused Documented by: Ibuprofen (Motrin) 400 mg PO Q8HR PRN PRN Reason: FEVER/PAIN Stop: 07/16/19 18:26 Last Admin: 01/14/19 18:37 Dose: 400 mg Documented by: Insulin Human Lispro (Humalog) 0 units SQ [facility]; Protocol Stop: 07/16/19 11:31 Last Admin: 01/16/19 09:11 Dose: Not Given Documented by: Ipratropium [place] (Atrovent Neb) 0.5 mg IH Q4HWA [facility] Stop: 07/14/19 13:01 Last Admin: 01/16/19 07:32 Dose: 0.5 mg Documented by: Levalbuterol HCl (Xopenex) 1.25 mg IH Q4HWA [facility] Stop: 07/14/19 13:01 Last Admin: 01/16/19 07:32 Dose: 1.25 mg Documented by: Metoprolol Tartrate (Lopressor) 100 mg PO BID [facility] Stop: 01/25/19 21:01 Last Admin: 01/16/19 09:19 Dose: 100 mg Documented by: Naloxone HCl (Narcan) 0.4 mg IVP Q2MPRN PRN PRN Reason: SEE COMMENTS Stop: 07/14/19 12:17 Ondansetron HCl (Zofran) 4 mg IVP Q8HR PRN PRN Reason: Nausea And Vomiting Stop: 07/14/19 12:17 Oxycodone HCl (Roxicodone) 5 mg PO Q6HR PRN; Protocol PRN Reason: Severe Pain Stop: 07/14/19 12:29 Prednisone (Prednisone) 40 mg PO DAILY [facility] Stop: 01/18/19 09:01 Last Admin: 01/16/19 09:19 Dose: 40 mg Documented by: - Imaging and Cardiology Echo: report reviewed - EKG Interpretation EKG results cardiology: other (12 hr tele AVG HR 90, A-Fib) Consult Discharge Plan - Plan Referrals: Ratna Arambula, FORWARD AIR CONTROLLER/AIR OFFICER [Primary Care Provider] -
[2019-01-16] MEDS: *HR* OxyCODONE Immed Rel 5 MG TABLET PO PRN (10:18)
--- NOTE | 2019-01-16 11:40 | Internal Med Progress Note ---
Hospitalist Progress Note - Encounter Date of Encounter: 01/16/19 Time of Encounter: 11:39 - Subjective Interval History: No acute events after patient received management for hyperkalemia. He is back to being alert and pleasant. He denies chest pain, SOB, lightheadedness and palpitations. - Exam Vitals: Temp Pulse Resp BP Pulse Ox 36.4 C 76 16 115/63 97 01/16/19 07:09 01/16/19 07:09 01/16/19 10:51 01/16/19 07:09 01/16/19 10:51 Exam: GENERAL: Not in distress. Alert and Oriented HEENT: EOMI, PERRLA MOUTH: Moist oral mucosa NECK:No JVD, No lymph nodes. CHEST AND LUNGS: Few wheezes bilaterally. No crackles. On low-flow oxygen HEART: S1 and S2 normal, irregular rhythm, no murmurs ABDOMEN: Soft, nontender, no organomegaly SKIN: Normal color, no rashes, no lesions EXTREMITIES: No deformity, no edema, no tenderness, no joint swelling or clubbing NEUROLOGICAL: Normal cognition, normal motor and sensory exam. - Assessment and Plan (1) Atrial fibrillation with RVR Current Visit: Yes Status: Acute Assessment and Plan: Heart rate in low 100s Cardio on board: Plan is to transition to PO Cardizem 360m daily PO Lopressor 100mg BID On Dabigatran Will continue to monitor (2) CHF (congestive heart failure) Current Visit: Yes Status: Acute Assessment and Plan: Echo on 01/12/19 showed an EF of 45% . No previous Echocardiograms in our records. Records to be obtained from outpatient munitions handler supervisor at [facility] to compare. Nuclear stress planned for tomorrow ro further evaluate heart failure of unspecfied chronicity. (3) Acute and chronic respiratory failure with hypoxia Current Visit: Yes Status: Acute Assessment and Plan: Patient denies respiratory distress even with exertion. On Low-flow oxygen Pulmo recommends BiPAP at night and PRN during the day. Patient counseled that he is likely to go home on 3L of Oxygen. He requests for a portable oxygen tank. Will order one after a walk test. (4) Renal cell carcinoma of left kidney Current Visit: Yes Status: Chronic Assessment and Plan: Oncology on board. Oncologist met family and explained condition to patient. Plan is to follow up in outpatient setting after discharge. (5) Metastatic renal cell carcinoma to bone Current Visit: Yes Status: Chronic Assessment and Plan: Patient has metastatic lesions to right femoral neck along with likely pulmonary mets. He had right hip repair on 01/05/19 Ortho on board Oncology to see as outpatient (6) History of right hip hemiarthroplasty Current Visit: Yes Status: Chronic Assessment and Plan: Had surgery on 01/05/19 Surgical site looks clean and dry. Ortho following during recovery. (7) COPD exacerbation Current Visit: Yes Status: Acute Assessment and Plan: WBC elevated lilkely due to IV steroids. Few wheezes bilaterally on exam. Pulmo following. On a 5 day course of oral azithromycin and prednisone. Continue breathing treatments (8) Diabetes mellitus Current Visit: No Status: Chronic Assessment and Plan: Blood glucose this morning 142 Will continue with accuchecks SSI DVT Prophylaxis: On Dabigatran - Time Spent with Patient Total time spent is greater than 50% in coordination of care (as documented) at patient's floor/unit and/or counseling patient: Internal Medicine: Result - Labs CBC & Chem 7: 01/16/19 02:37 01/16/19 02:37 Labs: Short CBC 01/16/19 Range/Units 02:37 WBC 19.9 H (4.3-11.1) K/mcL Hgb 11.7 L (12.9-16.9) g/dL Hct 36.6 L (37.5-50.1) % Plt Count 300 (140-400) K/mcL Neutrophils # 16.0 H (1.6-8.9) K/mcL BMP 01/15/19 01/16/19 15:24 02:37 Sodium 133 L 134 L Potassium 5.3 H 4.5 Chloride 101 100 Carbon Dioxide 22 L 25 BUN 37 H 28 H Creatinine 1.27 1.07 Glucose 246 H 142 H Calcium 8.8 9.1 Cardiac Enzymes 01/15/19 Range/Units 15:24 Troponin I 0.04 H* (< 0.04) ng/mL Liver Function 01/15/19 Range/Units 15:24 Total Bilirubin 0.8 (0.3-1.0) mg/dL AST 22 (13-39) Units/L ALT 29 (7-52) Units/L Alkaline Phosphatase 57 (34-104) Units/L Albumin 3.6 (3.5-5.7) g/dL - ABG Interpretation ABG results: ABG ABG pH 7.33 pH Units (7.32-7.45) 01/12/19 11:52 ABG pCO2 50 mmHg (35-45) H 01/12/19 11:52 ABG pO2 76 mmHg (85-104) L 01/12/19 11:52 ABG O2 Saturation 94 % (95-98) L 01/12/19 11:52 - Impressions Impressions Chest X-Ray 01/15/19 11:40 IMPRESSION: No acute cardiopulmonary process. D/ / Christophe Brody MD / Christophe Brody MD Interpreting Provider: Christophe Brody MD Consult Discharge Plan - Plan Referrals: Ratna Arambula, UTILITIES MANAGER [Primary Care Provider] - (2) CHF (congestive heart failure) Qualifiers: Heart failure type: systolic Heart failure chronicity: unspecified Qualified Code(s): I50.20 - Unspecified systolic (congestive) heart failure (8) Diabetes mellitus Qualifiers: Diabetes mellitus type: type 2 Diabetes mellitus field agronomist insulin use: without field agronomist use Diabetes mellitus complication status: without complication Qualified Code(s): E11.9 - Type 2 diabetes mellitus without complications
[2019-01-16] MEDS: Azithromycin 500 MG in D5% in Water 250 ML IVPB SCH (13:51)
[2019-01-16] MEDS: Ibuprofen 400 MG TABLET PO PRN (13:52)
--- NOTE | 2019-01-16 16:31 | Electrocardiograph Report ---
[place] [id number] Test Date: 2019-01-15 Pat Name: Dimas Parker Department: 111 Room: 2NE27 Gender: M Reexaminer: : 1940 Requested By: Prema Montero Order Number: [id number] Reading MD: Geni You Measurements Intervals [place] Rate: 70 P: MD: 0 QRS: 36 QRSD: 96 T: 74 QT: 402 QTc: 422 Interpretive Statements ATRIAL FIBRILLATION POSSIBLE INFERIOR MYOCARDIAL INFARCTION [30 ms Q WAVE IN II/aVF], PROBABLY OLD MODERATE T-WAVE ABNORMALITY, CONSIDER LATERAL ISCHEMIA [-0.1+ mV T WAVE IN I/aVL/V5/V6] Electronically Signed On 01-16-2019 16:29:33 EDT by Geni You
[2019-01-16] MEDS ORDERED: Melatonin 3 MG TABLET PO PRN (23:18)
[2019-01-17 05:33] LABS: Basophils % 0.1 %; Eosinophils # 0.1 K/mcL (0.0-0.6); Eosinophils % 0.8 %; Hematocrit 34.7 % (37.5-50.1); Hemoglobin 11.3 g/dL (12.9-16.9); Immature Granulocytes % 1.5 % (0-4); Lymphocytes # 1.7 K/mcL (0.6-4.6); Lymphocytes % 9.6 %; Mean Corpuscular HGB Conc 32.6 g/dL (31.6-35.5); Mean Corpuscular Hemoglobin 30.3 pg (28.0-33.3); Monocytes # 1.4 K/mcL (0.0-1.3); Neutrophils # 13.9 K/mcL (1.6-8.9); Platelet Count 262 K/mcL (140-400); Red Blood Count 3.73 M/mcL (4.19-5.50); White Blood Count 17.4 K/mcL (4.3-11.1)
[2019-01-17 05:43] LABS: BUN/Creatinine Ratio 27 (6-26); Blood Urea Nitrogen 29 mg/dL (8-23); Calcium 9.1 mg/dL (8.6-10.3); Carbon Dioxide 27 mEq/L (23-29); Chloride 101 mEq/L (98-107); Glucose 145 mg/dL (70-105); Osmolality,Calculated 286 (280-300); Potassium 4.3 mEq/L (3.5-5.1); Sodium 134 mEq/L (136-145); eGFR For African Americans > 60 (> 60); eGFR For Non-African Americans > 60 (> 60)
[2019-01-17] MEDS ORDERED: Regadenoson 0.4 MG/5 ML SYRINGE IVP ONE (06:22)
[2019-01-17] MEDS: Levalbuterol Neb 1.25 MG/3 ML IH SCH ×3 (07:14→15:38)
[2019-01-17] MEDS: Ipratropium Neb 0.5 MG NEBULIZER IH SCH ×3 (07:14→15:37)
[2019-01-17] MEDS: Insulin LISPRO 300 UNITS/3 ML VIAL SQ SCH ×2 (09:34→11:58)
[2019-01-17] MEDS: *HR* Dabigatran 150 MG CAPSULE PO SCH (09:40)
[2019-01-17] MEDS: Diltiazem CD (24hr) 180 MG CAPSULE PO SCH (09:40)
[2019-01-17] MEDS: Aspirin Enteric Coated 81 MG Tablet PO SCH (09:40)
[2019-01-17] MEDS: Metoprolol 100 MG TABLET PO SCH (09:41)
[2019-01-17] MEDS: predniSONE 20 MG TABLET PO SCH (09:41)
[2019-01-17] MEDS: *HR* OxyCODONE Immed Rel 5 MG TABLET PO PRN (09:46)
[2019-01-17 11:23] VITALS: BP 108/68
--- NOTE | 2019-01-17 14:19 | Cardiology Progress Note ---
Date of Encounter: 01/17/19 Time of Encounter: 14:15 Assessment and Plan (1) Abnormal stress test Current Visit: Yes Status: Acute TTE 01/12/19: LVEF 45%. Normal LV chamber size, wall thickness. Segmental left ventricular systolic dysfunction. Unclear chronicity. Nuclear stress test completed given CMP and episode of chest pain. Extensive inferior/inferolateral with mild apical angelica-infarct ischemia on perfusion study (fixed inferior/inferolateral/inferoseptal perfusion defect of large size and severe intensity, reversible apical perfusion defect of small size and moderate intensity, SDS=4). Stress LVEF 44%. Given his renal carcinoma with ongoing work-up and no recurrent chest pain, would recommend medical management. No high risk findings on stress test. Continue ASA, Statin, BB. Will add Imdur 30mg daily. Recommend follow-up in 2-3 weeks with established conveyor monitor, Dr. Coles, at [facility]. Plan discussed with pt, , and daughter, who are all in agreement. Cardiology signing off. Reconsult PRN. (2) Atrial fibrillation with RVR Current Visit: Yes Status: Acute Known hx of A-Fib anticoagulated on Pradaxa. Home meds included Cardizem CD 240mg daily and Toprol XL 100mg daily. Presented with respiratory failure and COPD exacerbation, likely contributing to RVR. Have increased Cardizem CD 360mg to daily. Currently on Lopressor 100mg BID. Now rate controlled. 12 hr tele AVG HR 84, A-Fib. Cardiology signing off. Reconsult PRN. Recommend follow-up in 2-3 weeks with his established conveyor monitor Dr. Coles at [facility]. (3) CAD (coronary artery disease) Current Visit: No Status: Chronic Hx CAD and CABG. Continue ASA, BB. Started Statin. Will add Imdur 30mg daily. Qualifiers: Coronary Disease-Associated Artery/Lesion type: unspecified vessel or lesion type [place] vs. transplanted heart: [place] heart Associated angina: angina presence unspecified Qualified Code(s): I25.10 - Atherosclerotic heart disease of [place] coronary artery without angina pectoris (4) Elevated troponin Current Visit: Yes Status: Acute Troponin negative, then 0.07, 0.08, 0.07, 0.04--flat and adynamic in setting of A-Fib RVR, respiratory failure and COPD exacerbation. Likely demand ischemia, nondiagnostic for ACS. TTE EF 45%. No prior to compare, follows in [place]. Stress test as above. (5) Chest pain Current Visit: Yes Status: Acute 1 episode of chest pain 01/15. No recurrence. Mild troponins likely demand ischemia. TTE EF 45%--unclear chronicity. Nuclear stress test findings as above. Qualifiers: Chest pain type: unspecified Qualified Code(s): R07.9 - Chest pain, unspecified Discussion w patient/family: The assessment and plan as outlined above was discussed with the patient and/or family members who expressed understanding and agreement. All questions were answered. Thank you for involving us in the care of your patient. Please call with any questions. I will discuss all the above with Dr. You and make changes as necessary. Subjective Principal diagnosis: s/p right total hip Interval history: Pt denies acute complaints. No recurrent chest pain. Dyspnea has improved. Objective Vital Signs, Last 4 Hours Temp Pulse Resp BP Pulse Ox 01/17/19 11:19 97.7 F 77 14 108/68 99 01/17/19 10:52 16 98 Vital Signs Temp Pulse Resp BP Pulse Ox 01/17/19 11:19 97.7 F 77 14 108/68 99 01/17/19 10:52 16 98 01/17/19 07:14 14 97 01/17/19 07:06 97.7 F 82 14 133/71 96 01/17/19 05:13 97.6 F 89 17 128/70 96 01/16/19 23:38 86 18 128/72 97 01/16/19 20:12 16 96 01/16/19 19:57 96 01/16/19 19:50 97.7 F 103 19 125/80 98 01/16/19 16:40 97.6 F 90 20 115/65 97 01/16/19 15:46 17 93 Intake and Output 01/16/19 01/17/19 01/17/19 23:59 07:59 15:59 Intake Total 0 / 0 0 / 0 Output Total 425 / 425 0 / 425 Balance -425 / -425 0 / -425 Intake: Oral 0 / 0 0 / 0 Output: Urine 425 / 425 0 / 425 Other: Meal Lunch Percent of Meal Consumed 0% Weight 84.2 kg Blood Glucose* 282 135 148 Patient Weight 01/17/19 23:59 Weight 84.2 kg General: Conversant, No Apparent Distress HEENT: Atraumatic, Normocephaly, Mucus Membranes Moist Neck: No JVD, Normal carotid pulses Cardiac: Other (irregularly irregular rhythm) Lungs: Normal Breath Sounds, No Wheeze, Rales, Rhonchi Neuro: Alert and responsive, No focal deficits noted Abdomen: Soft, Non-Tender Skin: No rashes noted on visualized skin Musculoskeletal: No Chest Wall Tenderness Extremities: Other (mild BLE edema) Results 01/17/19 04:50 01/17/19 04:50 Lab Results 01/17/19 01/17/19 04:50 04:50 WBC 17.4 H Hgb 11.3 L Hct 34.7 L Plt Count 262 Sodium 134 L Potassium 4.3 Chloride 101 Carbon Dioxide 27 BUN 29 H Creatinine 1.06 Glucose 145 H Calcium 9.1 Short CBC 01/17/19 Range/Units 04:50 WBC 17.4 H (4.3-11.1) K/mcL Hgb 11.3 L (12.9-16.9) g/dL Hct 34.7 L (37.5-50.1) % Plt Count 262 (140-400) K/mcL Neutrophils # 13.9 H (1.6-8.9) K/mcL BMP 01/17/19 Range/Units 04:50 Sodium 134 L (136-145) mEq/L Potassium 4.3 (3.5-5.1) mEq/L Chloride 101 (98-107) mEq/L Carbon Dioxide 27 (23-29) mEq/L BUN 29 H (8-23) mg/dL Creatinine 1.06 (0.70-1.30) mg/dL Glucose 145 H (70-105) mg/dL Calcium 9.1 (8.6-10.3) mg/dL Active Medications Aspirin (Aspirin Ec) 81 mg PO DAILY [facility] Stop: 07/15/19 09:01 Last Admin: 01/17/19 09:40 Dose: 81 mg Documented by: Dabigatran (Pradaxa) 150 mg PO BID [facility]; Protocol Stop: 07/14/19 21:01 Last Admin: 01/17/19 09:40 Dose: 150 mg Documented by: Dextrose/Water (Dextrose 50% (Syg)) 25 ml IVP AD PRN PRN Reason: Hypoglycemia Stop: 07/14/19 12:46 Diltiazem HCl (Cardizem Cd) 360 mg PO DAILY [facility] Stop: 07/18/19 09:01 Last Admin: 01/17/19 09:40 Dose: 360 mg Documented by: Docusate Sodium (Colace) 100 mg PO BID [facility]; Protocol Stop: 07/14/19 21:01 Last Admin: 01/17/19 09:40 Dose: 100 mg Documented by: Glucagon (Glucagen) 1 mg IM ONCE PRN PRN Reason: Hypoglycemia Stop: 07/14/19 12:46 Glucose (Gluctose) 15 gm PO ONCE PRN PRN Reason: Hypoglycemia Stop: 07/14/19 12:46 Glucose (Gluctose) 30 gm PO ONCE PRN PRN Reason: Hypoglycemia Stop: 07/14/19 12:46 Guaifenesin (Robitussin Liq) 200 mg PO Q6HR PRN PRN Reason: Cough Stop: 07/17/19 01:40 Last Admin: 01/15/19 11:06 Dose: 200 mg Documented by: Dextrose (Dextrose 5%) 1,000 mls @ 100 mls/hr IVC .Q10H PRN PRN Reason: HYPOGLYCEMIA Stop: 07/14/19 12:46 Ibuprofen (Motrin) 400 mg PO Q8HR PRN PRN Reason: FEVER/PAIN Stop: 07/16/19 18:26 Last Admin: 01/16/19 13:52 Dose: 400 mg Documented by: Insulin Human Lispro (Humalog) 0 units SQ ACHS [facility]; Protocol Stop: 07/16/19 11:31 Last Admin: 01/17/19 11:58 Dose: Not Given Documented by: Ipratropium [place] (Atrovent Neb) 0.5 mg IH Q4HWA [facility] Stop: 07/14/19 13:01 Last Admin: 01/17/19 10:51 Dose: 0.5 mg Documented by: Levalbuterol HCl (Xopenex) 1.25 mg IH Q4HWA [facility] Stop: 07/14/19 13:01 Last Admin: 01/17/19 10:51 Dose: 1.25 mg Documented by: Melatonin (Melatonin) 1.5 mg PO HS PRN PRN Reason: Insomnia Stop: 07/18/19 23:19 Last Admin: 01/16/19 23:38 Dose: 1.5 mg Documented by: Metoprolol Tartrate (Lopressor) 100 mg PO BID [facility] Stop: 01/25/19 21:01 Last Admin: 01/17/19 09:41 Dose: 100 mg Documented by: Naloxone HCl (Narcan) 0.4 mg IVP Q2MPRN PRN PRN Reason: SEE COMMENTS Stop: 07/14/19 12:17 Ondansetron HCl (Zofran) 4 mg IVP Q8HR PRN PRN Reason: Nausea And Vomiting Stop: 07/14/19 12:17 Oxycodone HCl (Roxicodone) 5 mg PO Q6HR PRN; Protocol PRN Reason: Severe Pain Stop: 07/14/19 12:29 Last Admin: 01/17/19 09:46 Dose: 5 mg Documented by: Prednisone (Prednisone) 40 mg PO DAILY [facility] Stop: 01/18/19 09:01 Last Admin: 01/17/19 09:41 Dose: 40 mg Documented by: - Imaging and Cardiology Stress Test: report reviewed Echo: report reviewed - EKG Interpretation EKG results cardiology: other (12 hr tele AVG HR 82, A-Fib) Consult Discharge Plan - Plan Referrals: Ratna Arambula, DONATION WORKER [Primary Care Provider] -
[2019-01-17] MEDS ORDERED: Isosorbide MONOnitrate (24 HR) 30 MG TAB.ER.24H PO SCH (14:25)
--- NOTE | 2019-01-17 14:25 | Discharge Summary ---
Orders not resulted at time of discharge: Pending orders 01/12/19 12:35 Legionella Antigen [RM] Stat Sputum Culture [Culture,Sputum with Gram Stain] [RM] Stat Streptococcal pneumoniae urin antigen [S. Pneumoniae Antigen] [RM] Stat Date of Encounter: 01/17/19 Time of Encounter: 14:27 - Discharge Diagnosis (1) Atrial fibrillation with RVR Priority: Primary Status: Acute (2) CHF (congestive heart failure) Priority: Secondary Status: Acute Qualifiers: Heart failure type: systolic Heart failure chronicity: unspecified Qualified Code(s): I50.20 - Unspecified systolic (congestive) heart failure (3) Acute and chronic respiratory failure with hypoxia Priority: Secondary Status: Acute (4) Renal cell carcinoma of left kidney Priority: Secondary Status: Chronic (5) Metastatic renal cell carcinoma to bone Priority: Secondary Status: Chronic (6) History of right hip hemiarthroplasty Priority: Secondary Status: Chronic (7) COPD exacerbation Priority: Secondary Status: Acute (8) Diabetes mellitus Priority: Secondary Status: Chronic Qualifiers: Diabetes mellitus type: type 2 Diabetes mellitus rodent exterminator insulin use: without rodent exterminator use Diabetes mellitus complication status: without complication Qualified Code(s): E11.9 - Type 2 diabetes mellitus without complications Hospital course: Mr. Parker is a 78 year old male with a past medical history of hypertension, diabetes type 2, atrial fibrillation on the dabigatran, pacemaker, CAD, COPD on home O2, continuous tobacco use, PVD, RA, right total hip repair on January 05 for lytic lesions from left renal cell carcinoma, with metastases to bone and multiple lung nodules presumed metastasis from the renal cell carcinoma. Patient presented with worsening shortness of breath. He was found to be in A. fib with RVR and COPD exacerbation. His home Cardizem and metoprolol doses have been changed to cardiology. Inpatient stress test showed an abnormality but gained to be low to moderate risk of moment and cardiology would like to follow- up as outpatient. Discharge discussed with: patient, family, nurse, case management - Time Spent with Patient Total time spent providing and/or coordinating discharge services: Time spent: Greater than 30 minutes (50 minutes) - Discharge Medications Prescriptions: New Diltiazem CD (24hr) [Cardizem CD] 360 mg PO DAILY 30 Days #60 cap.er.24h Isosorbide MONOnitrate (24 HR) [Imdur] 30 mg PO DAILY 30 Days #30 tab.er.24h Metoprolol [Lopressor] 100 mg PO BID 30 Days #60 tablet predniSONE [PredniSONE] 40 mg PO DAILY #3 tablet GuaiFENesin Liq [Robitussin Liq] 200 mg PO Q6HR PRN udc PRN Reason: Cough Continued Docusate [Colace] 100 mg PO BID 5 Days #10 capsule OxyCODONE Immed Rel [Roxicodone 5 MG] 5 mg PO Q6HR PRN 5 Days #20 tablet PRN Reason: Severe Pain Aspirin [Adult Aspirin] 81 mg PO DAILY Dabigatran Etexilate Mesylate [Pradaxa] 150 mg PO BID GlipiZIDE XL (24 HR) [Glucotrol XL] 10 mg PO DAILY Ipratropium Neb [Atrovent Neb] 0.5 mg IH Q6HR PRN PRN Reason: Shortness Of Breath Levalbuterol Neb [Xopenex Neb] 1.25 mg IH Q8H PRN PRN Reason: Shortness Of Breath Losartan Potassium 100 mg PO DAILY Discontinued Diltiazem CD (24hr) [Cardizem CD] 240 mg PO DAILY Metoprolol Succinate 100 mg PO HS 30 Days #30 tab.er.24h Home Medications: Aspirin [Adult Aspirin] 81 mg PO DAILY 01/05/19 [History] Dabigatran Etexilate Mesylate [Pradaxa] 150 mg PO BID 01/05/19 [History] Docusate [Colace] 100 mg PO BID 5 Days #10 capsule 01/05/19 [Rx] GlipiZIDE XL (24 HR) [Glucotrol XL] 10 mg PO DAILY 01/05/19 [History] Ipratropium Neb [Atrovent Neb] 0.5 mg IH Q6HR PRN 01/05/19 [History] Levalbuterol Neb [Xopenex Neb] 1.25 mg IH Q8H PRN 01/05/19 [History] Losartan Potassium 100 mg PO DAILY 01/05/19 [History] OxyCODONE Immed Rel [Roxicodone 5 MG] 5 mg PO Q6HR PRN 5 Days #20 tablet 01/05/19 [Rx] Diltiazem CD (24hr) [Cardizem CD] 360 mg PO DAILY 30 Days #60 cap.er.24h 01/17/19 [Rx] GuaiFENesin Liq [Robitussin Liq] 200 mg PO Q6HR PRN udc 01/17/19 [Rx] Isosorbide MONOnitrate (24 HR) [Imdur] 30 mg PO DAILY 30 Days #30 tab.er.24h 01/17/19 [Rx] Metoprolol [Lopressor] 100 mg PO BID 30 Days #60 tablet 01/17/19 [Rx] predniSONE [PredniSONE] 40 mg PO DAILY #3 tablet 01/17/19 [Rx] Allergies/Adverse Reactions: Allergy/AdvReac Type Severity Reaction Status Date / Time albuterol Allergy See Verified 01/05/19 13:07 Comments heparin Allergy See Verified 01/05/19 13:22 Comments Date of admission: 01/12/19 12:10 Primary care physician: Ratna Arambula CNP Consults: 01/12/19 12:19 Consult to Oncology Hematology [CONS] Routine Consulting Provider: Vinay Marks Reason for Consult: pt of Dr Marks here w acute resp failure,afib rvr, family pt requesting onc input regarding prognosis in help to determine aggressiveness of care and if lung findings could be contributing to resp failure, was to f/u outpt 01/12/19 Call Completed: Yes 01/12/19 12:21 Consult to Pulmonology [CONS] Routine Consulting Provider: [facility] [place] Reason for Consult: acute on chornic res p failure, possible pna, vs copde exac, PE ruled out at OSH, known lung nodules/renal cancer; eval for further w/u /treatment, resp support Call Completed: Yes 01/12/19 12:24 Consult to Orthopedic Surgery [CONS] Routine Consulting Provider: Chico Carr Reason for Consult: pt s/p right total hip 01/05, here w acute resp failure and afib rvr, input re if ok to resume pradaxa, pt also due to see in outpt office today Call Completed: Yes 01/14/19 18:03 Consult to Cardiology [CONS] Routine Comment: Consulting Provider: Cardiology [place] Reason for Consult: Afib with RVR Call Completed: Yes 01/15/19 10:55 Consult to Occupational Therapy [CONS] Routine Comment: Evaluate, develop and implement POC Reason for Consult: Recent Rt hip surgery. Deconditioning Does patient have active BEDREST order?: No Is patient medically & hemodynamically stable?: Yes Consult to Physical Therapy [CONS] Routine Comment: Evaluate, develop and implement POC Reason for Consult: Recent Rt hip surgery. Deconditioning Does patient have active BEDREST order?: No Is patient medically & hemodynamically stable?: Yes - Constitutional Vitals: Temp Pulse Resp BP Pulse Ox 36.5 C 77 14 108/68 99 01/17/19 11:19 01/17/19 11:19 01/17/19 11:19 01/17/19 11:01/17/19 11:19 Exam: GENERAL: Not in distress. Alert and Oriented HEENT: EOMI, PERRLA MOUTH: Moist oral mucosa NECK:No JVD, No lymph nodes. CHEST AND LUNGS: Few wheezes bilaterally. No crackles. On low-flow oxygen HEART: S1 and S2 normal, irregular rhythm, no murmurs ABDOMEN: Soft, nontender, no organomegaly SKIN: Normal color, no rashes, no lesions EXTREMITIES: No deformity, no edema, no tenderness, no joint swelling or clubbing NEUROLOGICAL: Normal cognition, normal motor and sensory exam. - Patient Status Disposition: Home Health Service Condition: Fair Functional capacity at discharge: independent ambulation Overall status at discharge: patient is progressing back to baseline - Discharge Instructions Follow Up With: Ratna Arambula REPAIR CAMERAMAN [Primary Care Provider] - Additional Instructions: Recommend follow-up in 2-3 weeks with his established manager rehab Dr. Coles at [facility]. - Diet and Activity Activity: increase activity as tolerated, wear oxygen at all times Diet: diabetic diet
--- NOTE | 2019-01-17 14:50 | Physician Discharge Referral ---
Home Health/Hosp Referral Info Transfer to: Home Health Provider in Charge Post Discharge: PCP - Diagnosis (1) Atrial fibrillation with RVR Priority: Primary Status: Acute (2) CHF (congestive heart failure) Priority: Secondary Status: Acute (3) Acute and chronic respiratory failure with hypoxia Priority: Secondary Status: Acute (4) Renal cell carcinoma of left kidney Priority: Secondary Status: Chronic (5) Metastatic renal cell carcinoma to bone Priority: Secondary Status: Chronic (6) History of right hip hemiarthroplasty Priority: Secondary Status: Chronic (7) COPD exacerbation Priority: Secondary Status: Acute (8) Diabetes mellitus Priority: Secondary Status: Chronic - Respiratory Orders Oxygen / L per min (3L/min) Smoking Cessation: Smoking cessation has been advised. For more information, call the [place] Tobacco Quit Line at 9-161-TJPC-NOW. - Transfer Medications Prescriptions: Diltiazem CD (24hr) [Cardizem CD] 360 mg PO DAILY 30 Days #60 cap.er.24h Isosorbide MONOnitrate (24 HR) [Imdur] 30 mg PO DAILY 30 Days #30 tab.er.24h Metoprolol [Lopressor] 100 mg PO BID 30 Days #60 tablet predniSONE [PredniSONE] 40 mg PO DAILY #3 tablet Home Medications: Aspirin [Adult Aspirin] 81 mg PO DAILY 01/05/19 [History] Dabigatran Etexilate Mesylate [Pradaxa] 150 mg PO BID 01/05/19 [History] Docusate [Colace] 100 mg PO BID 5 Days #10 capsule 01/05/19 [Rx] GlipiZIDE XL (24 HR) [Glucotrol XL] 10 mg PO DAILY 01/05/19 [History] Ipratropium Neb [Atrovent Neb] 0.5 mg IH Q6HR PRN 01/05/19 [History] Levalbuterol Neb [Xopenex Neb] 1.25 mg IH Q8H PRN 01/05/19 [History] Losartan Potassium 100 mg PO DAILY 01/05/19 [History] OxyCODONE Immed Rel [Roxicodone 5 MG] 5 mg PO Q6HR PRN 5 Days #20 tablet 01/05/19 [Rx] Diltiazem CD (24hr) [Cardizem CD] 360 mg PO DAILY 30 Days #60 cap.er.24h 01/17/19 [Rx] GuaiFENesin Liq [Robitussin Liq] 200 mg PO Q6HR PRN udc 01/17/19 [Rx] Isosorbide MONOnitrate (24 HR) [Imdur] 30 mg PO DAILY 30 Days #30 tab.er.24h 01/17/19 [Rx] Metoprolol [Lopressor] 100 mg PO BID 30 Days #60 tablet 01/17/19 [Rx] predniSONE [PredniSONE] 40 mg PO DAILY #3 tablet 01/17/19 [Rx] Allergies/Adverse Reactions: Allergy/AdvReac Type Severity Reaction Status Date / Time albuterol Allergy See Verified 01/05/19 13:07 Comments heparin Allergy See Verified 01/05/19 13:22 Comments Certification: Further, I certify that my clinical findings support that this patient is homebound (i.e. absences from home require considerable and taxing effort and are for medical reasons or caodaism services or infrequently or short duration when for other reasons) because: Homebound Reason: Severity of cardiac or pulmonary status limits activity tolerance Attestation: My signature below is to certify that this patient is under my care and that I, or nurse practitioner, or a physician's special education teaching assistant working with me, has a [id number] encounter with this patient.
== END 2019-01-17 17:08 | disposition home health service (06) | DRG 308 ==
LOC: 2NENU → SUATTDRO 12:10
PROVIDERS: ADMIT Internal Medicine; ATTEND Internal Medicine

== ENCOUNTER 2019-02-01 14:39 | Inpatient (IN) ==
[2019-02-01] MEDS ORDERED: methylPREDNISolone 125 MG/2 ML VIAL IVP ONE (15:03)
[2019-02-01] MEDS ORDERED: Levalbuterol Neb 1.25 MG/3 ML IH STA (15:03)
[2019-02-01] MEDS ORDERED: Isovue-370 500 ML BOTTLE IVP ONE (15:04)
--- NOTE | 2019-02-01 15:04 | Emergency Department Note ---
Disposition Clinical Impression: ARDS (adult respiratory distress syndrome) Disposition: Admitted As Inpatient Condition: Fair Time of Disposition: 18:39 General Adult HPI - General Chief complaint: ED Shortness of Breath/Dyspnea Stated complaint: ELIAZAR Time Seen by Provider: 02/01/19 14:48 Source: patient, EMS Mode of arrival: EMS Limitations: no limitations Nursing Notes Reviewed: Yes Vital Signs Reviewed: Yes - History of Present Illness HPI Narrative: Patient is a 70-year-old male presenting with shortness of breath. Patient with known history of renal cell carcinoma, recently diagnosed in December with metastasis to the bone as well as the lungs. Patient had a right hip replace ment by Dr. Carr on 01/05/2019. Patient was receiving chemotherapy treatment just prior to arrival, following his chemotherapy treatment he began to have significant shortness of breath, he was given 20 mg of IV Lasix as well as 500 mL's of normal saline. He was also given a DuoNeb with no significant improvement. EMS was called and brought to the ER. Per patient's family he has been having increased shortness of breath with any type of exertion for the past few days worse over the past 24 hours. States he has not had any fever, cough or productive sputum. He denies any current chest pain. Does have history of atrial fibrillation, currently on multiple medications including anticoagulation medications, Pradaxa. He has been taking this as prescribed. Per family they are also very concerned as he has seemed somewhat confused recently, they state he is more agitated than usual and this is not his baseline. He denies any focal weakness, numbness or tingling. They state that he has been able to ambulate without difficulty. Pain Scale: 0 - Related Data Home Medications Medication Instructions Recorded Confirmed Aspirin [Adult Aspirin] 81 mg PO DAILY 01/05/19 02/01/19 Dabigatran Etexilate Mesylate 150 mg PO BID 01/05/19 02/01/19 [Pradaxa] GlipiZIDE XL (24 HR) [Glucotrol XL] 10 mg PO DAILY 01/05/19 02/01/19 Ipratropium Neb [Atrovent Neb] 0.5 mg IH Q6HR PRN 01/05/19 02/01/19 Levalbuterol Neb [Xopenex Neb] 1.25 mg IH Q8H PRN 01/05/19 02/01/19 Losartan Potassium 100 mg PO DAILY 01/05/19 02/01/19 Previous Rx's Medication Instructions Recorded Docusate [Colace] 100 mg PO BID 5 Days #10 capsule 01/05/19 OxyCODONE Immed Rel [Roxicodone 5 5 mg PO Q6HR PRN 5 Days #20 tablet 01/05/19 MG] Diltiazem CD (24hr) [Cardizem CD] 360 mg PO DAILY 30 Days #60 01/17/19 cap.er.24h Metoprolol [Lopressor] 100 mg PO BID 30 Days #60 tablet 01/17/19 Allergies Allergy/AdvReac Type Severity Reaction Status Date / Time albuterol Allergy See Verified 01/05/19 13:07 Comments heparin Allergy See Verified 01/05/19 13:22 Comments All systems ED: reviewed and negative except as stated. Review of Systems: As Per HPI Constitutional: Denies: fever, chills ENT ED: Denies: congestion Cardiovascular: Reports: dyspnea on exertion. Denies: chest pain, palpitations Respiratory: Reports: dyspnea. Denies: cough, wheezes, sputum production Gastrointestinal: Denies: abdominal pain, nausea, vomiting Genitourinary: Denies: urgency, dysuria Integumentary: Denies: rash Neurological: Reports: confusion. Denies: headache, weakness Endocrine: Reports: fatigue Hematological/Lymphatic: Denies: easy bleeding Past Medical History - Past Medical History Medical history: Reports: cancer, CHF, COPD, coronary artery disease, diabetes, hypertension Surgical history: Reports: cancer surgery, cataract, hip replacement (01/05/19) Psychiatric history: Reports: no psych history - Social History Smoking Status: Current every day smoker Smokeless Tobacco Status: No Alcohol use: Reports: occasionally Drug use: Reports: none Physical Exam - General Limitations: no limitations General appearance: alert, anxious, other (Tripoding on initial evaluation) - Head Head exam: atraumatic, normocephalic, normal inspection - ENT ENT exam: mucous membranes dry - Neck Neck exam: Present: normal inspection, full ROM, trachea midline - Chest Chest inspection: Present: normal inspection, symmetric chest wall rise - Respiratory Respiratory exam: Present: respiratory distress, prolonged expiratory phase (With diffuse wheezing and crackles at the bases) - Cardiovascular Cardiovascular exam: Present: tachycardia, irregular rhythm - Abdominal Exam Abdominal exam: Present: soft, Non-Tender. Absent: tenderness, distention, guarding, rebound, rigidity - Extremities Exam Extremities exam: Present: normal inspection, full ROM. Absent: tenderness, pedal edema - Expanded Lower Extremity Exam Neurovascular/Tendon exam: Absent: motor deficit, sensory deficit, tendon deficit - Neurological Exam Neurological exam: Present: alert, oriented X3 - Psychiatric Psychiatric exam: Present: normal affect, anxious - Skin Skin exam: Present: warm, dry, intact, normal color. Absent: rash, diaphoresis Course Vital Signs Temperature 97.6 F 02/01/19 14:42 Pulse Rate 110 02/01/19 14:42 Respiratory Rate 22 02/01/19 14:42 Blood Pressure 132/67 02/01/19 14:42 O2 Sat by Pulse Oximetry 84 02/01/19 14:42 Temperature 97.6 F 02/01/19 14:42 Pulse Rate 117 02/01/19 17:47 Respiratory Rate 22 02/01/19 17:47 Blood Pressure 142/73 02/01/19 17:47 O2 Sat by Pulse Oximetry 97 02/01/19 17:47 Oxygen Delivery Oxygen Delivery Bipap Medical Decision Making - [facility] Narrative Medical decision making narrative: Patient is a 70-year-old male who is presenting for acute respiratory distress. Patient has known history of COPD, hypertension, hyperlipidemia, renal cell carcinoma with metastasis, undergoing current chemotherapy treatment. Just prior to arrival, the patient was receiving chemotherapy treatment. On initial evaluation, patient is tripoding and in respiratory distress, he does have wheezing bilaterally with few crackles to the bases, he is currently on 4 L nasal cannula satting at 92-94%. He is active retractions on examination. Patient was given DuoNeb 3, prior to arrival he was given DuoNeb as well as Lasix 20 mg IV. He was also given 500 mL bolus prior to arrival while at the oncology office. Patient was given DuoNeb 3 as well as Solu-Medrol. He was also placed on BiPAP given significant respiratory distress. He did tolerate the BiPAP appropriately, therefore we will continue to hold off on further respiratory measures. Laboratory work including CBC, BMP as well as troponin and pro- calcitonin was ordered. Patient has no leukocytosis, BMP relatively unremarkable, pro-Ishan is slightly elevated at 0.17. Given concern for acute shortness of breath as well as multiple risk factors, patient is at moderate to high risk for pulmonary embolus and, therefore a CTA of the chest was performed. Per patient's concern as well as family for possible confusion and agitation, CT head will also be performed. EKG shows no acute ischemic changes, patient does appear to be in atrial fibril lation with a rate of 100-110, we will hold off on further fluids given concern for EF and pulmonary edema. Chest x-ray shows vascular congestion without opacification. Troponin is within normal limits. Lactic acid is 2.4. CTA shows no sign of pulmonary embolism, continued pulmonary nodules with concern for possible primary lung cancer. Given patient's immune compromised state given chemotherapy treatment, as well as slightly elevated pro-calcitonin and elevated lactic acid, he was of the patient would be appropriate for initial broad-spectrum treatment given acute respiratory distress, when initiate vancomycin, Levaquin and Zosyn. Anticipate this will be stepped down upon admission. I did have extensive conversation with the patient as well as family regarding need for admission. At one point in time during his hospital stay here in the ER, patient became very agitated, requesting to leave, I was able to talk to the patient as well as family regarding need for admission and disease state. Patient understands and at this point in time is agreeable to stay for admission. - Medical Records Medical records reviewed: Yes I reviewed the patient's medical records. - Lab Data Lab results reviewed: Yes I reviewed the patient's lab results. Result diagrams: 02/01/19 14:57 02/01/19 14:57 Lab Results 02/01/19 02/01/19 02/01/19 Range/Units 14:57 14:57 14:57 WBC 8.8 (4.3-11.1) K/mcL RBC 4.15 L (4.19-5.50) M/mcL Hgb 12.3 L (12.9-16.9) g/dL Hct 38.1 (37.5-50.1) % MCV 91.8 (83.0-100.0) fL MCH 29.6 (28.0-33.3) pg MCHC 32.3 (31.6-35.5) g/dL RDW 13.7 (11.5-14.5) % Plt Count 195 (140-400) K/mcL MPV 10.9 (9.4-12.4) fL Immature Gran % 0.5 (0-4) % Seg Neutrophils % 65.4 % Lymphocytes % 11.8 % Monocytes % 8.3 % Eosinophils % 13.4 % Basophils % 0.6 % Neutrophils # 5.8 (1.6-8.9) K/mcL Lymphocytes # 1.0 (0.6-4.6) K/mcL Monocytes # 0.7 (0.0-1.3) K/mcL Eosinophils # 1.2 H (0.0-0.6) K/mcL Basophils # 0.1 (0.0-0.2) K/mcL Sample Site ABG pH (7.32-7.45) pH Units ABG pCO2 (35-45) mmHg ABG pO2 (85-104) mmHg ABG HCO3 (21-27) mEq/L ABG Total CO2 (20-26) mEq/L ABG O2 Saturation (95-98) % ABG Base Excess (-2 to 3) mEq/L Srikanth Test O2 Delivery Device Inspired O2 (1-15=lpm [id number]=%) Sodium 136 (136-145) mEq/L Potassium 4.7 (3.5-5.1) mEq/L Chloride 100 (98-107) mEq/L Carbon Dioxide 28 (23-29) mEq/L BUN 16 (8-23) mg/dL Creatinine 1.27 (0.70-1.30) mg/dL Est GFR ( Amer) > 60 (> 60) Est GFR (Non-Af Amer) 55 L (> 60) BUN/Creatinine Ratio 13 (6-26) Glucose 204 H (70-105) mg/dL Calculated Osmolality 289 (280-300) Lactic Acid 2.4 H (0.5-2.2) mmol/L Calcium 9.6 (8.6-10.3) mg/dL Troponin I < 0.03 (< 0.04) ng/mL B-Natriuretic Peptide (Less than 100) pg/mL Procalcitonin (0.00-0.15) ng/mL 02/01/19 02/01/19 02/01/19 Range/Units 14:57 14:57 15:10 WBC (4.3-11.1) K/mcL RBC (4.19-5.50) M/mcL Hgb (12.9-16.9) g/dL Hct (37.5-50.1) % MCV (83.0-100.0) fL MCH (28.0-33.3) pg MCHC (31.6-35.5) g/dL RDW (11.5-14.5) % Plt Count (140-400) K/mcL MPV (9.4-12.4) fL Immature Gran % (0-4) % Seg Neutrophils % % Lymphocytes % % Monocytes % % Eosinophils % % Basophils % % Neutrophils # (1.6-8.9) K/mcL Lymphocytes # (0.6-4.6) K/mcL Monocytes # (0.0-1.3) K/mcL Eosinophils # (0.0-0.6) K/mcL Basophils # (0.0-0.2) K/mcL Sample Site R Radial ABG pH 7.39 (7.32-7.45) pH Units ABG pCO2 46 H (35-45) mmHg ABG pO2 69 L (85-104) mmHg ABG HCO3 28 H (21-27) mEq/L ABG Total CO2 29 H (20-26) mEq/L ABG O2 Saturation 93 L (95-98) % ABG Base Excess 2 (-2 to 3) mEq/L Srikanth Test Positive O2 Delivery Device Cannula Inspired O2 44.0 (1-15=lpm [id number]=%) Sodium (136-145) mEq/L Potassium (3.5-5.1) mEq/L Chloride (98-107) mEq/L Carbon Dioxide (23-29) mEq/L BUN (8-23) mg/dL Creatinine (0.70-1.30) mg/dL Est GFR ( Amer) (> 60) Est GFR (Non-Af Amer) (> 60) BUN/Creatinine Ratio (6-26) Glucose (70-105) mg/dL Calculated Osmolality (280-300) Lactic Acid (0.5-2.2) mmol/L Calcium (8.6-10.3) mg/dL Troponin I (< 0.04) ng/mL B-Natriuretic Peptide 309 H (Less than 100) pg/mL Procalcitonin 0.17 H (0.00-0.15) ng/mL 02/01/19 Range/Units 16:47 WBC (4.3-11.1) K/mcL RBC (4.19-5.50) M/mcL Hgb (12.9-16.9) g/dL Hct (37.5-50.1) % MCV (83.0-100.0) fL MCH (28.0-33.3) pg MCHC (31.6-35.5) g/dL RDW (11.5-14.5) % Plt Count (140-400) K/mcL MPV (9.4-12.4) fL Immature Gran % (0-4) % Seg Neutrophils % % Lymphocytes % % Monocytes % % Eosinophils % % Basophils % % Neutrophils # (1.6-8.9) K/mcL Lymphocytes # (0.6-4.6) K/mcL Monocytes # (0.0-1.3) K/mcL Eosinophils # (0.0-0.6) K/mcL Basophils # (0.0-0.2) K/mcL Sample Site ABG pH (7.32-7.45) pH Units ABG pCO2 (35-45) mmHg ABG pO2 (85-104) mmHg ABG HCO3 (21-27) mEq/L ABG Total CO2 (20-26) mEq/L ABG O2 Saturation (95-98) % ABG Base Excess (-2 to 3) mEq/L Srikanth Test O2 Delivery Device Inspired O2 (1-15=lpm [id number]=%) Sodium (136-145) mEq/L Potassium (3.5-5.1) mEq/L Chloride (98-107) mEq/L Carbon Dioxide (23-29) mEq/L BUN (8-23) mg/dL Creatinine (0.70-1.30) mg/dL Est GFR ( Amer) (> 60) Est GFR (Non-Af Amer) (> 60) BUN/Creatinine Ratio (6-26) Glucose (70-105) mg/dL Calculated Osmolality (280-300) Lactic Acid 1.4 (0.5-2.2) mmol/L Calcium (8.6-10.3) mg/dL Troponin I (< 0.04) ng/mL B-Natriuretic Peptide (Less than 100) pg/mL Procalcitonin (0.00-0.15) ng/mL - Radiology Data Radiology results reviewed: Yes I reviewed the patient's radiology results. Chest X-Ray 02/01/19 14:53 IMPRESSION: No acute process. D/ / Enzo Sanabria MD / Enzo Sanabria MD Interpreting Provider: Enzo Sanabria MD - EKG Data EKG #1 EKG attestation: Yes I reviewed and interpreted this EKG. EKG results narrative: EKG performed at 1453 with ventricular rate of 103, irregularly irregular rhythm with normal axis, no ST segment elevation, depression, lateral lead T-wave changes which is relatively unchanged from prior performed in 2019. Appears overall a flutter versus A. fib. Critical Care Time Critical Care Time: Yes Total Critical Care Time: 65 Attestation: The high probability of a clinically significant, sudden or life threatening deterioration of the cardiovascular and respiratory system(s) required my full and direct attention, intervention and personal management. The aggregate critical care time was 62 minutes. This time is in addition to time spent performing reported procedures but includes the following: x Data Review and interpretation x Patient assessment and monitoring of vital signs x Documentation x Medication orders and management Attestation Statement - Attestation Attestation: I, Meño Mcmillan, examined this patient and my medical decision-making was reviewed with the PERSONAL INJURY PARALEGAL/PA/Advanced Practice Nurse/Resident Physician. I agree with the documented findings, disposition and treatment plan as described except to the extent set forth below. 78-year-old male presents emergency Department with concerns of difficulty in breathing. Patient has a history of COPD and congestive heart failure. They state that he has a history of in congestive heart failure when he goes into atrial fibrillation with RVR. He also has a history of COPD and has wheezing present on the bilateral posterior lung ansari during the exam. Initial exam he is tripoding with respiratory distress and intercostal retractions. He was immediately placed on BiPAP for treatment of his respiratory distress. Family states that he is unable to take albuterol secondary to severe tachycardia as a side effect. Patient was recently diagnosed with metastatic cancer and was admitted for similar symptoms within the past month. Patient had a CTA of the chest which showed likely primary lung cancer, it did not show evidence of a PE. He was started on empiric antibiotics while we are waiting for imaging studies as he has recent diagnosis of cancer and is on chemotherapy. Breathing improved with BiPAP however patient's is still tachycardic with an atrial fibrillation. Initially his heart rate was less than 100 however now it is greater than 100 and up to 120. Family is frustrated with the recent admissions and now that they are back again. Patient will be admitted to the hospitalist for further care and evaluation
[2019-02-01 15:15] LABS: ABG Base Excess 2 mEq/L (-2 to 3); ABG HCO3 28 mEq/L (21-27); ABG Oxygen Saturation 93 % (95-98); ABG PCO2 46 mmHg (35-45); ABG PH 7.39 pH Units (7.32-7.45); ABG PO2 69 mmHg (85-104); ABG TCO2 29 mEq/L (20-26)
[2019-02-01 15:17] LABS: Basophils # 0.1 K/mcL (0.0-0.2); Basophils % 0.6 %; Eosinophils # 1.2 K/mcL (0.0-0.6); Eosinophils % 13.4 %; Hematocrit 38.1 % (37.5-50.1); Hemoglobin 12.3 g/dL (12.9-16.9); Immature Granulocytes % 0.5 % (0-4); Lymphocytes % 11.8 %; Mean Corpuscular HGB Conc 32.3 g/dL (31.6-35.5); Mean Corpuscular Hemoglobin 29.6 pg (28.0-33.3); Mean Corpuscular Volume 91.8 fL (83.0-100.0); Mean Platelet Volume 10.9 fL (9.4-12.4); Monocytes # 0.7 K/mcL (0.0-1.3); Monocytes % 8.3 %; Neutrophils # 5.8 K/mcL (1.6-8.9); Platelet Count 195 K/mcL (140-400); Red Blood Count 4.15 M/mcL (4.19-5.50); Red Cell Distribution Width 13.7 % (11.5-14.5); Segmented Neutrophils % 65.4 %; White Blood Count 8.8 K/mcL (4.3-11.1)
[2019-02-01 15:42] LABS: BUN/Creatinine Ratio 13 (6-26); Blood Urea Nitrogen 16 mg/dL (8-23); Calcium 9.6 mg/dL (8.6-10.3); Carbon Dioxide 28 mEq/L (23-29); Chloride 100 mEq/L (98-107); Glucose 204 mg/dL (70-105); Osmolality,Calculated 289 (280-300); Potassium 4.7 mEq/L (3.5-5.1); Sodium 136 mEq/L (136-145); eGFR For African Americans > 60 (> 60); eGFR For Non-African Americans 55 (> 60)
[2019-02-01 15:43] LABS: Troponin I < 0.03 ng/mL (< 0.04)
[2019-02-01] MEDS ORDERED: Piperacillin/Tazobactam 3.375 GM in 0.9 % Sodium Chloride Mini Bag 100 ML IVPB ONE (16:35)
[2019-02-01] MEDS ORDERED: levoFLOXacin 750 MG/150 ML 750 MG/150 ML BAG IVPB ONE (16:35)
[2019-02-01] MEDS ORDERED: *HR* LORazepam 2 MG/ML VIAL IVP ONE ×2 (17:26→17:47)
[2019-02-01] MEDS ORDERED: Acetaminophen 325 MG TABLET PO PRN (18:28)
[2019-02-01] MEDS ORDERED: Naloxone 0.4 MG/ML INJ IVP PRN (18:28)
[2019-02-01] MEDS ORDERED: *HR* OxyCODONE Immed Rel 5 MG TABLET PO PRN (18:33)
[2019-02-01] MEDS ORDERED: Ipratropium Neb 0.5 MG NEBULIZER IH PRN (18:33)
[2019-02-01] MEDS ORDERED: *HR* Metoprolol 5 MG/5 ML VIAL IVP PRN (18:34)
[2019-02-01] MEDS ORDERED: *HR* Metoprolol 5 MG/5 ML VIAL IVP ONE (18:34)
[2019-02-01] MEDS ORDERED: Furosemide 40 MG/4 ML VIAL IVP ONE (18:34)
--- NOTE | 2019-02-01 18:35 | Internal Med History&Physical ---
<Sarkis London Antonio - Last Filed: 02/01/19 18:41> Date of Encounter: 02/01/19 Time of Encounter: 18:24 Internal Medicine - H&P: HPI Chief complaint: Shortness of breath Admitted From: Emergency Dept Plans for Post Hospital Care: Home History of present illness: Mr. Parker is a 78 year old male with a past medical history of metastatic renal cell carcinoma receiving immunotherapy, heart failure with preserved ejection fraction, COPD, coronary artery disease, diabetes, hypertension, atrial fibrillation. He was recently admitted earlier this month for shortness of breath secondary to atrial fibrillation with rapid ventricular rate and COPD exacerbation. Over the last several days he has been having increased shortness of breath, which was acutely worsened after immunotherapy today at the cancer center. He was evaluated in the emergency department where he was shown to have hypoxia on ABG, elevated BNP, normal chest x-ray, elevated heart rate in atrial fibrillation, normal head CT, chest CTA without evidence of pulmonary embolism. On my evaluation the patient was resting comfortably on 6 L nasal cannula. He stated he was feeling much better than when he came in and was essentially at his baseline. He confirmed the above history. He denied chest pain, nausea, vomiting, fever or chills. I informed him that my suspicion is that his shortness of breath was related to a combination of atrial fibrillation with rapid ventricular rate, COPD exacerbation and heart failure exacerbation. I informed him I planned to admit him to the hospital and initiate rate control therapy, and treatments for COPD exacerbation and diuresis for heart failure. He stated he understood and agreed with the plan of care. Past Med Surg Social Fam HX - Past Medical History Medical history: cancer, CHF, COPD, coronary artery disease, diabetes, hypertension Additional medical history: Pacemaker. PVD. Irregular Heart Beat. CVD. Rheumatiod Arthritis. Cataracts. Home O2 at 1.5L/Min PRN. Heart Attack. Right Hip Lytic Lesion Femoral Neck Psychiatric history: no psych history - Past Surgical History Surgical History: cancer surgery, cataract, hip replacement (01/05/19) Additional surgical history: Stent to Kidney. Left Carotid Artery. Open Heart Sx - Social History Smoking Status: Current every day smoker Smokeless Tobacco Status: No Alcohol use: occasionally Drug use: none - Family History Father Family Member Ethnicity: Non- Living Status: Hx Family Cardiac Disorders: Yes (CVA) Hx Family Cancer: Yes (Type unknown) Hx Family Neurologic Disorders: Yes (CVA) Mother Family Member Ethnicity: Non- Living Status: Brother Family Member Ethnicity: Non- Living Status: Hx Family Cardiac Disorders: Yes (CAD) Hx Family Cancer: Yes (Type unknown) Sister Family Member Ethnicity: Non- Living Status: Hx Family Cancer: Yes (Type unknown) Internal Medicine - H&P: Meds Aspirin [Adult Aspirin] 81 mg PO DAILY 01/05/19 [History] Dabigatran Etexilate Mesylate [Pradaxa] 150 mg PO BID 01/05/19 [History] Docusate [Colace] 100 mg PO BID 5 Days #10 capsule 01/05/19 [Rx] GlipiZIDE XL (24 HR) [Glucotrol XL] 10 mg PO DAILY 01/05/19 [History] Ipratropium Neb [Atrovent Neb] 0.5 mg IH Q6HR PRN 01/05/19 [History] Levalbuterol Neb [Xopenex Neb] 1.25 mg IH Q8H PRN 01/05/19 [History] Losartan Potassium 100 mg PO DAILY 01/05/19 [History] OxyCODONE Immed Rel [Roxicodone 5 MG] 5 mg PO Q6HR PRN 5 Days #20 tablet 01/05/19 [Rx] Diltiazem CD (24hr) [Cardizem CD] 360 mg PO DAILY 30 Days #60 cap.er.24h 01/17/19 [Rx] Metoprolol [Lopressor] 100 mg PO BID 30 Days #60 tablet 01/17/19 [Rx] Allergy/AdvReac Type Severity Reaction Status Date / Time albuterol Allergy See Verified 01/05/19 13:07 Comments heparin Allergy See Verified 01/05/19 13:22 Comments All Systems PM: A 10-system review of systems was performed and is negative for pertinent findings except as documented above in the HPI. Review of systems: 10 point review of systems negative except for as mentioned in history of present illness. - Constitutional Vitals: Temp Pulse Resp BP Pulse Ox 97.6 F 117 22 142/73 97 02/01/19 14:42 02/01/19 17:47 02/01/19 17:47 02/01/19 17:47 02/01/19 17:47 Exam: Patient resting comfortably in bed on nasal cannula, in no acute distress Alert and oriented 3 No focal deficits noted, cranial nerves grossly intact Pupils equal and reactive to light, extraocular movements intact Heart in tachycardic rate and irregular rhythm, no murmur noted Lung sounds diffusely diminished with minimal expiratory wheeze, no rales or rhonchi auscultated Abdomen soft and nontender with normal bowel sounds noted Bilateral lower extremity 1+ pitting edema Skin warm and dry Internal Med - H&P Results - Labs CBC & Chem 7: 02/01/19 14:57 02/01/19 14:57 Labs: Short CBC 02/01/19 Range/Units 14:57 WBC 8.8 (4.3-11.1) K/mcL Hgb 12.3 L (12.9-16.9) g/dL Hct 38.1 (37.5-50.1) % Plt Count 195 (140-400) K/mcL Neutrophils # 5.8 (1.6-8.9) K/mcL BMP 02/01/19 14:57 Sodium 136 Potassium 4.7 Chloride 100 Carbon Dioxide 28 BUN 16 Creatinine 1.27 Glucose 204 H Calcium 9.6 Cardiac Enzymes 02/01/19 Range/Units 14:57 Troponin I < 0.03 (< 0.04) ng/mL - ABG Interpretation ABG results: 02/01/19 15:10 ABG pH 7.39 ABG pCO2 46 H ABG pO2 69 L ABG HCO3 28 H ABG Total CO2 29 H ABG O2 Saturation 93 L ABG Base Excess 2 - Impressions ITS Impressions Chest X-Ray 02/01/19 14:53 IMPRESSION: No acute process. D/ / Enzo Sanabria MD / Enzo Sanabria MD Interpreting Provider: Enzo Sanabria MD Chest CTA 02/01/19 15:04 IMPRESSION: No evidence of an acute pulmonary embolus. Multiple noncalcified pulmonary nodules throughout both lungs. These nodules appear stable to slightly increased in size from 01/06/2019 and metastatic disease is suspected. A left renal mass noted on the CT abdomen/pelvis of 01/03/2019 may represent the primary tumor. There is an irregular lesion in the lateral right upper lobe not significantly changed from 01/06/2019. This may represent a primary lung tumor. Left hydronephrosis. The left renal mass noted on the prior CT abdomen was noted on the prior study to likely obstruct the left ureter. Follow-up is recommended. D/ / Wisam Woody MD / Wisam Woody MD Interpreting Provider: Wisam Woody MD Head CT 02/01/19 17:10 IMPRESSION: No acute intracranial abnormality. D/ / Hakeem Lei / Hakeem Lei Interpreting Provider: Hakeem Lei - Assessment and Plan (1) Acute and chronic respiratory failure with hypoxia Current Visit: Yes Status: Acute Assessment and plan: Patient presented with shortness of breath He is been increasingly short of breath for last few days, worse today Heart tachycardic and irregular, patient appears fluid overloaded, wheezing on exam His history of previous similar admission consisting of COPD exacerbation and A. fib RVR Labs and exam consistent with COPD exacerbation, A. fib RVR, CHF exacerbation Patient did not meet sirs criteria and I am not clinically suspicious for infection at this time We will treat COPD exacerbation with oral prednisone, levalbuterol nebulizers, and oral azithromycin We will treat A. fib RVR with supplemental IV beta blockers and monitor for improvement We will treat CHF exacerbation with IV Lasix diuresis and fluid restriction diet (2) Acute exacerbation of CHF (congestive heart failure) Current Visit: Yes Status: Acute Assessment and plan: Echocardiogram performed in January of this year demonstrating impaired systolic function with preserved ejection fraction of 45% Qualifiers: Heart failure type: systolic Qualified Code(s): I50.23 - Acute on chronic systolic (congestive) heart failure (3) Atrial fibrillation with RVR Current Visit: Yes Status: Acute Assessment and plan: Patient is on 100 mg by mouth metoprolol twice a day and 360 mg Cardizem CD by mouth daily at home His rate is currently minimally elevated, I anticipate supplementation with IV beta jorge luis will control him If not we will consider Cardizem drip or cardiology consultation (4) COPD with acute exacerbation Current Visit: Yes Status: Acute (5) Lung nodules Current Visit: No Status: Chronic Assessment and plan: Patient has had lung nodules noted on previous imaging and imaging this admission Nodules could represent metastatic disease or primary lung cancer We will discuss further with patient this admission and inquire if he wants further workup (6) CAD (coronary artery disease) Current Visit: No Status: Chronic Assessment and plan: Continue home medications of aspirin and beta blockers Qualifiers: Coronary Disease-Associated Artery/Lesion type: unspecified vessel or lesion type [place] vs. transplanted heart: [place] heart Associated angina: angina presence unspecified Qualified Code(s): I25.10 - Atherosclerotic heart disease of [place] coronary artery without angina pectoris (7) History of right hip hemiarthroplasty Current Visit: No Status: Chronic (8) Metastatic renal cell carcinoma to bone Current Visit: No Status: Chronic Assessment and plan: Patient follows with the [facility] Dr. Marks - Time Spent With Patient Total time spent is greater than 50% in coordination of care (as documented) at patient's floor/unit and/or counseling patient: <Dale Jay Torsten - Last Filed: 02/01/19 19:08> Date of Encounter: 02/01/19 Internal Medicine - H&P: HPI History of present illness: Mr. Parker is a 78 year old male All Systems PM: A 10-system review of systems was performed and is negative for pertinent findings except as documented above in the HPI. - Constitutional Vitals: Temp Pulse Resp BP Pulse Ox 97.6 F 117 22 142/73 97 02/01/19 14:42 02/01/19 17:47 02/01/19 17:47 02/01/19 17:47 02/01/19 17:47 Internal Med - H&P Results - Labs CBC & Chem 7: 02/01/19 14:57 02/01/19 14:57 Labs: Short CBC 02/01/19 Range/Units 14:57 WBC 8.8 (4.3-11.1) K/mcL Hgb 12.3 L (12.9-16.9) g/dL Hct 38.1 (37.5-50.1) % Plt Count 195 (140-400) K/mcL Neutrophils # 5.8 (1.6-8.9) K/mcL BMP 02/01/19 14:57 Sodium 136 Potassium 4.7 Chloride 100 Carbon Dioxide 28 BUN 16 Creatinine 1.27 Glucose 204 H Calcium 9.6 Cardiac Enzymes 02/01/19 Range/Units 14:57 Troponin I < 0.03 (< 0.04) ng/mL - ABG Interpretation ABG results: 02/01/19 15:10 ABG pH 7.39 ABG pCO2 46 H ABG pO2 69 L ABG HCO3 28 H ABG Total CO2 29 H ABG O2 Saturation 93 L ABG Base Excess 2 - Impressions ITS Impressions Chest X-Ray 02/01/19 14:53 IMPRESSION: No acute process. D/ / Enzo Sanabria MD / Enzo Sanabria MD Interpreting Provider: Enzo Sanabria MD Chest CTA 02/01/19 15:04 IMPRESSION: No evidence of an acute pulmonary embolus. Multiple noncalcified pulmonary nodules throughout both lungs. These nodules appear stable to slightly increased in size from 01/06/2019 and metastatic disease is suspected. A left renal mass noted on the CT abdomen/pelvis of 01/03/2019 may represent the primary tumor. There is an irregular lesion in the lateral right upper lobe not significantly changed from 01/06/2019. This may represent a primary lung tumor. Left hydronephrosis. The left renal mass noted on the prior CT abdomen was noted on the prior study to likely obstruct the left ureter. Follow-up is recommended. D/ / Wisam Woody MD / Wisam Woody MD Interpreting Provider: Wisam Woody MD Head CT 02/01/19 17:10 IMPRESSION: No acute intracranial abnormality. D/ / Hakeem Lei / Hakeem Lei Interpreting Provider: Hakeem Lei - Assessment and Plan (1) Acute and chronic respiratory failure with hypoxia Current Visit: Yes Status: Acute (2) Acute exacerbation of CHF (congestive heart failure) Current Visit: Yes Status: Acute Qualifiers: Heart failure type: systolic Qualified Code(s): I50.23 - Acute on chronic systolic (congestive) heart failure (3) COPD exacerbation Current Visit: No Status: Acute (4) Afib Current Visit: No Status: Chronic Qualifiers: Atrial fibrillation type: chronic Qualified Code(s): I48.2 - Chronic atrial fibrillation (5) HTN (hypertension) Current Visit: No Status: Chronic Qualifiers: Hypertension type: essential hypertension Qualified Code(s): I10 - Essential (primary) hypertension (6) Metastatic renal cell carcinoma to bone Current Visit: No Status: Chronic (7) Tobacco abuse Current Visit: Yes Status: Chronic - Time Spent With Patient Total time spent is greater than 50% in coordination of care (as documented) at patient's floor/unit and/or counseling patient: - Attending Attestation I examined this patient and my medical decision-making was reviewed with the [facility] Physician on 02/01/19. I agree with the documented findings, disposition and treatment plan as described except to the extent set forth below. Mr Parker is 78 y/o male with metastatic renal cell cancer presented to ED with tachycardia and dyspnea. Found to be in rapid a fib and CHF. Initially required bipap but is off now. Was admitted with similar symptoms earlier this month. Daughters at bedside. Exam Alert Mild resp distress at rest. NC. EOMI. Mucus membranes dry. Neck supple. Heart irreg and tachy. Scant wheeze bilaterally. Abd soft and nontender. Moves all extremities. No rash. I/P 1. Acute resp failure - wean oxygen 2. CHF - diurese 3. Rapid a fib - additional lopressor 4. Metastatic renal cell cancer. Further diagnoses and plan as above.
[2019-02-01] MEDS ORDERED: Azithromycin 250 MG TABLET PO ONE (18:40)
[2019-02-01] MEDS: Levalbuterol Neb 1.25 MG/3 ML IH SCH (20:33)
[2019-02-01] MEDS: Metoprolol 100 MG TABLET PO SCH (22:20)
[2019-02-01] MEDS: *HR* Dabigatran 150 MG CAPSULE PO SCH (22:20)
[2019-02-02] MEDS: Levalbuterol Neb 1.25 MG/3 ML IH SCH ×4 (04:06→22:34)
[2019-02-02] MEDS: Metoprolol 100 MG TABLET PO SCH ×2 (08:33→20:31)
[2019-02-02] MEDS: Aspirin Enteric Coated 81 MG Tablet PO SCH (08:33)
[2019-02-02] MEDS: Diltiazem CD (24hr) 180 MG CAPSULE PO SCH (08:33)
[2019-02-02] MEDS: *HR* Dabigatran 150 MG CAPSULE PO SCH ×2 (08:33→20:31)
[2019-02-02] MEDS ORDERED: D5% in Water 1,000 ML IVC PRN (08:34)
[2019-02-02] MEDS: Furosemide 40 MG/4 ML VIAL IVP SCH (08:34)
[2019-02-02] MEDS ORDERED: *HR* Dextrose 50 % in Water (Syg) 50 ML SYRINGE IVP PRN (08:34)
[2019-02-02] MEDS: Azithromycin 250 MG TABLET PO SCH (08:34)
[2019-02-02] MEDS ORDERED: Dextrose Gel 15 GM/37.5 ML TUBE PO PRN ×2 (08:34)
[2019-02-02] MEDS ORDERED: predniSONE 20 MG TABLET PO SCH (09:00)
[2019-02-02 09:02] LABS: Basophils % 0.1 %; Eosinophils % 0.1 %; Hematocrit 34.3 % (37.5-50.1); Hemoglobin 11.2 g/dL (12.9-16.9); Immature Granulocytes % 0.9 % (0-4); Lymphocytes # 0.4 K/mcL (0.6-4.6); Mean Corpuscular HGB Conc 32.7 g/dL (31.6-35.5); Mean Corpuscular Hemoglobin 29.6 pg (28.0-33.3); Mean Corpuscular Volume 90.5 fL (83.0-100.0); Mean Platelet Volume 10.9 fL (9.4-12.4); Monocytes # 0.2 K/mcL (0.0-1.3); Monocytes % 2.3 %; Neutrophils # 8.7 K/mcL (1.6-8.9); Platelet Count 180 K/mcL (140-400); Red Blood Count 3.79 M/mcL (4.19-5.50); Red Cell Distribution Width 13.6 % (11.5-14.5); Segmented Neutrophils % 92.6 %; White Blood Count 9.3 K/mcL (4.3-11.1)
[2019-02-02 09:22] LABS: Calcium 9.1 mg/dL (8.6-10.3); Potassium 5.4 mEq/L (3.5-5.1)
--- NOTE | 2019-02-02 09:30 | Internal Med Progress Note ---
Hospitalist Progress Note - Encounter Date of Encounter: 02/02/19 - Exam Vitals: Temp Pulse Resp BP Pulse Ox 97.7 F 99 20 126/72 98 02/02/19 09:00 02/02/19 09:00 02/02/19 09:00 02/02/19 09:00 02/02/19 09:00 - Time Spent with Patient Total time spent is greater than 50% in coordination of care (as documented) at patient's floor/unit and/or counseling patient: Internal Medicine: Result - Labs CBC & Chem 7: 02/02/19 08:53 02/02/19 08:53 Labs: Short CBC 02/01/19 02/02/19 Range/Units 14:57 08:53 WBC 8.8 9.3 (4.3-11.1) K/mcL Hgb 12.3 L 11.2 L (12.9-16.9) g/dL Hct 38.1 34.3 L (37.5-50.1) % Plt Count 195 180 (140-400) K/mcL Neutrophils # 5.8 8.7 (1.6-8.9) K/mcL BMP 02/01/19 02/02/19 14:57 08:53 Sodium 136 131 L Potassium 4.7 5.4 H Chloride 100 98 Carbon Dioxide 28 23 BUN 16 22 Creatinine 1.27 1.40 H Glucose 204 H 410 H Calcium 9.6 9.1 Cardiac Enzymes 02/01/19 Range/Units 14:57 Troponin I < 0.03 (< 0.04) ng/mL - ABG Interpretation ABG results: ABG ABG pH 7.39 pH Units (7.32-7.45) 02/01/19 15:10 ABG pCO2 46 mmHg (35-45) H 02/01/19 15:10 ABG pO2 69 mmHg (85-104) L 02/01/19 15:10 ABG O2 Saturation 93 % (95-98) L 02/01/19 15:10 - Impressions Impressions Chest X-Ray 02/01/19 14:53 IMPRESSION: No acute process. D/ / Enzo Sanabria MD / Enzo Sanabria MD Interpreting Provider: Enzo Sanabria MD Chest CTA 02/01/19 15:04 IMPRESSION: No evidence of an acute pulmonary embolus. Multiple noncalcified pulmonary nodules throughout both lungs. These nodules appear stable to slightly increased in size from 01/06/2019 and metastatic disease is suspected. A left renal mass noted on the CT abdomen/pelvis of 01/03/2019 may represent the primary tumor. There is an irregular lesion in the lateral right upper lobe not significantly changed from 01/06/2019. This may represent a primary lung tumor. Left hydronephrosis. The left renal mass noted on the prior CT abdomen was noted on the prior study to likely obstruct the left ureter. Follow-up is recommended. D/ / Wisam Woody MD / Wisam Woody MD Interpreting Provider: Wisam Woody MD Head CT 02/01/19 17:10 IMPRESSION: No acute intracranial abnormality. D/ / Hakeem Lei / Hakeem Lei Interpreting Provider: Hakeem Lei Consult Discharge Plan - Plan Referrals: Ratna Arambula, FIBER ANALYST [Primary Care Provider] -
[2019-02-02] MEDS: Insulin LISPRO 300 UNITS/3 ML VIAL SQ SCH ×2 (11:41→16:07)
--- NOTE | 2019-02-02 14:32 | Electrocardiograph Report ---
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
[2019-02-02] MEDS ORDERED: *HR* LORazepam 2 MG/ML VIAL IVP ONE (15:53)
--- NOTE | 2019-02-02 16:09 | Internal Med Progress Note ---
<Chico Joyner - Last Filed: 02/02/19 17:07> Hospitalist Progress Note - Encounter Date of Encounter: 02/02/19 Time of Encounter: 09:30 - Subjective Interval History: Pt was sitting up in room eating breakfast when I arrived. States that his breathing has improved greatly since admission. Complained that he didn't like antecubital access for IV's and requested dorsal aspect of hand. Denies chest pain, headaches, fevers, diarrhea, constipation, headaches. - Exam Vitals: Temp Pulse Resp BP Pulse Ox 97.8 F 80 18 120/61 97 02/02/19 15:30 02/02/19 15:30 02/02/19 15:59 02/02/19 15:30 02/02/19 15:59 Exam: Gen: NAD, AAOx3, relaxed demeanor CVS: irregular rhythm, S1, S2 Lungs: normal effort, nasal cannula 8L in place, diminished breath sounds B/L upper and lower quadrants Abdomen: soft, no guarding, no tenderness Psych: Understood care plan, answered questions appropriately, good thought process - Assessment and Plan (1) Acute and chronic respiratory failure with hypoxia Current Visit: Yes Status: Acute Assessment and Plan: -Patient presented with shortness of breath -He had been increasingly short of breath for last few days, worsened 02/01 -Heart tachycardic and irregular, patient appears fluid overloaded, wheezing on exam -His history of previous similar admission consisting of COPD exacerbation and A. fib RVR -Labs and exam consistent with COPD exacerbation, A. fib RVR, CHF exacerbation -Patient did not meet sirs criteria and I am not clinically suspicious for infection at this time -We will treat COPD exacerbation with oral prednisone, levalbuterol nebulizers, and oral azithromycin -We will treat A. fib RVR with supplemental IV beta blockers and monitor for improvement -We will treat CHF exacerbation with IV Lasix diuresis and fluid restriction diet -Weaned O2 down from 8L to 2L which is back to baseline 02/02 -Will monitor to make sure does not decompensate, possible d/c tomorrow (2) Creatinine elevation Current Visit: Yes Status: Acute Assessment and Plan: -Elevated from 1.27 to 1.4 02/02/2019 -Will monitor overnight (3) Acute exacerbation of CHF (congestive heart failure) Current Visit: Yes Status: Acute Assessment and Plan: Echocardiogram performed in January of this year demonstrating impaired systolic function with preserved ejection fraction of 45% (4) Atrial fibrillation with RVR Current Visit: Yes Status: Acute Assessment and Plan: -Patient is on 100 mg by mouth metoprolol twice a day and 360 mg Cardizem CD by mouth daily at home -Was started on 40ml Cardizem 50mg IVC 5mg/hr -Have transitioned from IV Cardizem to 360mg Cardizem PO which is his home do padma -Continue to monitor for changes (5) COPD with acute exacerbation Current Visit: Yes Status: Acute (6) Lung nodules Current Visit: No Status: Chronic Assessment and Plan: -Patient has had lung nodules noted on previous imaging and imaging this admission -Nodules could represent metastatic disease or primary lung cancer -Pulmonolgy consulted; awaiting their input (7) CAD (coronary artery disease) Current Visit: No Status: Chronic Assessment and Plan: -Continue home medications aspirin and beta blockers (8) History of right hip hemiarthroplasty Current Visit: No Status: Chronic (9) Metastatic renal cell carcinoma to bone Current Visit: No Status: Chronic Assessment and Plan: Pt follows with [facility] [address] - Time Spent with Patient Total time spent is greater than 50% in coordination of care (as documented) at patient's floor/unit and/or counseling patient: Internal Medicine: Result - Labs CBC & Chem 7: 02/02/19 08:53 02/02/19 08:53 Labs: Short CBC 02/02/19 Range/Units 08:53 WBC 9.3 (4.3-11.1) K/mcL Hgb 11.2 L (12.9-16.9) g/dL Hct 34.3 L (37.5-50.1) % Plt Count 180 (140-400) K/mcL Neutrophils # 8.7 (1.6-8.9) K/mcL BMP 02/02/19 08:53 Sodium 131 L Potassium 5.4 H Chloride 98 Carbon Dioxide 23 BUN 22 Creatinine 1.40 H Glucose 410 H Calcium 9.1 - ABG Interpretation ABG results: ABG ABG pH 7.39 pH Units (7.32-7.45) 02/01/19 15:10 ABG pCO2 46 mmHg (35-45) H 02/01/19 15:10 ABG pO2 69 mmHg (85-104) L 02/01/19 15:10 ABG O2 Saturation 93 % (95-98) L 02/01/19 15:10 - Impressions Impressions Chest CTA 02/01/19 15:04 IMPRESSION: No evidence of an acute pulmonary embolus. Multiple noncalcified pulmonary nodules throughout both lungs. These nodules appear stable to slightly increased in size from 01/06/2019 and metastatic disease is suspected. A left renal mass noted on the CT abdomen/pelvis of 01/03/2019 may represent the primary tumor. There is an irregular lesion in the lateral right upper lobe not significantly changed from 01/06/2019. This may represent a primary lung tumor. Left hydronephrosis. The left renal mass noted on the prior CT abdomen was noted on the prior study to likely obstruct the left ureter. Follow-up is recommended. D/ / Wisam Woody MD / Wisam Woody MD Interpreting Provider: Wisam Woody MD Head CT 02/01/19 17:10 IMPRESSION: No acute intracranial abnormality. D/ / Hakeem Lei / Hakeem Lei Interpreting Provider: Hakeem Lei Chest X-Ray 02/02/19 04:00 IMPRESSION: Bilateral airspace opacities may represent multifocal pneumonia or pulmonary edema. D/ / Stephanie Mariscal MD / Stephanie Mariscal MD Interpreting Provider: Stephanie Mariscal MD Consult Discharge Plan - Plan Referrals: Ratna Arambula, APPLE THINNER [Primary Care Provider] - <Dale Jay - Last Filed: 02/02/19 19:16> Hospitalist Progress Note - Encounter Date of Encounter: 02/02/19 - Exam Vitals: Temp Pulse Resp BP Pulse Ox 97.9 F 61 18 102/62 92 02/02/19 19:03 02/02/19 19:03 02/02/19 19:03 02/02/19 19:03 02/02/19 19:03 - Assessment and Plan (1) Acute and chronic respiratory failure with hypoxia Current Visit: Yes Status: Acute (2) Acute exacerbation of CHF (congestive heart failure) Current Visit: Yes Status: Acute (3) COPD exacerbation Current Visit: No Status: Acute (4) Afib Current Visit: No Status: Chronic (5) HTN (hypertension) Current Visit: No Status: Chronic (6) Metastatic renal cell carcinoma to bone Current Visit: No Status: Chronic (7) Tobacco abuse Current Visit: Yes Status: Chronic - Time Spent with Patient Total time spent is greater than 50% in coordination of care (as documented) at patient's floor/unit and/or counseling patient: Internal Medicine: Result - Labs CBC & Chem 7: 02/02/19 08:53 02/02/19 08:53 Labs: Short CBC 02/02/19 Range/Units 08:53 WBC 9.3 (4.3-11.1) K/mcL Hgb 11.2 L (12.9-16.9) g/dL Hct 34.3 L (37.5-50.1) % Plt Count 180 (140-400) K/mcL Neutrophils # 8.7 (1.6-8.9) K/mcL BMP 02/02/19 08:53 Sodium 131 L Potassium 5.4 H Chloride 98 Carbon Dioxide 23 BUN 22 Creatinine 1.40 H Glucose 410 H Calcium 9.1 - ABG Interpretation ABG results: ABG ABG pH 7.39 pH Units (7.32-7.45) 02/01/19 15:10 ABG pCO2 46 mmHg (35-45) H 02/01/19 15:10 ABG pO2 69 mmHg (85-104) L 02/01/19 15:10 ABG O2 Saturation 93 % (95-98) L 02/01/19 15:10 - Impressions Impressions Chest X-Ray 02/02/19 04:00 IMPRESSION: Bilateral airspace opacities may represent multifocal pneumonia or pulmonary edema. D/ / Stephanie Mariscal MD / Stephanie Mariscal MD Interpreting Provider: Stephanie Mariscal MD - Attending Attestation The history, physical exam, and medical decision making was performed by the medical student either while I was physically present and actively involved or I personally re-performed the exam and medical decision making. I have verified the accuracy of the medical student's documentation with regards to the history, physical exam findings, and medical decision making on 02/02/19. Mr Parker is currently admitted for acute resp failure and rapid a fib. He remains moderate to high risk due to potential for worsening respiratory status. Mr Parker is breathing better. No fever or chills. No chest pain. No GI issues. Weaning oxygen. Exam Alert. More comfortable today. NC. EOMI. Mucus membranes dry. Neck supple. Heart irreg - not tachy now. Decreased breath sounds with less wheeze. Abd soft. Moves all extremities. No rash. I/P 1. Resp failure - wean oxygen as able 2. COPD 3. CHF 4. A fib - transition to PO meds Anticipate d/c tomorrow. Further diagnoses and plan as above. <Chico Joyner - Last Filed: 02/02/19 17:07> (3) Acute exacerbation of CHF (congestive heart failure) Qualifiers: Heart failure type: systolic Qualified Code(s): I50.23 - Acute on chronic systolic (congestive) heart failure (7) CAD (coronary artery disease) Qualifiers: Coronary Disease-Associated Artery/Lesion type: unspecified vessel or lesion type [place] vs. transplanted heart: [place] heart Associated angina: angina presence unspecified Qualified Code(s): I25.10 - Atherosclerotic heart disease of [place] coronary artery without angina pectoris <Dale Jay - Last Filed: 02/02/19 19:16> (2) Acute exacerbation of CHF (congestive heart failure) Qualifiers: Heart failure type: systolic Qualified Code(s): I50.23 - Acute on chronic systolic (congestive) heart failure (4) Afib Qualifiers: Atrial fibrillation type: chronic Qualified Code(s): I48.2 - Chronic atrial fibrillation (5) HTN (hypertension) Qualifiers: Hypertension type: essential hypertension Qualified Code(s): I10 - Essential (primary) hypertension
--- NOTE | 2019-02-02 16:33 | Pulmonology Consult Note ---
<Harsha Rodriguez W - Last Filed: 02/02/19 16:41> Date of Encounter: 02/02/19 Medications and Allergies Aspirin [Adult Aspirin] 81 mg PO DAILY 01/05/19 [History] Dabigatran Etexilate Mesylate [Pradaxa] 150 mg PO BID 01/05/19 [History] Docusate [Colace] 100 mg PO BID 5 Days #10 capsule 01/05/19 [Rx] GlipiZIDE XL (24 HR) [Glucotrol XL] 10 mg PO DAILY 01/05/19 [History] Ipratropium Neb [Atrovent Neb] 0.5 mg IH Q6HR PRN 01/05/19 [History] Levalbuterol Neb [Xopenex Neb] 1.25 mg IH Q8H PRN 01/05/19 [History] Losartan Potassium 100 mg PO DAILY 01/05/19 [History] OxyCODONE Immed Rel [Roxicodone 5 MG] 5 mg PO Q6HR PRN 5 Days #20 tablet 01/05/19 [Rx] Diltiazem CD (24hr) [Cardizem CD] 360 mg PO DAILY 30 Days #60 cap.er.24h 01/17/19 [Rx] Metoprolol [Lopressor] 100 mg PO BID 30 Days #60 tablet 01/17/19 [Rx] Allergy/AdvReac Type Severity Reaction Status Date / Time albuterol Allergy See Verified 01/05/19 13:07 Comments heparin Allergy See Verified 01/05/19 13:22 Comments All Systems: The remainder of the systems were reviewed and are negative Physical Examination Vital Signs: Vital Signs, Last 4 Hours Temp Pulse Resp BP Pulse Ox 02/02/19 15:59 18 97 02/02/19 15:30 97.8 F 80 17 120/61 95 02/02/19 14:33 95 02/02/19 12:42 95 Results - Laboratory Findings CBC and BMP: 02/02/19 08:53 02/02/19 08:53 ABG ABG pH 7.39 pH Units (7.32-7.45) 02/01/19 15:10 ABG pCO2 46 mmHg (35-45) H 02/01/19 15:10 ABG pO2 69 mmHg (85-104) L 02/01/19 15:10 ABG O2 Saturation 93 % (95-98) L 02/01/19 15:10 Abnormal lab findings: Abnormal lab results RBC 3.79 M/mcL (4.19-5.50) L 02/02/19 08:53 Hgb 11.2 g/dL (12.9-16.9) L 02/02/19 08:53 Hct 34.3 % (37.5-50.1) L 02/02/19 08:53 Lymphocytes # 0.4 K/mcL (0.6-4.6) L 02/02/19 08:53 Eosinophils # 1.2 K/mcL (0.0-0.6) H 02/01/19 14:57 ABG pCO2 46 mmHg (35-45) H 02/01/19 15:10 ABG pO2 69 mmHg (85-104) L 02/01/19 15:10 ABG HCO3 28 mEq/L (21-27) H 02/01/19 15:10 ABG Total CO2 29 mEq/L (20-26) H 02/01/19 15:10 ABG O2 Saturation 93 % (95-98) L 02/01/19 15:10 Sodium 131 mEq/L (136-145) L 02/02/19 08:53 Potassium 5.4 mEq/L (3.5-5.1) H 02/02/19 08:53 Creatinine 1.40 mg/dL (0.70-1.30) H 02/02/19 08:53 Est GFR ( Amer) 59 (> 60) L 02/02/19 08:53 Est GFR (Non-Af Amer) 49 (> 60) L 02/02/19 08:53 Glucose 410 mg/dL (70-105) H 02/02/19 08:53 POC Glucose 275 mg/dL (70-99) H 02/02/19 07:02 Lactic Acid 2.4 mmol/L (0.5-2.2) H 02/01/19 14:57 B-Natriuretic Peptide 309 pg/mL (Less than 100) H 02/01/19 14:57 Procalcitonin 0.17 ng/mL (0.00-0.15) H 02/01/19 14:57 - Microbiology Findings Microbiology Findings: Microbiology, Last 48 Hours 02/01/19 15:01 Blood Culture - Preliminary Peripheral Venipuncture Culture is incubating and being continuously monitored for growth. Final report to follow. 02/01/19 14:57 Blood Culture - Preliminary Peripheral Venipuncture Culture is incubating and being continuously monitored for growth. Final report to follow. - Clinical Findings Intake & Output: Intake & Output 02/02/19 02/02/19 02/02/19 07:59 15:59 23:59 Intake Total 275.6 / 1115.6 840 / 1115.6 Output Total 675 / 1155 480 / 1155 Balance -399.4 / -39.4 360 / -39.4 Weight 81.8 kg Consult Discharge Plan - Plan Referrals: Ratna Arambula, JEWELRY MAKER [Primary Care Provider] - - Attending Attestation I examined this patient and my medical decision-making was reviewed with the Resident Physician. I agree with the documented findings, disposition and treatment plan as described except to the extent set forth below. We independently had [id number] contact with the patient Patient seen and examined at bedside Labs, radiology, chart personally reviewed. Impression/Recs: -Acute on chronic hypoxic respiratory failure-approved likely related to hydrostatic pulmonary edema cannot fully exclude but felt to be less likely an effect of cancer immunotherapy -Acute on chronic heart failure with preserved ejection fraction- improving, continue diuretic blood pressure and heart rate control -Multiple lung nodules suspect the majority of lung nodules related to metastatic disease he is right upper lobe nodule that has features concerning for a second primary such as adenocarcinoma, however scar is not fully excluded. Recommended outpatient PET scan and we will consider transthoracic needle biopsy -COPD without clear evidence of exacerbations and he is having some side effects of systemic glucocorticoid recommend transitioning to budesonide twice a day in addition to his current nebulizer regimen which should be scheduled every 6 hours (ipratropium and levalbuterol) -Tobacco Abuse: Tobacco abuse counseling given Patient will benefit from clinic follow-up with pulmonary in 2-4 weeks Thank you very much for this consultation Do not hesitate to call me with any questions or concerns Clayton Rodriguez [phone] <Sorin Herbert M - Last Filed: 02/02/19 16:58> Date of Encounter: 02/02/19 Time of Encounter: 15:00 Assessment and Plan (1) Acute and chronic respiratory failure with hypoxia Current Visit: Yes Status: Acute Patient does not refer chronic hypoxic respiratory failure. Requires 2 L supplemental oxygen at home as needed. Has been requiring his supplemental oxygen more frequently to the point that over the last couple weeks he states he has been requiring a 24/7. Patient does have a significant history of tobacco abuse, [id number] smoking history. Patient has history of COPD with multiple hospitalizations for exacerbations but does not have any pulmonary function testing on file and does not follow with a manager machine outpatient. Patient presented secondary to acutely worsening pulmonary status following immunotherapy for metastatic renal cell carcinoma. Patient was requiring 6 L O2 in the emergency department to maintain SPO2 greater than 90%. In the emergency department the patient did receive broad-spectrum antibiotics secondary to imaging studies revealing possible bilateral airspace opacities. However, these were discontinued as the imaging results are likely secondary to pulmonary edema as a result of chronic diastolic heart failure. Patient received 40 mg IV Lasix yesterday with good urine output and significant improvement in respiratory status. Supplemental oxygen has been weaned down over last 24 hours, currently requiring 2 L, back at baseline. Plan: -Continue scheduled bronchodilators, patient will need his leave al buterol/ipratropium switched to scheduled upon discharge as previously was taking PRN -We will add budesonide inhaler but will discontinue systemic steroids at this time as patient does not exhibit signs/symptoms of acute exacerbation of COPD -Continue supplemental O2 to maintain SPO2 greater than 88% while inpatient -Patient would likely benefit from daily diuresis for chronic fluid overload and improvement in respiratory status and decreased hospitalizations for respiratory failure, however currently recommend cautious use of Lasix in the setting of increasing serum creatinine, decreasing GFR, which could be due to possible contrast-induced nephropathy, overdiuresis, or ureteral obstruction secondary to left renal mass -Patient may follow up in the pulmonology clinic, will sign off at this time, please reconsult as needed (2) Lung mass Current Visit: Yes Status: Acute Chest CT was negative for pulmonary embolus but did reveal multiple noncalcified pulmonary nodules throughout both lungs which are stable or slightly increased in size from study performed 01/06/2019 with concern for metastatic disease. Additionally, an irregular lesion in the lateral right upper lobe was identified and was not significantly changed from 01/06/2019. This potentially represents a primary lung tumor given the radiographic appearance and significant history of chronic tobacco abuse. However, patient does currently have renal cell carcinoma with metastasis to the bone and cannot exclude further metastasis to the lung at this time. Plan: -Patient will likely need outpatient PET scan for further evaluation -No indications for inpatient bronchoscopy/biopsy -Please follow up outpatient with pulmonology clinic for further diagnostic studies (3) Acute exacerbation of CHF (congestive heart failure) Current Visit: Yes Status: Acute BNP 309 on admission Patient does have signs of fluid overload +1 pretibial edema Possible pulmonary edema identified on chest x-ray Last echo January 2019, systolic dysfunction, EF 45%, diastolic dysfunction as well Continue cautious diuresis Qualifiers: Heart failure type: systolic Qualified Code(s): I50.23 - Acute on chronic systolic (congestive) heart failure (4) Tobacco abuse Current Visit: Yes Status: Chronic Tobacco Cessation Recommened Currently Continues to smoke History of Present Illness Consult date: 02/02/19 Reason for consult: lung mass Chief complaint: Shortness of Breath History of present illness: 78-year-old male with past medical history of metastatic renal cell carcinoma, first round of immunotherapy received just prior to presentation in the ED, in addition to chronic diastolic heart failure with preserved ejection fraction, COPD, coronary artery disease, diabetes, hypertension, atrial fibrillation. He presented to the emergency department 02/01/2019 for progressively worsening shortness of breath 3 days. Patient was recently admitted for similar complaint and diagnoses acute on chronic hypoxic respiratory failure and COPD exacerbation. Patient's baseline oxygen requirements are 2 L at home. Patient does have a significant history of tobacco abuse, states began smoking in high school, one pack per day 65 years. Patient states he has been somewhat short of breath for last several days but progressively worsened secondary to receiving first round of immunotherapy and oncologist office yesterday. Patient does have history of COPD but does not have any pulmonary function tests on file. Does not follow with manager machine. Currently takes levalbuterol and ipratropium as needed. In the ED, patient was found to be in atrial fibrillation with rapid ventricular rate and was requiring 6 L nasal cannula to maintain SPO2 greater than 90%. Patient's baseline oxygen requirements are 2 L at home. Patient was afebrile. He was found to be in A. fib with RVR and was placed on Cardizem drip.. Respiratory rate was 22. Chest x-ray obtained on hospital day 2 revealed bilateral airspace opacities consistent with multifocal pneumonia or possible pulmonary edema. Chest CT was negative for pulmonary embolus but did reveal multiple noncalcified pulmonary nodules throughout both lungs which are stable or slightly increased in size from study performed 01/06/2019 with concern for metastatic disease. Additionally, an irregular lesion in the lateral right upper lobe was identified and was not significantly changed from 01/06/2019. This potentially represents a primary lung tumor given the radiographic appearance and significant history of chronic tobacco abuse. Laboratory evaluation was significant for GFR 55, BNP 309, pro calcitonin was 0.17. ABG revealed pH 7.39, PCO2 46, PO2 69, HCO3 28. Past Med Surg Social Fam HX - Past Medical History Medical history: cancer, CHF, COPD, coronary artery disease, diabetes, hypertension Additional medical history: Pacemaker. PVD. Irregular Heart Beat. CVD. Rheumatiod Arthritis. Cataracts. Home O2 at 1.5L/Min PRN. Heart Attack. Right Hip Lytic Lesion Femoral Neck Psychiatric history: no psych history - Past Surgical History Surgical History: cancer surgery, cataract, hip replacement (01/05/19) Additional surgical history: Stent to Kidney. Left Carotid Artery. Open Heart Sx - Social History Smoking Status: Current every day smoker Packs per day: 1/2 pack Smokeless Tobacco Status: No Alcohol use: occasionally Drug use: none - Family History Father Family Member Ethnicity: Non- Living Status: Hx Family Cardiac Disorders: Yes (CVA) Hx Family Cancer: Yes (Type unknown) Hx Family Neurologic Disorders: Yes (CVA) Mother Family Member Ethnicity: Non- Living Status: Brother Family Member Ethnicity: Non- Living Status: Hx Family Cardiac Disorders: Yes (CAD) Hx Family Cancer: Yes (Type unknown) Sister Family Member Ethnicity: Non- Living Status: Hx Family Cancer: Yes (Type unknown) All Systems: The remainder of the systems were reviewed and are negative Physical Examination Vital Signs: Vital Signs, Last 4 Hours Temp Pulse Resp BP Pulse Ox 02/02/19 15:59 18 97 02/02/19 15:30 97.8 F 80 17 120/61 95 02/02/19 14:33 95 02/02/19 12:42 95 02/02/19 12:25 95 General: Vitals noted. Agitated. No acute distress Head: Atraumatic, normocephalic Eyes: Anicteric sclera, moist conjunctiva ENT: mucous murmurs moist Neck: Trachea midline, no lymphadenopathy CV: Tachycardic, irregular rhythm, normal S1-S2, no murmurs Respiratory: Clear to auscultation bilaterally, no wheezes, rales, rhonchi Abdomen: Soft, nontender, nondistended Extremities: +1 pretibial edema noted, early signs of venous stasis dermatitis Results - Laboratory Findings CBC and BMP: 02/02/19 08:53 02/02/19 08:53 ABG ABG pH 7.39 pH Units (7.32-7.45) 02/01/19 15:10 ABG pCO2 46 mmHg (35-45) H 02/01/19 15:10 ABG pO2 69 mmHg (85-104) L 02/01/19 15:10 ABG O2 Saturation 93 % (95-98) L 02/01/19 15:10 Abnormal lab findings: Abnormal lab results RBC 3.79 M/mcL (4.19-5.50) L 02/02/19 08:53 Hgb 11.2 g/dL (12.9-16.9) L 02/02/19 08:53 Hct 34.3 % (37.5-50.1) L 02/02/19 08:53 Lymphocytes # 0.4 K/mcL (0.6-4.6) L 02/02/19 08:53 Eosinophils # 1.2 K/mcL (0.0-0.6) H 02/01/19 14:57 ABG pCO2 46 mmHg (35-45) H 02/01/19 15:10 ABG pO2 69 mmHg (85-104) L 02/01/19 15:10 ABG HCO3 28 mEq/L (21-27) H 02/01/19 15:10 ABG Total CO2 29 mEq/L (20-26) H 02/01/19 15:10 ABG O2 Saturation 93 % (95-98) L 02/01/19 15:10 Sodium 131 mEq/L (136-145) L 02/02/19 08:53 Potassium 5.4 mEq/L (3.5-5.1) H 02/02/19 08:53 Creatinine 1.40 mg/dL (0.70-1.30) H 02/02/19 08:53 Est GFR ( Amer) 59 (> 60) L 02/02/19 08:53 Est GFR (Non-Af Amer) 49 (> 60) L 02/02/19 08:53 Glucose 410 mg/dL (70-105) H 02/02/19 08:53 POC Glucose 275 mg/dL (70-99) H 02/02/19 07:02 Lactic Acid 2.4 mmol/L (0.5-2.2) H 02/01/19 14:57 B-Natriuretic Peptide 309 pg/mL (Less than 100) H 02/01/19 14:57 Procalcitonin 0.17 ng/mL (0.00-0.15) H 02/01/19 14:57 - Microbiology Findings Microbiology Findings: Microbiology, Last 48 Hours 02/01/19 15:01 Blood Culture - Preliminary Peripheral Venipuncture Culture is incubating and being continuously monitored for growth. Final report to follow. 02/01/19 14:57 Blood Culture - Preliminary Peripheral Venipuncture Culture is incubating and being continuously monitored for growth. Final report to follow. - Clinical Findings Intake & Output: Intake & Output 02/02/19 02/02/19 02/02/19 07:59 15:59 23:59 Intake Total 275.6 / 1115.6 840 / 1115.6 Output Total 675 / 1155 480 / 1155 Balance -399.4 / -39.4 360 / -39.4 Weight 81.8 kg
[2019-02-02] MEDS: Ipratropium Neb 0.5 MG NEBULIZER IH SCH ×2 (18:33→22:34)
[2019-02-02] MEDS ORDERED: Insulin LISPRO 300 UNITS/3 ML VIAL SQ SCH (21:00)
[2019-02-02] MEDS: Budesonide/Formoterol 160/4.5 1 PUFF INH IH SCH (22:34)
[2019-02-03] MEDS: Levalbuterol Neb 1.25 MG/3 ML IH SCH ×2 (04:17→10:29)
[2019-02-03] MEDS: Ipratropium Neb 0.5 MG NEBULIZER IH SCH ×2 (04:17→10:30)
[2019-02-03] MEDS: *HR* Dabigatran 150 MG CAPSULE PO SCH (08:08)
[2019-02-03] MEDS: Aspirin Enteric Coated 81 MG Tablet PO SCH (08:08)
[2019-02-03] MEDS: Furosemide 40 MG/4 ML VIAL IVP SCH (08:08)
[2019-02-03] MEDS: Insulin LISPRO 300 UNITS/3 ML VIAL SQ SCH ×2 (08:08→12:30)
[2019-02-03] MEDS: Diltiazem CD (24hr) 180 MG CAPSULE PO SCH (08:09)
[2019-02-03] MEDS: Azithromycin 250 MG TABLET PO SCH (08:09)
[2019-02-03] MEDS: Metoprolol 100 MG TABLET PO SCH (08:09)
--- NOTE | 2019-02-03 08:25 | Discharge Summary ---
<[place]Sarkis Antonio - Last Filed: 02/03/19 14:21> - NOTES TO OUTPATIENT PROVIDER Notes to Outpatient Provider: Patient with past medical history of renal cell carcinoma, COPD, CHF, A.fib admitted for acute respiratory failure secondary to COPD exacerbation, CHF exacerbation and A. fib RVR. He was treated with nebulizers, IV and oral steroids, IV diuresis, IV and oral rate control. His clinical status improved and he was discharged in stable medical condition. Budesonide nebulizer was added per pulmonology recommendation and senna by mouth was added for chronic constipation. Repeat BMP in 3 days for resolution of increased creatinine. Orders not resulted at time of discharge: Pending orders 02/01/19 15:01 Culture,Blood [BC] Stat 02/01/19 16:45 MRSA Surveillance Screen [MOLMIC] Stat Date of Encounter: 02/03/19 Time of Encounter: 08:25 - Discharge Diagnosis (1) Acute and chronic respiratory failure with hypoxia Priority: Primary Status: Resolved (2) Acute exacerbation of CHF (congestive heart failure) Priority: Secondary Status: Resolved Qualifiers: Heart failure type: systolic Qualified Code(s): I50.23 - Acute on chronic systolic (congestive) heart failure (3) Atrial fibrillation with RVR Priority: Secondary Status: Resolved (4) COPD with acute exacerbation Priority: Secondary Status: Resolved (5) Lung nodules Priority: Secondary Status: Chronic (6) CAD (coronary artery disease) Priority: Secondary Status: Chronic Qualifiers: Coronary Disease-Associated Artery/Lesion type: unspecified vessel or lesion type [place] vs. transplanted heart: [place] heart Associated angina: angina presence unspecified Qualified Code(s): I25.10 - Atherosclerotic heart disease of [place] coronary artery without angina pectoris (7) History of right hip hemiarthroplasty Priority: Secondary Status: Chronic (8) Metastatic renal cell carcinoma to bone Priority: Secondary Status: Chronic Hospital course: Mr. Parker is a 78 year old male with a past medical history of metastatic renal cell carcinoma receiving immunotherapy, heart failure service ejection fraction, COPD, coronary artery disease, diabetes, hypertension, atrial fibrillation. He had a previous admission for shortness of breath secondary to A. fib RVR and COPD exacerbation. Prior to this admission he was having several days of increased shortness of breath which was acutely worsened after immunotherapy. On arrival to the emergency department he was found to be in atrial fibrillation with an elevated heart rate, elevated BNP hypoxia. Chest CTA was negative for evidence of pulmonary embolism. He was admitted with acute on chronic respiratory failure secondary to COPD exacerbation, CHF exacerbation, A. fib RVR. He was started on Cardizem drip, nebulizers, steroids, IV diuresis. Lung nodules were identified incidentally on chest CTA. He had known previously of these lung nodules and many of them are considered to be metastases from the renal cell carcinoma however one in particular looked as though it could be a pulmonary primary tumor. Pulmonology evaluation was re quested for these lung nodules as well as management of his respiratory failure. They recommended outpatient follow-up as well as addition of budesonide nebulizer to his regimen. His clinical condition improved over 2 days and he was subsequently discharged in stable medical condition to follow up with oncology, pulmonology. Budesonide nebulizer and senna plus were added to his home medications at discharge. His creatinine was noted to increase mildly during admission. All per record review this has happened previously when he required inpatient diuresis subsequently resolved. We have ordered repeat BMP in 3 days to monitor for resolution. Discharge discussed with: patient, family - Time Spent with Patient Total time spent providing and/or coordinating discharge services: - Discharge Medications Prescriptions: New PredniSONE [Deltasone] 40 mg PO DAILY 5 Days #10 tablet Budesonide Neb [Pulmicort Neb] 0.25 mg IH BIDR 30 Days #100 ampul.neb Sennosides/Docusate Sodium [Senna Plus] 1 each PO DAILY 30 Days #30 tablet Continued Docusate [Colace] 100 mg PO BID 5 Days #10 capsule OxyCODONE Immed Rel [Roxicodone 5 MG] 5 mg PO Q6HR PRN 5 Days #20 tablet PRN Reason: Severe Pain Aspirin [Adult Aspirin] 81 mg PO DAILY Dabigatran Etexilate Mesylate [Pradaxa] 150 mg PO BID GlipiZIDE XL (24 HR) [Glucotrol XL] 10 mg PO DAILY Ipratropium Neb [Atrovent Neb] 0.5 mg IH Q6HR PRN PRN Reason: Shortness Of Breath Levalbuterol Neb [Xopenex Neb] 1.25 mg IH Q8H PRN PRN Reason: Shortness Of Breath Losartan Potassium 100 mg PO DAILY Diltiazem CD (24hr) [Cardizem CD] 360 mg PO DAILY 30 Days #60 cap.er.24h Metoprolol [Lopressor] 100 mg PO BID 30 Days #60 tablet Furosemide [Lasix] 20 mg PO DAILY Home Medications: Aspirin [Adult Aspirin] 81 mg PO DAILY 01/05/19 [History] Dabigatran Etexilate Mesylate [Pradaxa] 150 mg PO BID 01/05/19 [History] Docusate [Colace] 100 mg PO BID 5 Days #10 capsule 01/05/19 [Rx] GlipiZIDE XL (24 HR) [Glucotrol XL] 10 mg PO DAILY 01/05/19 [History] Ipratropium Neb [Atrovent Neb] 0.5 mg IH Q6HR PRN 01/05/19 [History] Levalbuterol Neb [Xopenex Neb] 1.25 mg IH Q8H PRN 01/05/19 [History] Losartan Potassium 100 mg PO DAILY 01/05/19 [History] OxyCODONE Immed Rel [Roxicodone 5 MG] 5 mg PO Q6HR PRN 5 Days #20 tablet 01/05/19 [Rx] Diltiazem CD (24hr) [Cardizem CD] 360 mg PO DAILY 30 Days #60 cap.er.24h 01/17/19 [Rx] Metoprolol [Lopressor] 100 mg PO BID 30 Days #60 tablet 01/17/19 [Rx] Furosemide [Lasix] 20 mg PO DAILY 02/02/19 [History] Budesonide Neb [Pulmicort Neb] 0.25 mg IH BIDR 30 Days #100 ampul.neb 02/03/19 [Rx] PredniSONE [Deltasone] 40 mg PO DAILY 5 Days #10 tablet 02/03/19 [Rx] Sennosides/Docusate Sodium [Senna Plus] 1 each PO DAILY 30 Days #30 tablet 02/03/19 [Rx] Allergies/Adverse Reactions: Allergy/AdvReac Type Severity Reaction Status Date / Time albuterol Allergy See Verified 01/05/19 13:07 Comments heparin Allergy See Verified 01/05/19 13:22 Comments Date of admission: 02/01/19 19:27 Primary care physician: Ratna Arambula CNP Consults: 02/02/19 10:24 Consult to Pulmonology [CONS] Routine Consulting Provider: [facility] [place] Reason for Consult: multiple lung nodules, possibly metastatic but also concerning for primary lung cancer, family requesting consultation Time Notified: 10:25 Call Completed: Yes 02/02/19 15:52 Consult to Nurse Navigator [CONS] Routine Comment: CHF/COPD Discharging clinician: Sarkis [place] Anticipated date of discharge: 02/03/19 - Constitutional Vitals: Temp Pulse Resp BP Pulse Ox 97.4 F L 88 22 116/65 93 02/03/19 07:10 02/03/19 07:10 02/03/19 07:10 02/03/19 07:10 02/03/19 07:10 Exam: Gen: NAD, AAOx3, anxious demeanor CVS: Regular rate irregular rhythm, S1, S2 Lungs: normal effort, nasal cannula 2L in place, diminished breath sounds B/L upper and lower quadrants Abdomen: soft, no guarding, no tenderness Skin warm and dry Psych: Understood care plan, answered questions appropriately, good thought process - Patient Status Disposition: Home Health Service Condition: Fair Functional capacity at discharge: independent ambulation Overall status at discharge: patient is progressing back to baseline - Ambulatory Orders Ambulatory Orders: Basic Metabolic Panel [CHEM] Time Frame: 3 Days, Facility: [facility], Location: Lab - Discharge Instructions Instructions: Prednisone (By mouth), Heart Failure (DC), Chronic Obstructive Pulmonary Disease (DC) Follow Up With: Ratna Arambula, RESEARCH EXECUTIVE [Primary Care Provider] - - Diet and Activity Activity: resume usual activities as tolerated, wear oxygen at all times Diet: advance to your usual diet <Dale Jay - Last Filed: 02/03/19 18:27> Orders not resulted at time of discharge: Pending orders 02/01/19 15:01 Culture,Blood [BC] Stat 02/01/19 16:45 MRSA Surveillance Screen [MOLMIC] Stat Date of Encounter: 02/03/19 - Discharge Diagnosis (1) Acute and chronic respiratory failure with hypoxia Status: Resolved (2) Acute exacerbation of CHF (congestive heart failure) Status: Resolved Qualifiers: Heart failure type: systolic Qualified Code(s): I50.23 - Acute on chronic systolic (congestive) heart failure (3) COPD exacerbation Status: Acute (4) Afib Status: Chronic Qualifiers: Atrial fibrillation type: chronic Qualified Code(s): I48.2 - Chronic atrial fibrillation (5) HTN (hypertension) Status: Chronic Qualifiers: Hypertension type: essential hypertension Qualified Code(s): I10 - Essential (primary) hypertension (6) Metastatic renal cell carcinoma to bone Status: Chronic (7) Tobacco abuse Status: Chronic Hospital course: Mr. Parker is a 78 year old male - Time Spent with Patient Total time spent providing and/or coordinating discharge services: Date of admission: 02/01/19 19:27 Primary care physician: Ratna Arambula CNP Consults: 02/02/19 10:24 Consult to Pulmonology [CONS] Routine Consulting Provider: [facility] [place] Reason for Consult: multiple lung nodules, possibly metastatic but also concerning for primary lung cancer, family requesting consultation Time Notified: 10:25 Call Completed: Yes 02/02/19 15:52 Consult to Nurse Navigator [CONS] Routine Comment: CHF/COPD - Constitutional Vitals: Temp Pulse Resp BP Pulse Ox 97.6 F 82 16 108/61 95 02/03/19 12:03 02/03/19 12:03 02/03/19 12:03 02/03/19 12:03 02/03/19 12:03 - Attending Attestation I examined this patient and my medical decision-making was reviewed with the Resident Physician on 02/03/19. I agree with the documented findings, disposition and treatment plan as described except to the extent set forth below. Mr Parker has been admitted for acute resp failure due to CHF and COPD. He has improved with diuresis. He had slight increase in creatinine which will be followed outpatient. Today he is afebrile and ready for discharge home. Exam: Alert. Comfortable. Heart irreg but not tachy. No wheeze Plan: D/C home D/c time 35min
[2019-02-03] MEDS: Budesonide/Formoterol 160/4.5 1 PUFF INH IH SCH (10:29)
[2019-02-03 11:11] LABS: Calcium 9.5 mg/dL (8.6-10.3)
[2019-02-03 12:06] VITALS: BP 108/61
--- NOTE | 2019-02-03 13:19 | Physician Discharge Referral ---
Home Health/Hosp Referral Info Transfer to: Home Health Attending Provider: Pierre Provider in Charge Post Discharge: PCP - Diagnosis (1) Acute and chronic respiratory failure with hypoxia Priority: Primary Status: Resolved (2) Acute exacerbation of CHF (congestive heart failure) Priority: Secondary Status: Resolved (3) Atrial fibrillation with RVR Priority: Secondary Status: Resolved (4) COPD with acute exacerbation Priority: Secondary Status: Resolved (5) Lung nodules Priority: Secondary Status: Chronic (6) CAD (coronary artery disease) Priority: Secondary Status: Chronic (7) History of right hip hemiarthroplasty Priority: Secondary Status: Chronic (8) Metastatic renal cell carcinoma to bone Priority: Secondary Status: Chronic - Respiratory Orders Oxygen / L per min (2L) Smoking Cessation: Smoking cessation has been advised. For more information, call the [employer] Tobacco Quit Line at 5-840-CEZZ-NOW. - Diet/Nutrition Diet/Nutrition Orders: No Concentrated Sweets - Activity Activity Orders: Up ad cara - Services Needed Following services are medically necessary services: Nursing, Physical Therapy, Occupational Therapy - Transfer Medications Prescriptions: PredniSONE [Deltasone] 40 mg PO DAILY 5 Days #10 tablet Budesonide Neb [Pulmicort Neb] 0.25 mg IH BIDR 30 Days #100 ampul.neb Sennosides/Docusate Sodium [Senna Plus] 1 each PO DAILY 30 Days #30 tablet Home Medications: Aspirin [Adult Aspirin] 81 mg PO DAILY 01/05/19 [History] Dabigatran Etexilate Mesylate [Pradaxa] 150 mg PO BID 01/05/19 [History] Docusate [Colace] 100 mg PO BID 5 Days #10 capsule 01/05/19 [Rx] GlipiZIDE XL (24 HR) [Glucotrol XL] 10 mg PO DAILY 01/05/19 [History] Ipratropium Neb [Atrovent Neb] 0.5 mg IH Q6HR PRN 01/05/19 [History] Levalbuterol Neb [Xopenex Neb] 1.25 mg IH Q8H PRN 01/05/19 [History] Losartan Potassium 100 mg PO DAILY 01/05/19 [History] OxyCODONE Immed Rel [Roxicodone 5 MG] 5 mg PO Q6HR PRN 5 Days #20 tablet 01/05/19 [Rx] Diltiazem CD (24hr) [Cardizem CD] 360 mg PO DAILY 30 Days #60 cap.er.24h 01/17/19 [Rx] Metoprolol [Lopressor] 100 mg PO BID 30 Days #60 tablet 01/17/19 [Rx] Furosemide [Lasix] 20 mg PO DAILY 02/02/19 [History] Budesonide Neb [Pulmicort Neb] 0.25 mg IH BIDR 30 Days #100 ampul.neb 02/03/19 [Rx] PredniSONE [Deltasone] 40 mg PO DAILY 5 Days #10 tablet 02/03/19 [Rx] Sennosides/Docusate Sodium [Senna Plus] 1 each PO DAILY 30 Days #30 tablet 02/03/19 [Rx] Allergies/Adverse Reactions: Allergy/AdvReac Type Severity Reaction Status Date / Time albuterol Allergy See Verified 01/05/19 13:07 Comments heparin Allergy See Verified 01/05/19 13:22 Comments Certification: Further, I certify that my clinical findings support that this patient is homebound (i.e. absences from home require considerable and taxing effort and are for medical reasons or mosque services or infrequently or short duration when for other reasons) because: Homebound Reason: Severity of cardiac or pulmonary status limits activity tolerance Attestation: My signature below is to certify that this patient is under my care and that I, or nurse practitioner, or a physician's golf player assistant working with me, has a [id number] encounter with this patient.
== END 2019-02-03 12:43 | disposition home health service (06) | DRG 291 ==
LOC: EMEROOARM 14:39 → 2ANU 19:27 → SUATTDRO 19:27 → 2ANU 20:51
PROVIDERS: ADMIT Internal Medicine; ATTEND Internal Medicine

== ENCOUNTER 2019-04-13 09:43 | Inpatient (IN) ==
[~2019-04-13 09:43] MED LIST: Aminoglycoside Consult 1 EACH MC ONE
[2019-04-13] MEDS ORDERED: Ipratropium/Albuterol Neb 3 ML IH ONE (09:55)
[2019-04-13] MEDS ORDERED: 0.9 % Sodium Chloride 500 ML IVC ONE (09:55)
[2019-04-13] MEDS ORDERED: 0.9 % Sodium Chloride 1,000 ML IVC ONE ×2 (09:59→11:03)
[2019-04-13 10:18] LABS: Bilirubin,Urine Negative (Negative); Blood,Urine Negative (Negative); Clarity,Urine Clear (Clear); Color,Urine Dark Yellow (Yellow); Glucose,Urine (UA) Normal (Normal); Ketones,Urine Negative (Negative); Leukocyte Esterase,Urine Negative (Negative); Nitrite,Urine Negative (Negative); PH,Urine 5.5 pH Units (5.0-8.0); Protein,Urine Trace mg/dL (Neg-Trace); Specific Gravity,Urine 1.021 (1.010-1.025); Urobilinogen,Urine Normal (Normal)
[2019-04-13 10:27] LABS: Basophils # 0.1 K/mcL (0.0-0.2); Basophils % 0.5 %; Eosinophils # 1.3 K/mcL (0.0-0.6); Eosinophils % 8.6 %; Hematocrit 41.5 % (37.5-50.1); Hemoglobin 13.5 g/dL (12.9-16.9); Immature Granulocytes % 0.6 % (0-4); Lymphocytes # 1.3 K/mcL (0.6-4.6); Lymphocytes % 8.2 %; Mean Corpuscular HGB Conc 32.5 g/dL (31.6-35.5); Mean Corpuscular Hemoglobin 27.7 pg (28.0-33.3); Mean Corpuscular Volume 85.2 fL (83.0-100.0); Mean Platelet Volume 11.6 fL (9.4-12.4); Monocytes # 2.3 K/mcL (0.0-1.3); Monocytes % 14.7 %; Neutrophils # 10.5 K/mcL (1.6-8.9); Platelet Count 191 K/mcL (140-400); Red Blood Count 4.87 M/mcL (4.19-5.50); Red Cell Distribution Width 14.9 % (11.5-14.5); Segmented Neutrophils % 67.4 %; White Blood Count 15.6 K/mcL (4.3-11.1)
[2019-04-13 10:53] LABS: Albumin 3.5 g/dL (3.5-5.7); Albumin/Globulin Ratio 1.1 (1.1-2.2); Bilirubin,Direct 0.3 mg/dL (0.0-0.2); Bilirubin,Indirect 0.7 mg/dL (0.0-1.0); Calcium 9.1 mg/dL (8.6-10.3); Globulin 3.2 g/dL (2.4-3.5); Potassium 4.5 mEq/L (3.5-5.1); Total Protein 6.7 g/dL (6.4-8.9); Troponin I 0.03 ng/mL (< 0.04)
[2019-04-13] MEDS ORDERED: Cefepime HCl 1,000 MG in 0.9 % Sodium Chloride Mini Bag 100 ML IVPB STA (11:04)
[2019-04-13] MEDS ORDERED: Naloxone 0.4 MG/ML INJ IVP PRN (11:58)
[2019-04-13] MEDS ORDERED: Ondansetron 4 MG/2 ML VIAL IVP PRN (11:58)
[2019-04-13] MEDS ORDERED: Amiodarone Premix 150 MG/100 ML BAG IVPB ONE (11:58)
[2019-04-13] MEDS ORDERED: Amiodarone Premix 360 MG/200 ML BAG IVC ONE (12:09)
[2019-04-13] MEDS ORDERED: Amiodarone Premix 360 MG/200 ML BAG IVC SCH (12:15)
[2019-04-13] MEDS ORDERED: Ipratropium/Albuterol Neb 3 ML IH SCH (12:15)
[2019-04-13] MEDS ORDERED: Levalbuterol Neb 1.25 MG/3 ML IH PRN (14:33)
[2019-04-13] MEDS ORDERED: Sennosides/Docusate Sodium TABLET PO PRN (14:33)
[2019-04-13] MEDS ORDERED: Ipratropium Neb 0.5 MG NEBULIZER IH PRN (14:33)
[2019-04-13] MEDS ORDERED: Diltiazem CD (24hr) 180 MG CAPSULE PO SCH (14:59)
[2019-04-13] MEDS ORDERED: *HR* Metoprolol 5 MG/5 ML VIAL IVP PRN (15:07)
[2019-04-13] MEDS: Azithromycin 500 MG in 0.9 % Sodium Chloride 250 ML IVPB SCH (15:54)
[2019-04-13] MEDS: Metoprolol 100 MG TABLET PO SCH ×2 (16:15→20:19)
[2019-04-13] MEDS ORDERED: D5% in Water 1,000 ML IVC PRN (17:18)
[2019-04-13] MEDS ORDERED: Dextrose Gel 15 GM/37.5 ML TUBE PO PRN ×2 (17:18)
[2019-04-13] MEDS ORDERED: *HR* Dextrose 50 % in Water (Syg) 50 ML SYRINGE IVP PRN (17:18)
[2019-04-13] MEDS: Cefepime HCl 1,000 MG in Water for inj. (sterile) 10 ML IVP SCH (17:27)
[2019-04-13] MEDS: methylPREDNISolone 125 MG/2 ML VIAL IVP SCH (17:32)
[2019-04-13] MEDS ORDERED: Insulin LISPRO 300 UNITS/3 ML VIAL SQ ONE (17:39)
[2019-04-13] MEDS: *HR* LORazepam 0.5 MG TABLET PO PRN (19:56)
[2019-04-13] MEDS: *HR* Dabigatran 150 MG CAPSULE PO SCH (19:56)
[2019-04-13] MEDS ORDERED: Insulin LISPRO 300 UNITS/3 ML VIAL SQ SCH (21:00)
[2019-04-13] MEDS: Ipratropium Neb 0.5 MG NEBULIZER IH SCH (21:48)
[2019-04-13] MEDS: Levalbuterol Neb 1.25 MG/3 ML IH SCH (21:48)
[2019-04-14] MEDS: Cefepime HCl 1,000 MG in Water for inj. (sterile) 10 ML IVP SCH ×3 (01:17→17:33)
[2019-04-14] MEDS: methylPREDNISolone 125 MG/2 ML VIAL IVP SCH ×4 (01:18→16:23)
[2019-04-14 01:35] LABS: Basophils % 0.3 %; Eosinophils # 0.4 K/mcL (0.0-0.6); Eosinophils % 2.9 %; Hematocrit 37.7 % (37.5-50.1); Immature Granulocytes % 0.7 % (0-4); Lymphocytes # 0.5 K/mcL (0.6-4.6); Lymphocytes % 4.2 %; Mean Corpuscular Hemoglobin 27.7 pg (28.0-33.3); Mean Corpuscular Volume 89.3 fL (83.0-100.0); Monocytes # 0.3 K/mcL (0.0-1.3); Monocytes % 2.1 %; Platelet Count 164 K/mcL (140-400); Red Blood Count 4.22 M/mcL (4.19-5.50); Red Cell Distribution Width 14.8 % (11.5-14.5); Segmented Neutrophils % 89.8 %; White Blood Count 12.3 K/mcL (4.3-11.1)
[2019-04-14 01:36] LABS: Hemoglobin 11.7 g/dL (12.9-16.9)
[2019-04-14 01:56] LABS: Calcium 8.9 mg/dL (8.6-10.3); Chol/HDL Ratio 3.5 (0-4.9); Magnesium 1.9 mg/dL (1.6-2.6); Potassium 5.8 mEq/L (3.5-5.1)
[2019-04-14] MEDS: Ipratropium Neb 0.5 MG NEBULIZER IH SCH ×4 (04:51→22:19)
[2019-04-14] MEDS: Levalbuterol Neb 1.25 MG/3 ML IH SCH ×4 (04:51→22:19)
[2019-04-14] MEDS: *HR* LORazepam 0.5 MG TABLET PO PRN (05:09)
[2019-04-14] MEDS: Insulin LISPRO 300 UNITS/3 ML VIAL SQ SCH ×4 (08:55→23:58)
[2019-04-14] MEDS ORDERED: Diltiazem CD (24hr) 240 MG CAPSULE PO SCH (09:00)
[2019-04-14] MEDS: Aspirin Enteric Coated 81 MG Tablet PO SCH (09:05)
[2019-04-14] MEDS: *HR* Dabigatran 150 MG CAPSULE PO SCH ×2 (09:05→20:45)
[2019-04-14] MEDS: Metoprolol 100 MG TABLET PO SCH ×2 (09:23→20:45)
[2019-04-14 10:31] LABS: Estimated Average Glucose 134 mg/dl
[2019-04-14] MEDS ORDERED: 0.9 % Sodium Chloride 1,000 ML IVC SCH (11:00)
[2019-04-14] MEDS ORDERED: Insulin DETEMIR 100 UNIT/ML X5UNITS SQ ONE (12:59)
[2019-04-14 16:23] LABS: Calcium 8.9 mg/dL (8.6-10.3); Potassium 4.8 mEq/L (3.5-5.1)
[2019-04-14] MEDS: Azithromycin 500 MG in 0.9 % Sodium Chloride 250 ML IVPB SCH (16:23)
[2019-04-15] MEDS: methylPREDNISolone 125 MG/2 ML VIAL IVP SCH ×3 (00:27→18:24)
[2019-04-15] MEDS: Cefepime HCl 1,000 MG in Water for inj. (sterile) 10 ML IVP SCH ×3 (00:27→18:27)
[2019-04-15] MEDS: Levalbuterol Neb 1.25 MG/3 ML IH SCH ×4 (03:45→22:46)
[2019-04-15] MEDS: Ipratropium Neb 0.5 MG NEBULIZER IH SCH ×4 (03:45→22:46)
[2019-04-15 07:07] LABS: Basophils % 0.1 %; Eosinophils # 0.1 K/mcL (0.0-0.6); Eosinophils % 0.6 %; Hematocrit 36.1 % (37.5-50.1); Hemoglobin 11.4 g/dL (12.9-16.9); Immature Granulocytes % 0.8 % (0-4); Lymphocytes # 0.9 K/mcL (0.6-4.6); Lymphocytes % 4.1 %; Mean Corpuscular HGB Conc 31.6 g/dL (31.6-35.5); Mean Corpuscular Hemoglobin 27.6 pg (28.0-33.3); Mean Corpuscular Volume 87.4 fL (83.0-100.0); Mean Platelet Volume 11.9 fL (9.4-12.4); Monocytes # 0.5 K/mcL (0.0-1.3); Monocytes % 2.3 %; Neutrophils # 19.4 K/mcL (1.6-8.9); Platelet Count 181 K/mcL (140-400); Red Blood Count 4.13 M/mcL (4.19-5.50); Red Cell Distribution Width 14.7 % (11.5-14.5); Segmented Neutrophils % 92.1 %
[2019-04-15 07:15] LABS: White Blood Count 21.1 K/mcL (4.3-11.1)
[2019-04-15] MEDS ORDERED: Insulin DETEMIR 100 UNIT/ML X5UNITS SQ ONE (07:16)
[2019-04-15 07:26] LABS: BUN/Creatinine Ratio 31 (6-26); Blood Urea Nitrogen 41 mg/dL (8-23); Calcium 9.1 mg/dL (8.6-10.3); Carbon Dioxide 23 mEq/L (23-29); Chloride 103 mEq/L (98-107); Glucose 286 mg/dL (70-105); Osmolality,Calculated 301 (280-300); Potassium 5.1 mEq/L (3.5-5.1); Sodium 135 mEq/L (136-145); eGFR For African Americans > 60 (> 60); eGFR For Non-African Americans 53 (> 60)
[2019-04-15] MEDS: Aspirin Enteric Coated 81 MG Tablet PO SCH (08:01)
[2019-04-15] MEDS: *HR* Dabigatran 150 MG CAPSULE PO SCH ×2 (08:01→22:01)
[2019-04-15] MEDS: Insulin LISPRO 300 UNITS/3 ML VIAL SQ SCH ×4 (08:02→22:01)
[2019-04-15] MEDS: Metoprolol 100 MG TABLET PO SCH ×2 (08:02→22:01)
[2019-04-15] MEDS: Diltiazem CD (24hr) 180 MG CAPSULE PO SCH (12:18)
[2019-04-15 14:18] LABS: Bilirubin,Urine Negative (Negative); Blood,Urine Negative (Negative); Clarity,Urine Clear (Clear); Color,Urine Yellow (Yellow); Glucose,Urine (UA) Normal (Normal); Ketones,Urine Negative (Negative); Leukocyte Esterase,Urine Negative (Negative); Nitrite,Urine Negative (Negative); Protein,Urine Trace mg/dL (Neg-Trace); Specific Gravity,Urine 1.022 (1.010-1.025); Urobilinogen,Urine Normal (Normal)
[2019-04-15] MEDS: Azithromycin 500 MG in 0.9 % Sodium Chloride 250 ML IVPB SCH (16:59)
[2019-04-15] MEDS: *HR* LORazepam 0.5 MG TABLET PO PRN (18:21)
[2019-04-16] MEDS: Cefepime HCl 1,000 MG in Water for inj. (sterile) 10 ML IVP SCH ×3 (02:04→17:34)
[2019-04-16 02:36] LABS: Basophils % 0.1 %; Eosinophils % 0.2 %; Hematocrit 37.5 % (37.5-50.1); Hemoglobin 12.2 g/dL (12.9-16.9); Immature Granulocytes % 1.2 % (0-4); Lymphocytes # 0.6 K/mcL (0.6-4.6); Lymphocytes % 3.6 %; Mean Corpuscular HGB Conc 32.5 g/dL (31.6-35.5); Mean Corpuscular Hemoglobin 27.9 pg (28.0-33.3); Mean Corpuscular Volume 85.8 fL (83.0-100.0); Monocytes # 0.6 K/mcL (0.0-1.3); Monocytes % 3.1 %; Neutrophils # 16.4 K/mcL (1.6-8.9); Platelet Count 202 K/mcL (140-400); Red Blood Count 4.37 M/mcL (4.19-5.50); Red Cell Distribution Width 14.9 % (11.5-14.5); Segmented Neutrophils % 91.8 %; White Blood Count 17.9 K/mcL (4.3-11.1)
[2019-04-16 02:58] LABS: BUN/Creatinine Ratio 32 (6-26); Blood Urea Nitrogen 44 mg/dL (8-23); Calcium 9.3 mg/dL (8.6-10.3); Carbon Dioxide 24 mEq/L (23-29); Chloride 105 mEq/L (98-107); Glucose 330 mg/dL (70-105); Osmolality,Calculated 308 (280-300); Potassium 4.5 mEq/L (3.5-5.1); Sodium 137 mEq/L (136-145); eGFR For African Americans > 60 (> 60); eGFR For Non-African Americans 50 (> 60)
[2019-04-16] MEDS: Levalbuterol Neb 1.25 MG/3 ML IH SCH ×4 (04:25→22:20)
[2019-04-16] MEDS: Ipratropium Neb 0.5 MG NEBULIZER IH SCH ×4 (04:25→22:19)
[2019-04-16] MEDS: *HR* LORazepam 0.5 MG TABLET PO PRN (06:41)
[2019-04-16] MEDS: methylPREDNISolone 125 MG/2 ML VIAL IVP SCH ×2 (06:41→09:14)
[2019-04-16] MEDS ORDERED: Insulin DETEMIR 100 UNIT/ML X5UNITS SQ ONE (07:11)
[2019-04-16] MEDS: *HR* Dabigatran 150 MG CAPSULE PO SCH ×2 (09:13→19:58)
[2019-04-16] MEDS: Aspirin Enteric Coated 81 MG Tablet PO SCH (09:14)
[2019-04-16] MEDS: Metoprolol 100 MG TABLET PO SCH ×2 (09:14→19:58)
[2019-04-16] MEDS: Diltiazem CD (24hr) 180 MG CAPSULE PO SCH (09:14)
[2019-04-16] MEDS: Insulin LISPRO 300 UNITS/3 ML VIAL SQ SCH ×4 (09:20→19:58)
[2019-04-16] MEDS: Azithromycin 500 MG in 0.9 % Sodium Chloride 250 ML IVPB SCH (17:28)
[2019-04-17] MEDS: Cefepime HCl 1,000 MG in Water for inj. (sterile) 10 ML IVP SCH ×2 (01:34→08:08)
[2019-04-17] MEDS: *HR* LORazepam 0.5 MG TABLET PO PRN ×3 (01:34→09:00)
[2019-04-17] MEDS: Levalbuterol Neb 1.25 MG/3 ML IH SCH (04:07)
[2019-04-17] MEDS: Ipratropium Neb 0.5 MG NEBULIZER IH SCH (04:07)
[2019-04-17 04:43] LABS: Basophils % 0.1 %; Eosinophils % 0.1 %; Hematocrit 34.9 % (37.5-50.1); Hemoglobin 11.2 g/dL (12.9-16.9); Immature Granulocytes % 1.4 % (0-4); Lymphocytes # 0.8 K/mcL (0.6-4.6); Lymphocytes % 5.8 %; Mean Corpuscular HGB Conc 32.1 g/dL (31.6-35.5); Mean Corpuscular Hemoglobin 27.5 pg (28.0-33.3); Mean Corpuscular Volume 85.5 fL (83.0-100.0); Monocytes # 0.5 K/mcL (0.0-1.3); Monocytes % 3.5 %; Neutrophils # 11.6 K/mcL (1.6-8.9); Platelet Count 201 K/mcL (140-400); Red Blood Count 4.08 M/mcL (4.19-5.50); Red Cell Distribution Width 14.7 % (11.5-14.5); Segmented Neutrophils % 89.1 %
[2019-04-17 05:09] LABS: BUN/Creatinine Ratio 36 (6-26); Blood Urea Nitrogen 40 mg/dL (8-23); Calcium 8.7 mg/dL (8.6-10.3); Carbon Dioxide 25 mEq/L (23-29); Chloride 106 mEq/L (98-107); Glucose 214 mg/dL (70-105); Osmolality,Calculated 296 (280-300); Potassium 5.1 mEq/L (3.5-5.1); Sodium 135 mEq/L (136-145); eGFR For African Americans > 60 (> 60); eGFR For Non-African Americans > 60 (> 60)
[2019-04-17 07:51] VITALS: BP 112/61
[2019-04-17] MEDS: Insulin LISPRO 300 UNITS/3 ML VIAL SQ SCH (08:08)
[2019-04-17] MEDS: methylPREDNISolone 125 MG/2 ML VIAL IVP SCH (08:08)
[2019-04-17] MEDS: Metoprolol 100 MG TABLET PO SCH (08:09)
[2019-04-17] MEDS: *HR* Dabigatran 150 MG CAPSULE PO SCH (08:09)
[2019-04-17] MEDS: Aspirin Enteric Coated 81 MG Tablet PO SCH (08:09)
[2019-04-17] MEDS: Diltiazem CD (24hr) 180 MG CAPSULE PO SCH (08:09)
== END 2019-04-17 09:17 | disposition home or self-care (01) | DRG 871 ==
LOC: EMEROOARM 09:43 → 2NENU 09:43 → SUATTDRO 11:30 → 2NENU 11:42 → 2NNU 14:03
PROVIDERS: ADMIT Student in an Organized Health Care Education/Training Program; ATTEND Family Medicine